=== PATIENT | male | born 1935 | race Caucasian/White ===

== ENCOUNTER 2017-07-23 10:30 | Observation (INO) ==
[2017-07-23 10:57] LABS: Basophils % 0.2 %; Eosinophils # 0.1 K/mcL (0.0-0.6); Eosinophils % 1.2 %; Hematocrit 40.9 % (37.5-50.1); Hemoglobin 13.6 g/dL (12.9-16.9); Immature Granulocytes % 0.3 % (0-4); Lymphocytes # 1.2 K/mcL (0.6-4.6); Lymphocytes % 20.2 %; Mean Corpuscular HGB Conc 33.3 g/dL (31.6-35.5); Mean Corpuscular Hemoglobin 31.7 pg (28.0-33.3); Mean Corpuscular Volume 95.3 fL (83.0-100.0); Mean Platelet Volume 11.6 fL (9.4-12.4); Monocytes # 0.5 K/mcL (0.0-1.3); Monocytes % 7.9 %; Neutrophils # 4.2 K/mcL (1.6-8.9); Platelet Count 167 K/mcL (140-400); Red Blood Count 4.29 M/mcL (4.19-5.50); Segmented Neutrophils % 70.2 %
--- NOTE | 2017-07-23 11:02 | Emergency Department Note ---
Disposition Clinical Impression: Chest pain at rest Disposition: Admitted As Inpatient Condition: Fair Referrals: Lilly Valdez, [employer] [Primary Care Provider] - Forms: ED Satisfaction Letter Time of Disposition: 12:40 Chest Pain HPI - General Chief Complaint: ED Chest Pain Stated Complaint: CP,ABD Pain, Back Pain Time Seen by Provider: 07/23/17 10:33 Vital Signs Reviewed: Yes Nursing Notes Reviewed: Yes - History of Present Illness HPI Narrative: Mr. Crain is a 81 y/o smoker with a past medical history of aortic aneurysm who presents with chest pain and mid-epigastric abdominal pain that radiates to the back. She states that the abdominal pain is a constant and dull pain and has been going on for 2 weeks. He states that the abdominal pain radiates straight to his mid back. The patient recalls that his aortic aneurysm was last checked a couple of years ago and it was not concerning at the time. Patient admits that the chest pain began 2 days ago and describe it as and intermittent and dull pain with alot of pressure. He does not know if the radiation of pain to the pain is from his abdomen only or from his chest pain as well. The patient admits tingling in both of his lower extremities. He denies any radiation to the jaw or upper extremities. He denies any fever, headaches, shortness of breath, difficulty in breathing, constipation, diarrhea , blood in the stool, blood in his urination, dysuria, any focal neurological deficits. Onset (ago): day(s) (Chest pain was present for the past 2 days and the abdominal pain has been present for 2 weeks.) Pain Location: left chest Severity scale (1-10): 6 Quality: dull, other (pressure feeling in his left chest) Pain Radiation: back Improves with: nothing Worsens with: movement Associated symptoms: Denies: nausea, vomiting, diaphoresis, dyspnea, syncope, palpitations, fever, cough - Related Data Home Medications Medication Instructions Recorded Confirmed Atorvastatin [Lipitor] 40 mg PO HS 04/26/16 11/13/16 Docusate [Colace] 100 mg PO HS PRN 04/26/16 11/13/16 Esomeprazole Magnesium [Nexium] 40 mg PO DAILY 04/26/16 11/13/16 Losartan/HCTZ [Hyzaar 50-12.5 1 tab PO DAILY 04/26/16 11/13/16 Tablet] Megestrol Acetate [Megace] 40 mg PO DAILY 04/26/16 11/13/16 Methadone 10 mg PO Q8HR 04/26/16 11/13/16 Nitroglycerin [Nitrostat] 0.4 mg SL AD PRN 04/26/16 11/13/16 Oxycodone HCl 5 mg PO Q6H PRN 04/26/16 11/13/16 Potassium Chloride [K-Tab ER] 10 meq PO DAILY 04/26/16 11/13/16 Quetiapine Fumarate [Seroquel] 100 mg PO HS 04/26/16 11/13/16 Sertraline [Zoloft] 100 mg PO DAILY 04/26/16 11/13/16 Travoprost [Travatan Z] 1 drop OP QPM 04/26/16 11/13/16 Zolpidem [Ambien] 10 mg PO HS 04/26/16 11/13/16 Lactose-Reduced Food [Ensure 1 bottle PO TID 06/13/16 11/13/16 Complete] Ondansetron HCl [Zofran] 8 mg PO Q8H PRN 06/13/16 11/13/16 DULoxetine [Cymbalta] 30 mg PO DAILY 06/27/16 11/13/16 Esomeprazole Magnesium [Nexium] 40 mg PO DAILY 11/13/16 11/13/16 Previous Rx's Medication Instructions Recorded Naproxen [Naprosyn] 500 mg PO BID #10 tablet 06/15/16 Tramadol HCl [Ultram] 50 mg PO BID PRN #10 tab 04/13/17 Dicyclomine [Bentyl] 10 mg PO QID PRN #40 capsule 06/12/17 Allergies Allergy/AdvReac Type Severity Reaction Status Date / Time codeine AdvReac Dizziness Verified 06/11/17 10:42 sucralfate [From Carafate] AdvReac Gastrointestinal Verified 06/11/17 10:42 Upset Constitutional: Denies: fever, chills, weakness, weight change Eyes: Denies: eye pain, eye discharge, vision change ENT ED: Denies: ear pain, throat pain, dental pain, hearing loss, epistaxis, congestion, dysphagia Cardiovascular: Reports: chest pain (intermittent dull chest pain ). Denies: palpitations, dyspnea on exertion, edema, syncope Respiratory: Denies: cough, dyspnea, wheezes, hemoptysis, stridor Gastrointestinal: Reports: abdominal pain (midepigastric abdominal pain that radiates to his mid back). Denies: nausea, vomiting, diarrhea, constipation, hematemesis, melena, hematochezia Genitourinary: Denies: urgency, dysuria, frequency, hematuria Musculoskeletal: Reports: back pain (midback pain), other (There are no recent trauma to the area). Denies: neck pain, arthralgia, myalgia Integumentary: Denies: rash, abrasion, lesions Neurological: Reports: paresthesias (paresthesias in both of his lower extremities). Denies: headache, weakness, numbness, confusion, abnormal gait, vertigo Psychiatric: Denies: anxiety, depression, suicidal thoughts, homicidal thoughts , auditory hallucinations, visual hallucinations Endocrine: Denies: fatigue Hematological/Lymphatic: Denies: easy bleeding, easy bruising Allergic/Immunologic: Denies: facial swelling, urticaria Chest Pain PMH - Past Medical History Medical history: Reports: COPD, coronary artery disease, GERD, glaucoma, hyperlipidemia, hypertension, thyroid disease, other Surgical history: Reports: cholecystectomy, orthopedic, other Psychiatric history: Reports: anxiety, depression - Social History Smoking Status: Current every day smoker Alcohol use: Reports: none Drug use: Reports: none Physical Exam - General Limitations: no limitations General appearance: alert, in no apparent distress - Head Head exam: atraumatic, normocephalic, normal inspection - Eye Eye exam: Present: normal appearance, PERRL, EOMI - Expanded Eye Exam Pupils: Left: reactive - ENT ENT exam: normal exam, normal oropharynx, mucous membranes moist - Expanded ENT Exam External ear exam: Present: normal external inspection Mouth exam: Present: normal external inspection Teeth exam: Present: normal inspection Throat exam: Present: normal inspection - Neck Neck exam: Present: normal inspection, full ROM, trachea midline - Chest Chest inspection: Present: normal inspection, symmetric chest wall rise - Respiratory Respiratory exam: Present: normal lung sounds bilaterally. Absent: respiratory distress, wheezes - Cardiovascular Cardiovascular exam: Present: regular rate, normal rhythm, normal heart sounds. Absent: rubs, gallop, clicks - Abdominal Exam Abdominal exam: Present: soft, tenderness (tenderness to palpation in the midepigastric and in the LLQ). Absent: distention, guarding, rebound, rigidity , trauma Abdominal tenderness: Present: LLQ, epigastrium - Extremities Exam Extremities exam: Present: normal inspection, full ROM. Absent: tenderness, pedal edema, joint swelling, calf tenderness - Expanded Upper Extremity Exam Shoulder exam: Present: normal inspection, full ROM Arm exam: Present: normal inspection, full ROM Elbow exam: Present: normal inspection, full ROM Forearm/Wrist exam: Present: normal inspection, full ROM Hand exam: Present: normal inspection, full ROM Vascular exam: Normal: capillary refill, radial pulse - Expanded Lower Extremity Exam Hip/Pelvis exam: Present: normal inspection, full ROM Upper leg exam: Present: normal inspection, full ROM. Absent: tenderness, swelling Knee exam: Present: normal inspection, full ROM Lower leg exam: Present: normal inspection, full ROM. Absent: tenderness, swelling Ankle exam: Present: normal inspection, full ROM Foot/toe exam: Present: normal inspection, full ROM Neurovascular/Tendon exam: Absent: motor deficit, sensory deficit, tendon deficit - Back Exam Back exam: Present: normal inspection, full ROM, tenderness. Absent: CVA tenderness (R), CVA tenderness (L) (tenderness in his midback) - Neurological Exam Neurological exam: Present: alert, oriented X3 - Expanded Neurological Exam Patient oriented to: Present: person, place, time Coma Scale Eye Opening: Spontaneous Coma Scale Motor Response: Obeys Commands Coma Scale Verbal Response: Oriented Coma Scale Total: 15 - Psychiatric Psychiatric exam: Present: normal affect, normal mood - Skin Skin exam: Present: warm, dry, intact, normal color Course Course Narrative: Mr. Crain is a 81 y/o M with a past medical history of aortic aneurysm who presents with epigastric pain that radiates to the back and this has been going on for 2 weeks. He also complains of chest pain that started two days ago. He states that it radiates to the back and describe it as an intermittent dull pain with a lot of pressure. The chest pain was not alleviated with Nitro in the ED, but he admits the morphine helped with the pain. CXR and CTA of chest, abdomen, and pelvis has been reviewed and showed no evidence of thoracic aortic dissection or pulmonary embolus. The patient will be admitted to rule out ACS. The patient agrees to this plan. 12:[address] Mirza, the hospitalist, and he agrees to accept the patient. - Consultations Consultation #1: 12:35 pm: Spoke with Dr. Mirza, the hospitalist, and he agreed to accept the patient. Time: 12:36 Vital Signs Temperature 98.3 F 07/23/17 10:39 Pulse Rate 90 07/23/17 10:39 Respiratory Rate 18 07/23/17 10:39 Blood Pressure 167/101 07/23/17 10:39 O2 Sat by Pulse Oximetry 95 07/23/17 10:39 Temperature 98.3 F 07/23/17 10:39 Pulse Rate 71 07/23/17 11:40 Respiratory Rate 16 07/23/17 11:40 Blood Pressure 133/83 07/23/17 11:50 O2 Sat by Pulse Oximetry 97 07/23/17 11:40 Oxygen Delivery Oxygen Delivery Room Air Chest Pain - MDM Narrative Medical decision making narrative: Mr. Crain is a 81 y/o M who presents with epigastric pain that radiates to the back and this has been going on for 2 weeks. He also complains of chest pain that started two days ago. He states that it radiates to the back and describe it as an intermittent dull pain with a lot of pressure. The chest pain was not alleviated with Nitro in the ED, but he admits the morphine helped with the pain. CXR and CTA of chest, abdomen, and pelvis has been reviewed and showed no evidence of thoracic aortic dissection or pulmonary embolus. The patient will be admitted to rule out ACS. The patient agrees to this plan. - Medical Records Medical records reviewed: Yes I reviewed the patient's medical records. - Lab Data Lab results reviewed: Yes I reviewed the patient's lab results. Result diagrams: 07/23/17 10:54 07/23/17 10:54 Lab Results 07/23/17 07/23/17 07/23/17 Range/Units 10:54 10:54 10:54 WBC 5.9 (4.3-11.1) K/mcL RBC 4.29 (4.19-5.50) M/mcL Hgb 13.6 (12.9-16.9) g/dL Hct 40.9 (37.5-50.1) % MCV 95.3 (83.0-100.0) fL MCH 31.7 (28.0-33.3) pg MCHC 33.3 (31.6-35.5) g/dL RDW 13.0 (11.5-14.5) % Plt Count 167 (140-400) K/mcL MPV 11.6 (9.4-12.4) fL Immature Gran % 0.3 (0-4) % Seg Neutrophils % 70.2 % Lymphocytes % 20.2 % Monocytes % 7.9 % Eosinophils % 1.2 % Basophils % 0.2 % Neutrophils # 4.2 (1.6-8.9) K/mcL Lymphocytes # 1.2 (0.6-4.6) K/mcL Monocytes # 0.5 (0.0-1.3) K/mcL Eosinophils # 0.1 (0.0-0.6) K/mcL Basophils # 0.0 (0.0-0.2) K/mcL Sodium 143 (136-145) mEq/L Potassium 3.2 L (3.5-4.5) mEq/L Chloride 114 H (98-109) mEq/L Carbon Dioxide 22 (19-29) mEq/L BUN 8 (8-26) mg/dL Creatinine 0.71 L (0.72-1.25) mg/dL Est GFR ( Amer) > 60 (> 60) Est GFR (Non-Af Amer) > 60 (> 60) BUN/Creatinine Ratio 11 (6-26) Glucose 93 (70-99) mg/dL Calculated Osmolality 294 (280-300) Calcium 8.2 L (8.6-10.8) mg/dL Total Bilirubin 0.4 (0.2-1.2) mg/dL AST 16 (5-34) Units/L ALT 11 (0-55) Units/L Alkaline Phosphatase 74 (38-126) Units/L Troponin I 0.02 (0-0.03) ng/mL Serum Total Protein 6.3 (6.0-8.3) g/dL Albumin 3.4 L (3.5-5.0) g/dL Globulin 2.9 (2.4-3.5) g/dL Albumin/Globulin Ratio 1.2 (1.1-2.2) Lipase 24 (8-78) Units/L - EKG Data EKG attestation: Yes I reviewed and interpreted this EKG. EKG shows normal: sinus rhythm Rate: normal Rhythm: NSR [place]/QRS: normal When compared to previous EKG there are: no significant changes Interpretation: normal EKG
--- NOTE | 2017-07-23 11:02 | Emergency Department Note ---
START Narrative - START START: I examined this patient and my medical decision-making was reviewed with the Resident Physician. I agree with the documented findings, disposition and treatment plan as described except to the extent set forth below. 81-year-old male presents to the ER with chest pain abdominal pain and back pain. He denies history of coronary disease. Denies ulcer symptoms. No blood in his stool. Pain is located in the upper abdomen and radiates to his back. No vomiting or diarrhea. Plan to do a CTA chest abdomen pelvis to evaluate his aorta. He states he has a known AAA diagnosis in the past. Symptom onset has been 3 weeks. He thought it was worse today.
[2017-07-23 11:12] LABS: Alanine Aminotransferase 11 Units/L (0-55); Albumin 3.4 g/dL (3.5-5.0); Albumin/Globulin Ratio 1.2 (1.1-2.2); Alkaline Phosphatase 74 Units/L (38-126); Aspartate Amino Transferase 16 Units/L (5-34); BUN/Creatinine Ratio 11 (6-26); Bilirubin,Total 0.4 mg/dL (0.2-1.2); Blood Urea Nitrogen 8 mg/dL (8-26); Calcium 8.2 mg/dL (8.6-10.8); Carbon Dioxide 22 mEq/L (19-29); Chloride 114 mEq/L (98-109); Globulin 2.9 g/dL (2.4-3.5); Glucose 93 mg/dL (70-99); Lipase 24 Units/L (8-78); Osmolality,Calculated 294 (280-300); Potassium 3.2 mEq/L (3.5-4.5); Sodium 143 mEq/L (136-145); Total Protein 6.3 g/dL (6.0-8.3); eGFR For African Americans > 60 (> 60); eGFR For Non-African Americans > 60 (> 60)
[2017-07-23] MEDS: Nitroglycerin 0.4 MG TAB.SUBL SL PRN ×2 (11:39→11:49)
[2017-07-23] MEDS ORDERED: *HR* Morphine 2 MG/ML SYRINGE IVP ONE (11:52)
[2017-07-23] MEDS ORDERED: Ondansetron 4 MG/2 ML VIAL IVP PRN (13:20)
[2017-07-23] MEDS ORDERED: Naloxone 0.4 MG/ML INJ IVP PRN (13:20)
[2017-07-23] MEDS ORDERED: Acetaminophen 325 MG TABLET PO PRN (13:20)
--- NOTE | 2017-07-23 13:40 | Internal Med History&Physical ---
<Jacki Torres - Last Filed: 07/23/17 14:37> Date of Encounter: 07/23/17 Time of Encounter: 13:34 Assessment and Plan (1) Chest pain Current visit: Yes Status: Acute 1 patient has been having CP x2 days which he describes as dull pressure, nonradiating he did have a cardiac catheterization in 2013 which showed mild CAD nonocclusive he underwent a stress test last year which was negative for any ischemia. His first troponin is 0.02 which we will continue to trend 2 we will continue with aspirin and statin bladder low-dose beta eliezer 3 continuous cardiac monitoring 4 NPO by mouth after midnight 5 stress test in a.m. 6 consult cardiology as needed 7 nitroglycerin and morphine as needed for chest pain 8 oxygen as needed to maintain SPO2 greater than 92% Qualifiers: Chest pain type: unspecified Qualified Code(s): R07.9 - Chest pain, unspecified (2) HTN (hypertension) Current visit: Yes Status: Acute 1 we will add low-dose metoprolol 12.5 twice a day and monitor blood pressure Qualifiers: Hypertension type: essential hypertension Qualified Code(s): I10 - Essential (primary) hypertension (3) Tobacco abuse Current visit: Yes Status: Acute Encourage patient to stop smoking nicotine patch (4) Abdominal pain Current visit: No Status: Chronic 1 patient has been experiencing chronic abdominal pain for over a year. He is seen by Dr. Munoz as outpatient. It seems he had an EGD completed in December which was normal. According to [facility] notes of Dr. Mancuso he suspects this is related to chronic pancreatitis. 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 MRI in November showed diffuse atrophy of the pancreas with no dilatation of the pancreatic duct. He was to be referred to [facility] pancreatic center for further care. We will have patient follow-up as outpatient and consult as needed 2 protonix IV twice a day Qualifiers: Abdominal location: generalized Qualified Code(s): R10.84 - Generalized abdominal pain (5) History of abdominal aortic aneurysm Current visit: No Status: Chronic Previous CT 04/27/16 showed stable ascending thoracic aortic aneurysm measuring 3.9 cm today aneurysm measures 4 cm. We will control blood pressure maintaining systolic less than 140. (6) DVT prophylaxis Current visit: Yes Status: Acute [facility] Internal Medicine - H&P: HPI Chief complaint: cp Admitted From: Emergency Dept Plans for Post Hospital Care: Home History of present illness: Mr. Crain is a 81 year old male has history of mild CAD chronic abdominal pain hypertension hyperlipidemia GERD with esophagitis aortic aneurysm and chronic tobacco abuse. Patient has been experiencing abdominal pain that has been ongoing for the past 2 weeks. Describes the pain as dull and it radiates to his mid back. He also has been experiencing sternal chest pain 10/10 to describes as intermittent dull pressure which is nonradiating and is aggravated with exertion and relieved with rest. He also has associated symptoms of nausea and shortness of breath diaphoresis and lightheadedness. He did have a cardiac stress test last year which was negative for any ischemia. He also had a cardiac catheterization in 2013 which showed nonocclusive CAD. He denies any fevers chills vomiting diarrhea or palpitations. He presented to the ER with complaints ER workup revealed unremarkable lab work troponin 0.02. EKG with no ST-T wave abnormalities noted. Chest x-ray with no acute process CTA of abdomen and chest revealed no evidence of thoracic aortic dissection or pulmonary embolism. Ascending thoracic aorta ectasia 4 cm in diameter according to records previous measurement and 04/27/2016 showed a measurement of 3.9 cm. The patient was Morphine Which Did Ease His Pain and He Has Been Admitted for Further Workup and Evaluation. Presently patient complains of epigastric burning and midsternal chest pressure which he rates as 6 out of 10. He is sinus rhythm on the monitor on sounds are clear heart sounds are regular S1 and S2 with no murmurs clicks, murmurs noted. Abdomen is soft tenderness to palpation in epigastric region and LLQ. He is hemodynamically stable this time I reviewed this case with Dr Mirza who agrees with plan Past Med Surg Social Fam HX - Past Medical History Medical history: COPD, coronary artery disease, GERD, glaucoma, hyperlipidemia, hypertension, thyroid disease, other Psychiatric history: anxiety, depression - Past Surgical History Surgical History: cholecystectomy, orthopedic, other - Social History Smoking Status: Current every day smoker Smokeless Tobacco Status: No Alcohol use: none Drug use: none - Family History Mother Adopted: No Family Member Ethnicity: Non- Living Status: Hx Family Cardiac Disorders: Yes Hx Family Respiratory Disorders: No Hx Family Cancer: Yes Hx Family GI Disorders: No Hx Family Endocrine Disorder: No Hx Family Neuromuscular Disorders: No Hx Family Neurologic Disorders: No Hx Family HEENT Disorders: No Hx Family Autoimmune Disorders: No Internal Medicine - H&P: Meds Atorvastatin [Lipitor] 40 mg PO HS 04/26/16 [History] Docusate [Colace] 100 mg PO HS PRN 04/26/16 [History] Esomeprazole Magnesium [Nexium] 40 mg PO DAILY 04/26/16 [History] Megestrol Acetate [Megace] 40 mg PO DAILY 04/26/16 [History] Nitroglycerin [Nitrostat] 0.4 mg SL AD PRN 04/26/16 [History] Potassium Chloride [K-Tab ER] 10 meq PO DAILY 04/26/16 [History] Quetiapine Fumarate [Seroquel] 100 mg PO HS 04/26/16 [History] Sertraline [Zoloft] 100 mg PO DAILY 04/26/16 [History] Zolpidem [Ambien] 10 mg PO HS 04/26/16 [History] Lactose-Reduced Food [Ensure Complete] 1 bottle PO TID 06/13/16 [History] DULoxetine [Cymbalta] 30 mg PO DAILY 06/27/16 [History] Tramadol HCl [Ultram] 50 mg PO BID PRN #10 tab 04/13/17 [Rx] Albuterol Sulfate [Albuterol Inhaler] 2 puff IH Q4-6H PRN 07/23/17 [History] Latanoprost [Xalatan] 1 drop BOTH EYES HS 07/23/17 [History] 3 Allergy/AdvReac Type Severity Reaction Status Date / Time codeine AdvReac Dizziness Verified 06/11/17 10:42 sucralfate [From Carafate] AdvReac Gastrointestinal Verified 06/11/17 10:42 Upset All Systems PM: A 10-system review of systems was performed and is negative for pertinent findings except as documented above in the HPI. - Constitutional Constitutional: no chills, no fever(s), no night sweats - EENT Eyes: no change in vision, no discharge, no pain, no photophobia Nose, mouth and throat: no dysphagia, no nasal discharge, no neck pain, no sore throat - Cardiovascular Cardiovascular ROS IM: chest pain, no diaphoresis, no dyspnea, no lightheadedness, no palpitations, no syncope - Respiratory Respiratory: no cough, no dyspnea, no wheezing, no excessive phlegm production - Gastrointestinal Gastrointestinal: abdominal pain, nausea, no diarrhea, no hematemesis, no hematochezia, no melena, no vomiting - Musculoskeletal Musculoskeletal ROS IM: no numbness, no tingling - Integumentary Integumentary IM: no rash, no unusual bruising - Neurological Neurological ROS: no confusion, no convulsions, no focal weakness, no numbness, no tingling, no tremor(s) - Hematologic/Lymphatic Hematologic/Lymphatic: no easy bruising - Constitutional Vitals: Temp Pulse Resp BP Pulse Ox 98.3 F 71 16 133/83 97 07/23/17 10:39 07/23/17 11:40 07/23/17 11:40 07/23/17 11:50 07/23/17 11:40 General appearance: Present: A&O X 3, answers questions appropriately - Head Head exam: Present: atraumatic, normocephalic - Eye Eye exam: Present: PERRL, conjuntiva pink, sclera anicteric Pupils: Present: PERRL - Neck Neck exam general surgery: Present: supple, trachea midline. Absent: lymphadenopathy - Respiratory Respiratory exam: Present: CTAB. Absent: accessory muscle use, rales, rhonchi, wheezes - Cardiovascular Cardiovascular exam: Present: RRR, +S1, +S2. Absent: diastolic murmur, gallop, rubs, systolic murmur - GI/Abdominal GI/Abdominal exam: Present: normal bowel sounds, soft, tenderness, no peritoneal signs. Absent: distended - Extremities Exam Extremities exam: Present: warm, radial pulses palpable and symmetrical. Absent : calf tenderness, cyanotic, pedal edema - Neurological Exam Neurological exam: Present: CN II-XII intact, oriented X3, no focal deficits. Absent: pronater drift, facial droop, speech deficit Internal Med - H&P Results - Labs CBC & Chem 7: 07/23/17 10:54 07/23/17 10:54 Labs: Short CBC 07/23/17 Range/Units 10:54 WBC 5.9 (4.3-11.1) K/mcL Hgb 13.6 (12.9-16.9) g/dL Hct 40.9 (37.5-50.1) % Plt Count 167 (140-400) K/mcL Neutrophils # 4.2 (1.6-8.9) K/mcL BMP 07/23/17 10:54 Sodium 143 Potassium 3.2 L Chloride 114 H Carbon Dioxide 22 BUN 8 Creatinine 0.71 L Glucose 93 Calcium 8.2 L Cardiac Enzymes 07/23/17 Range/Units 10:54 Troponin I 0.02 (0-0.03) ng/mL Liver Function 07/23/17 Range/Units 10:54 Total Bilirubin 0.4 (0.2-1.2) mg/dL AST 16 (5-34) Units/L ALT 11 (0-55) Units/L Alkaline Phosphatase 74 (38-126) Units/L Albumin 3.4 L (3.5-5.0) g/dL - EKG Data EKG shows normal: sinus rhythm Rate: normal - Impressions ITS Impressions Abdomen/Pelvis CTA 07/23/17 10:43 IMPRESSION: 1. No evidence of thoracic aortic dissection or pulmonary embolus. 2. Ascending thoracic aorta ectasia, 4 cm in diameter. 3. 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 4. Subendocardial hypodensity in the left ventricular apex. This may represent scar tissue in the setting of prior myocardial infarction or an area of hypoperfusion. 5. Incidental finding of a 1.5 cm hyperdensity in the right hepatic lobe. Finding not well seen on prior MRI of January 04, 2017. This would better be assessed with dedicated liver MRI. 6. Status post cholecystectomy with chronic mild dilation of the common bile duct. D/ / 07/23/2017 12:11:43 Tommie Robles MD / [facility] Interpreting Provider: Tommie Robles MD Chest CTA 07/23/17 10:43 IMPRESSION: 1. No evidence of thoracic aortic dissection or pulmonary embolus. 2. Ascending thoracic aorta ectasia, 4 cm in diameter. 3. 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 4. Subendocardial hypodensity in the left ventricular apex. This may represent scar tissue in the setting of prior myocardial infarction or an area of hypoperfusion. 5. Incidental finding of a 1.5 cm hyperdensity in the right hepatic lobe. Finding not well seen on prior MRI of January 04, 2017. This would better be assessed with dedicated liver MRI. 6. Status post cholecystectomy with chronic mild dilation of the common bile duct. D/ / 07/23/2017 12:11:43 Tommie Robles MD / [facility] Interpreting Provider: Tommie Robles MD Chest X-Ray 07/23/17 10:52 IMPRESSION: No acute process. D/ / Shira Mayo MD / Shira Mayo MD Interpreting Provider: Shira Mayo MD - Diagnostic Studies Other Images Additional comments: Abdomen/Pelvis CTA 07/23/17 10:43 IMPRESSION: 1. No evidence of thoracic aortic dissection or pulmonary embolus. 2. Ascending thoracic aorta ectasia, 4 cm in diameter. 3. 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 4. Subendocardial hypodensity in the left ventricular apex. This may represent scar tissue in the setting of prior myocardial infarction or an area of hypoperfusion. 5. Incidental finding of a 1.5 cm hyperdensity in the right hepatic lobe. Finding not well seen on prior MRI of January 04, 2017. This would better be assessed with dedicated liver MRI. 6. Status post cholecystectomy with chronic mild dilation of the common bile duct. D/ / 07/23/2017 12:11:43 Tommie Robles MD / [facility] Interpreting Provider: Tommie Robles MD Chest CTA 07/23/17 10:43 IMPRESSION: 1. No evidence of thoracic aortic dissection or pulmonary embolus. 2. Ascending thoracic aorta ectasia, 4 cm in diameter. 3. 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 4. Subendocardial hypodensity in the left ventricular apex. This may represent scar tissue in the setting of prior myocardial infarction or an area of hypoperfusion. 5. Incidental finding of a 1.5 cm hyperdensity in the right hepatic lobe. Finding not well seen on prior MRI of January 04, 2017. This would better be assessed with dedicated liver MRI. 6. Status post cholecystectomy with chronic mild dilation of the common bile duct. D/ / 07/23/2017 12:11:43 Tommie Robles MD / [facility] Interpreting Provider: Tommie Robles MD Chest X-Ray 07/23/17 10:52 IMPRESSION: No acute process. D/ / Shira Mayo MD / Shira Mayo MD Interpreting Provider: Shira Mayo MD <Louie Ferreira - Last Filed: 07/23/17 15:49> Date of Encounter: 07/23/17 Internal Medicine - H&P: HPI History of present illness: Mr. Crain is a 81 year old male All Systems PM: A 10-system review of systems was performed and is negative for pertinent findings except as documented above in the HPI. - Constitutional Vitals: Temp Pulse Resp BP Pulse Ox 97.6 F 64 16 133/80 98 07/23/17 15:02 07/23/17 15:02 07/23/17 15:02 07/23/17 15:02 07/23/17 15:02 Internal Med - H&P Results - Labs CBC & Chem 7: 07/23/17 10:54 07/23/17 10:54 - Attending Attestation I examined this patient and my medical decision-making was reviewed with the HAIR WORKER. I agree with the documented findings, disposition and treatment plan as described except to the extent set forth below. Patient is a 81-year-old male with past medical history of COPD, coronary artery disease, GERD, hyperlipidemia, hypertension, chronic back pain and chronic abdominal pain secondary to chronic pancreatitis. Patient presents to ED with complaints of chest pain and abdominal pain. Does have a history of aneurysm and CTA chest is negative for any aortic dissection. Troponin is negative. EKG shows normal sinus rhythm. No other acute findings. On examination patient is awake and alert. Not in any distress. Comfortably sitting in bed. States his chest pain has improved. Heart rate 64, blood pressure 133/80, O2 98% on room air. Heart S1-S2 positive no murmurs. Lungs bilateral good air entry no wheeze or crackle. Abdomen soft mild epigastric tenderness. Extremities all pulses strong and regular no edema.
[2017-07-23] MEDS ORDERED: Aspirin 81 MG TAB.CHEW PO STA (14:14)
[2017-07-23] MEDS: *HR* Morphine 2 MG/ML SYRINGE IVP PRN (15:39)
[2017-07-23] MEDS: Pantoprazole 40 MG VIAL IVP SCH ×2 (15:39→20:17)
[2017-07-23] MEDS: Nicotine 14 MG PATCH.TD24 TD SCH (15:39)
--- NOTE | 2017-07-23 19:15 | Electrocardiograph Report ---
[address] [address] Test Date: 2017-07-23 Pat Name: Jason Crain Department: 103 Room: 3B22 Gender: M Stockkeeper: AM : 1935 Requested By: Tanja Cormier Order Number: [id number] Reading MD: Anthony Perry MD Measurements Intervals Pioneer Rate: 84 P: 65 NC: 162 QRS: 77 QRSD: 97 T: 75 QT: 371 QTc: 412 Interpretive Statements SINUS RHYTHM Electronically Signed On 07-23-2017 19:13:39 EDT by Anthony Perry MD
[2017-07-23] MEDS ORDERED: Latanoprost 2.5 ML BOTTLE BOTH EYES SCH (21:00)
[2017-07-24 04:06] LABS: Basophils % 0.2 %; Eosinophils # 0.1 K/mcL (0.0-0.6); Eosinophils % 1.6 %; Hematocrit 38.3 % (37.5-50.1); Hemoglobin 12.6 g/dL (12.9-16.9); Immature Granulocytes % 0.2 % (0-4); Lymphocytes # 2.3 K/mcL (0.6-4.6); Lymphocytes % 40.6 %; Mean Corpuscular HGB Conc 32.9 g/dL (31.6-35.5); Mean Corpuscular Hemoglobin 31.8 pg (28.0-33.3); Mean Corpuscular Volume 96.7 fL (83.0-100.0); Mean Platelet Volume 11.9 fL (9.4-12.4); Monocytes # 0.5 K/mcL (0.0-1.3); Monocytes % 8.5 %; Neutrophils # 2.7 K/mcL (1.6-8.9); Platelet Count 152 K/mcL (140-400); Red Blood Count 3.96 M/mcL (4.19-5.50); Segmented Neutrophils % 48.9 %
[2017-07-24 04:22] LABS: BUN/Creatinine Ratio 14 (6-26); Blood Urea Nitrogen 12 mg/dL (8-26); Calcium 9.4 mg/dL (8.6-10.8); Carbon Dioxide 24 mEq/L (19-29); Chloride 111 mEq/L (98-109); Chol/HDL Ratio 3.1 (0-4.9); Cholesterol 105 mg/dL (< 200); Glucose 85 mg/dL (70-99); HDL Cholesterol 34 mg/dL (40-59); LDL Cholesterol,Calculated 57 mg/dL (0-99); Magnesium 2.1 mg/dL (1.6-2.6); Osmolality,Calculated 293 (280-300); Sodium 142 mEq/L (136-145); Triglycerides 70 mg/dL (< 150); eGFR For African Americans > 60 (> 60); eGFR For Non-African Americans > 60 (> 60)
[2017-07-24 04:26] LABS: Potassium 4.4 mEq/L (3.5-4.5)
[2017-07-24] MEDS ORDERED: Regadenoson 0.4 MG/5 ML SYRINGE IVP ONE (06:10)
[2017-07-24] MEDS: *HR* Morphine 2 MG/ML SYRINGE IVP PRN ×2 (06:35→11:18)
[2017-07-24] MEDS ORDERED: *HR* Enoxaparin 40 MG/0.4 ML SYRINGE SQ SCH (07:00)
[2017-07-24] MEDS ORDERED: Aspirin Enteric Coated 81 MG Tablet PO SCH (09:00)
[2017-07-24] MEDS: Pantoprazole 40 MG VIAL IVP SCH (09:36)
[2017-07-24] MEDS: Nicotine 14 MG PATCH.TD24 TD SCH (09:36)
--- NOTE | 2017-07-24 10:51 | Nuclear Medicine Stress Report ---
Regadenoson Nuclear Stress Name: Jason Crain Date of Study: 07/24/2017 Date: 1935 Ht: 70.0 in Medical Record#: [id number] Age: 81 Wt: 158.0 lb Gender: Male Order #: [id number] Location: [facility] Room: [facility] Supervising Provider: David Mendoza CNP Reading Physician: Yaya Jon MD, [facility] Ordering Physician: Marianna Edwards CNP Stress Technologist: Blanka Lantigua RRT,[facility] Credit Risk Associate: Isis Saldana Indications: Chest Pain Impression: Patient reported severe chest pain in recovery. No significant ECG changes with regadenoson or in recovery. Gated LVEF = 67%. Perfusion imaging was negative for ischemia or infarct. History: Hypercholesteremia History of Smoking Stress Test Summary: Stress Test Type: Pharmacologic Regadenoson 0.4mg/5ml given IV Baseline Information: Initial Heart Rate: 71 Blood Pressure: 116/68 Stress Information: Test Terminated Due to (primary): As per protocol Maximum Blood Pressure: 110/68 Maximum Heart Rate: 88 Percent Maximum Heart Rate Achieved: 62 Double Product: [id number] Symptoms: Chest pain Nuclear Summary: SPECT myocardial perfusion imaging using Tc99m Sestamibi given intravenously was performed at rest and following cardiac stress testing. The resting images were obtained following initial dose of 10.5 mCi. Following stress an additional dose of 30.0 mCi was given at peak exercise or 30 seconds post regadenoson infusion. Findings: Stress Note * Resting ECG demonstrated normal sinus rhythm. * Rare PVCs noted prior to exam beginning. * Patient reported severe chest pain in recovery. * No arrhythmias were noted during stress. * No significant ECG changes with regadenoson or in recovery. Hemodynamic responses * Normal hemodynamic responses to pharmacologic stress. Study Quality * Study quality is average. Gated EF % * Gated LVEF = 67%. Left Ventricle * The left ventricle is not dilated. * Normal Segmental Perfusion in rest. * Normal segmental perfusion in stress. TID * No evidence of transient ischemic dilatation. Updated by Yaya Jon MD, [facility] on 07/24/2017 10:43:34 AM electronically signed on 07/24/2017 10:44:24 AM with status of Final
[2017-07-24 15:02] VITALS: BP 105/70
--- NOTE | 2017-07-24 15:17 | Discharge Summary ---
<Sukumar Cortes - Last Filed: 07/24/17 15:45> Date of Encounter: 07/24/17 Time of Encounter: 15:13 - Discharge Diagnosis (1) Chest pain Priority: Primary Status: Acute Qualifiers: Chest pain type: unspecified Qualified Code(s): R07.9 - Chest pain, unspecified (2) Abdominal pain Priority: Secondary Status: Chronic Qualifiers: Abdominal location: generalized Qualified Code(s): R10.84 - Generalized abdominal pain (3) HTN (hypertension) Priority: Secondary Status: Acute Qualifiers: Hypertension type: essential hypertension Qualified Code(s): I10 - Essential (primary) hypertension (4) Tobacco abuse Priority: Secondary Status: Acute (5) DVT prophylaxis Priority: Secondary Status: Acute (6) History of abdominal aortic aneurysm Priority: Secondary Status: Chronic - Discharge Medications Prescriptions: Aspirin Enteric Coated [Aspirin EC] 81 mg PO DAILY #30 tablet. Metoprolol [Lopressor] 12.5 mg PO BID #60 tab Home Medications: Atorvastatin [Lipitor] 40 mg PO HS 04/26/16 [History] Docusate [Colace] 100 mg PO HS PRN 04/26/16 [History] Esomeprazole Magnesium [Nexium] 40 mg PO DAILY 04/26/16 [History] Megestrol Acetate [Megace] 40 mg PO DAILY 04/26/16 [History] Nitroglycerin [Nitrostat] 0.4 mg SL AD PRN 04/26/16 [History] Potassium Chloride [K-Tab ER] 10 meq PO DAILY 04/26/16 [History] Quetiapine Fumarate [Seroquel] 100 mg PO HS 04/26/16 [History] Sertraline [Zoloft] 100 mg PO DAILY 04/26/16 [History] Zolpidem [Ambien] 10 mg PO HS 04/26/16 [History] Lactose-Reduced Food [Ensure Complete] 1 bottle PO TID 06/13/16 [History] DULoxetine [Cymbalta] 30 mg PO DAILY 06/27/16 [History] Tramadol HCl [Ultram] 50 mg PO BID PRN #10 tab 04/13/17 [Rx] Albuterol Sulfate [Albuterol Inhaler] 2 puff IH Q4-6H PRN 07/23/17 [History] Latanoprost [Xalatan] 1 drop BOTH EYES HS 07/23/17 [History] Aspirin Enteric Coated [Aspirin EC] 81 mg PO DAILY #30 tablet. 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 Discharging clinician: Sukumar Cortes Anticipated date of discharge: 07/24/17 - Patient Status Disposition: Home Health Service Condition: Fair Functional capacity at discharge: independent ambulation Overall status at discharge: patient is progressing back to baseline - Discharge Instructions Instructions: Metoprolol (By mouth), Angina (DC) Follow Up With: Lilly Valdez CNP [Primary Care Provider] - Additional Instructions: Please follow up with primary care physician. Please refer to the emergency department if you have return of nausea, vomiting , chest pain. Please ask primary care physician about referral to [facility] pancreatic center. - Diet and Activity Activity: increase activity as tolerated Diet: low fat, low cholesterol, low salt diet Hospital course: Mr. Crain is a 81 year old male presented with chest pain and midepigastric abdominal pain that radiated to the back. Abdominal pain was going on for 2 weeks. Chest pain began 2 days ago, substernal 1010, intermittent nonradiating aggravated with exertion and relieved with rest. He had nausea, diaphoresis, shortness of breath, lightheadedness. 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 Troponin within normal limits. EKG was sinus rhythm with a rate of 84. This patient has history of coronary disease who is admitted for further evaluation. Patient had a nuclear stress test showed a LVEF of 67% with no evidence of ischemia or infarct. Patient was able to tolerate his diet, is ambulatory and ready for discharge. According to patient's history he has had chronic abdominal pain for a year and is been seen by DrDale: Rita. He was advised by gastroenterology outpatient this is related to his chronic pancreatitis and there was a plan to refer patient received pancreatic center for further care. Plan: Patient aspirin and metoprolol continued. Patient should follow up with primary care physician to be evaluated for the liver hypodensity found on CT abdomen and pelvis. Follow up with primary care physician for referral to [facility]. - Time Spent with Patient Total time spent providing and/or coordinating discharge services: - Constitutional Vitals: Temp Pulse Resp BP Pulse Ox 98.3 F 75 16 105/70 97 07/24/17 15:00 07/24/17 15:00 07/24/17 15:00 07/24/17 15:00 07/24/17 15:00 General appearance: Present: A&O X 3, answers questions appropriately - Head Head exam: Present: atraumatic, normocephalic - Eye Eye exam: Present: PERRL, conjuntiva pink, sclera anicteric Pupils: Present: PERRL - Neck Neck exam general surgery: Present: supple, trachea midline. Absent: lymphadenopathy - Respiratory Respiratory exam: Present: CTAB. Absent: accessory muscle use, rales, rhonchi, wheezes - Cardiovascular Cardiovascular exam: Present: RRR, +S1, +S2. Absent: diastolic murmur, gallop, rubs, systolic murmur - GI/Abdominal GI/Abdominal exam: Present: normal bowel sounds, soft, no peritoneal signs. Absent: distended, tenderness - Extremities Exam Extremities exam: Present: warm, radial pulses palpable and symmetrical. Absent : calf tenderness, cyanotic, pedal edema - Neurological Exam Neurological exam: Present: CN II-XII intact, oriented X3, no focal deficits. Absent: pronater drift, facial droop, speech deficit - Skin Skin exam: Present: dry, intact <Jaime Chin - Last Filed: 07/24/17 18:24> Date of Encounter: 07/24/17 - Discharge Diagnosis (1) Chronic pancreatitis Priority: Primary Status: Acute Qualifiers: Pancreatitis type: other Qualified Code(s): K86.1 - Other chronic pancreatitis (2) Chest pain Status: Acute Qualifiers: Chest pain type: precordial pain Qualified Code(s): R07.2 - Precordial pain (3) HTN (hypertension) Status: Chronic Qualifiers: Hypertension type: essential hypertension Qualified Code(s): I10 - Essential (primary) hypertension (4) Tobacco abuse Status: Chronic Date of admission: 07/23/17 13:25 Primary care physician: Lilly Valdez CNP Consults: 07/24/17 09:52 Consult to Varsity Baseball Coach [CONS] Routine Reason for SW Consult: Patient time checker caregiver to disabled . Hospital course: Mr. Crain is a 81 year old male - Time Spent with Patient Total time spent providing and/or coordinating discharge services: 32min - Constitutional Vitals: Temp Pulse Resp BP Pulse Ox 98.3 F 75 16 105/70 97 07/24/17 15:00 07/24/17 15:00 07/24/17 15:00 07/24/17 15:00 07/24/17 15:00 - Attending Attestation I examined this patient and my medical decision-making was reviewed with the Resident Physician on 07/24/17. I agree with the documented findings, disposition and treatment plan as described except to the extent set forth below. Mr. Crain has been admitted for chest pain. He has a negative stress test. He is afebrile with stable vitals. He continues to have abdominal pain consistent with chronic pancreatitis. He has been seen by social work and ready for discharge home. Exam Alert Comfortable Heart reg No wheeze Abd with some mid epigastric discomfort Plan D/C today Follow up with PCP and [facility] for pancreas.
--- NOTE | 2017-07-24 15:27 | Physician Discharge Referral ---
Home Health/Hosp Referral Info Transfer to: Home Health Attending Provider: Dr. Giuseppe Sandoval Provider in Charge Post Discharge: PCP - Diagnosis (1) Chest pain Priority: Primary Status: Acute (2) Abdominal pain Priority: Secondary Status: Chronic (3) HTN (hypertension) Priority: Secondary Status: Acute (4) Tobacco abuse Priority: Secondary Status: Acute (5) DVT prophylaxis Priority: Secondary Status: Acute (6) History of abdominal aortic aneurysm Priority: Secondary Status: Chronic - Respiratory Orders Smoking Cessation: Smoking cessation has been advised. For more information, call the [place] Tobacco Quit Line at 4-468-TMTT-NOW. - Diet/Nutrition Diet/Nutrition Orders: Cardiac - Activity Activity Orders: Up ad henna - Services Needed Following services are medically necessary services: Nursing - Transfer Medications Prescriptions: Aspirin Enteric Coated [Aspirin EC] 81 mg PO DAILY #30 tablet. Metoprolol [Lopressor] 12.5 mg PO BID #60 tab Home Medications: Atorvastatin [Lipitor] 40 mg PO HS 04/26/16 [History] Docusate [Colace] 100 mg PO HS PRN 04/26/16 [History] Esomeprazole Magnesium [Nexium] 40 mg PO DAILY 04/26/16 [History] Megestrol Acetate [Megace] 40 mg PO DAILY 04/26/16 [History] Nitroglycerin [Nitrostat] 0.4 mg SL AD PRN 04/26/16 [History] Potassium Chloride [K-Tab ER] 10 meq PO DAILY 04/26/16 [History] Quetiapine Fumarate [Seroquel] 100 mg PO HS 04/26/16 [History] Sertraline [Zoloft] 100 mg PO DAILY 04/26/16 [History] Zolpidem [Ambien] 10 mg PO HS 04/26/16 [History] Lactose-Reduced Food [Ensure Complete] 1 bottle PO TID 06/13/16 [History] DULoxetine [Cymbalta] 30 mg PO DAILY 06/27/16 [History] Tramadol HCl [Ultram] 50 mg PO BID PRN #10 tab 04/13/17 [Rx] Albuterol Sulfate [Albuterol Inhaler] 2 puff IH Q4-6H PRN 07/23/17 [History] Latanoprost [Xalatan] 1 drop BOTH EYES HS 07/23/17 [History] Aspirin Enteric Coated [Aspirin EC] 81 mg PO DAILY #30 tablet. 07/24/17 [Rx] Metoprolol [Lopressor] 12.5 mg PO BID #60 tab 07/24/17 [Rx] Allergies/Adverse Reactions: 3 Allergy/AdvReac Type Severity Reaction Status Date / Time codeine AdvReac Dizziness Verified 06/11/17 10:42 sucralfate [From Carafate] AdvReac Gastrointestinal Verified 06/11/17 10:42 Upset Certification: Further, I certify that my clinical findings support that this patient is homebound (i.e. absences from home require considerable and taxing effort and are for medical reasons or shinto services or infrequently or short duration when for other reasons) because: Homebound Reason: Patient requires assistance of a person or device to safely leave home Attestation: My signature below is to certify that this patient is under my care and that I, or nurse practitioner, or a physician's medical assistant secretary working with me, has a face-to -face encounter with this patient.
== END 2017-07-24 16:03 | disposition home health service (06) ==
LOC: EMEROO 10:30 → 3BNU 10:30 → SUATTDRO 13:25 → 3BNU 14:10
PROVIDERS: ADMIT Family Medicine; ATTEND Internal Medicine

== ENCOUNTER 2018-03-14 11:29 | Observation (INO) ==
[2018-03-14] MEDS ORDERED: Aspirin 81 MG TAB.CHEW PO STA (11:47)
--- NOTE | 2018-03-14 11:49 | Emergency Department Note ---
Disposition Clinical Impression: Chest pain Qualifiers: Chest pain type: unspecified Qualified Code(s): R07.9 - Chest pain, unspecified Disposition: Admitted As Inpatient Referrals: Lilly Valdez, PUMP OPERATOR [Advanced Practice Nurse] - Forms: ED Satisfaction Letter Time of Disposition: 13:24 Chest Pain HPI - General Chief Complaint: ED Chest Pain Stated Complaint: Chest Pain Time Seen by Provider: 03/14/18 11:46 Source: patient Mode of arrival: ambulatory Limitations: no limitations Vital Signs Reviewed: Yes Nursing Notes Reviewed: Yes - History of Present Illness HPI Narrative: 82-year-old with no previous cardiac history comes in complaining of chest pain that started to arrival. Risk factors include cigarette smoking he stopped 6 weeks ago and family history. Patient denies diabetes hypertension and high cholesterol. [facility]en [facility] the [facility] and sent here for further evaluation and treatment. She also states he has some night sweats but denies hemoptysis Pt complaint: chest pain Onset (ago): hour(s) Duration: intermittent Onset: during rest Pain Location: substernal, left chest Severity scale (1-10): 8 Quality: tightness, aching Pain Radiation: none Worsens with: nothing Treatments prior to arrival chest pain: nitroglycerin - Related Data Home Medications Medication Instructions Recorded Confirmed Atorvastatin [Lipitor] 40 mg PO HS 04/26/16 03/14/18 Docusate [Colace] 100 mg PO HS PRN 04/26/16 03/14/18 Esomeprazole Magnesium [Nexium] 40 mg PO DAILY 04/26/16 03/14/18 Megestrol Acetate [Megace] 40 mg PO DAILY 04/26/16 03/14/18 Nitroglycerin [Nitrostat] 0.4 mg SL AD PRN 04/26/16 03/14/18 Potassium Chloride [K-Tab ER] 10 meq PO DAILY 04/26/16 03/14/18 Quetiapine Fumarate [Seroquel] 100 mg PO HS 04/26/16 03/14/18 Sertraline [Zoloft] 100 mg PO DAILY 04/26/16 03/14/18 Zolpidem [Ambien] 10 mg PO HS 04/26/16 03/14/18 Albuterol Sulfate [Albuterol 2 puff IH Q4-6H PRN 07/23/17 03/14/18 Inhaler] Salmeterol Xinafoate [Serevent 50 mcg IH BID 09/15/17 03/14/18 Diskus] Travoprost [Travatan Z] 1 drop OP BID 03/14/18 03/14/18 Previous Rx's Medication Instructions Recorded Aspirin Enteric Coated [Aspirin EC] 81 mg PO DAILY #30 tablet. 07/24/17 Metoprolol [Lopressor] 12.5 mg PO BID #60 tab 07/24/17 Gabapentin [Neurontin] 300 mg PO TID #14 capsule 09/14/17 Lidocaine [Lidoderm] 1 each TP DAILY #6 adh..patch 09/23/17 Allergies Allergy/AdvReac Type Severity Reaction Status Date / Time codeine AdvReac Dizziness Verified 03/14/18 13:16 sucralfate [From Carafate] AdvReac Gastrointestinal Verified 03/14/18 13:16 Upset All systems ED: reviewed and negative except as stated. Constitutional: Denies: fever, chills, weakness, weight change Eyes: Denies: eye pain, eye discharge, vision change ENT ED: Denies: ear pain, throat pain, dental pain, hearing loss, epistaxis, congestion, dysphagia Cardiovascular: Reports: chest pain. Denies: palpitations, dyspnea on exertion , edema, syncope Respiratory: Denies: cough, dyspnea, wheezes, hemoptysis, stridor Gastrointestinal: Denies: abdominal pain, nausea, vomiting, diarrhea, constipation, hematemesis, melena, hematochezia Genitourinary: Denies: urgency, dysuria, frequency, hematuria Musculoskeletal: Denies: back pain, neck pain, arthralgia, myalgia Integumentary: Denies: rash, abrasion, lesions Neurological: Denies: headache, weakness, numbness, paresthesias, confusion, abnormal gait, vertigo Psychiatric: Denies: anxiety, depression, suicidal thoughts, homicidal thoughts , auditory hallucinations, visual hallucinations Endocrine: Denies: fatigue Hematological/Lymphatic: Denies: easy bleeding, easy bruising Allergic/Immunologic: Denies: facial swelling, urticaria Chest Pain PMH - Past Medical History Medical history: Reports: COPD, coronary artery disease, GERD, glaucoma, hyperlipidemia, hypertension, thyroid disease, other Surgical history: Reports: cholecystectomy, orthopedic, other Psychiatric history: Reports: anxiety, depression - Social History Smoking Status: Current every day smoker Alcohol use: Reports: none Drug use: Reports: marijuana Physical Exam - General Limitations: no limitations General appearance: alert, in no apparent distress - Head Head exam: atraumatic, normocephalic, normal inspection - Eye Eye exam: Present: normal appearance, PERRL, EOMI - ENT ENT exam: normal exam, normal oropharynx, mucous membranes moist - Neck Neck exam: Present: normal inspection, full ROM, trachea midline - Chest Chest inspection: Present: normal inspection, symmetric chest wall rise - Respiratory Respiratory exam: Present: normal lung sounds bilaterally - Cardiovascular Cardiovascular exam: Present: regular rate - Abdominal Exam Abdominal exam: Present: soft, Non-Tender. Absent: tenderness, distention, guarding, rebound, rigidity - Extremities Exam Extremities exam: Present: normal inspection, full ROM. Absent: tenderness, pedal edema - Expanded Lower Extremity Exam Neurovascular/Tendon exam: Absent: motor deficit, sensory deficit, tendon deficit Gait: observed and normal - Back Exam Back exam: Present: normal inspection, full ROM. Absent: tenderness - Neurological Exam Neurological exam: Present: alert, oriented X3 - Psychiatric Psychiatric exam: Present: normal affect, normal mood - Skin Skin exam: Present: warm, dry, intact, normal color Course - Reevaluation(s) Reevaluation #1: 82-year-old who comes in complaining of chest pain. Initially gave him aspirin his pain was better. He then says pain was worse. Now pointing to says he has had a previous peptic ulcer but states that that did not feel this way. We gave him a Protonix pain pill repeat his EKG. Time: 13:22 - Consultations Consultation #1: His cussed with , admit. Time: 13:22 Consultation #2: Repeat EKG shows a normal sinus rhythm without acute change. Time: 13:35 Vital Signs Temperature 97.8 F 03/14/18 11:30 Pulse Rate 98 03/14/18 11:30 Respiratory Rate 18 03/14/18 11:30 Blood Pressure 134/75 03/14/18 11:30 O2 Sat by Pulse Oximetry 97 03/14/18 11:30 Temperature 97.8 F 03/14/18 11:38 Pulse Rate 98 03/14/18 11:38 Respiratory Rate 18 03/14/18 11:38 Blood Pressure 134/75 03/14/18 11:38 O2 Sat by Pulse Oximetry 97 03/14/18 11:38 Oxygen Delivery Oxygen Delivery Room Air Chest Pain - Lab Data Result diagrams: 03/14/18 11:46 03/14/18 11:46 Lab Results 03/14/18 03/14/18 03/14/18 Range/Units 11:46 11:46 11:46 WBC 6.7 (4.3-11.1) K/mcL RBC 3.86 L (4.19-5.50) M/mcL Hgb 12.7 L (12.9-16.9) g/dL Hct 37.7 (37.5-50.1) % MCV 97.7 (83.0-100.0) fL MCH 32.9 (28.0-33.3) pg MCHC 33.7 (31.6-35.5) g/dL RDW 13.2 (11.5-14.5) % Plt Count 150 (140-400) K/mcL MPV 11.3 (9.4-12.4) fL Immature Gran % 0.1 (0-4) % Seg Neutrophils % 70.7 % Lymphocytes % 20.7 % Monocytes % 7.3 % Eosinophils % 0.9 % Basophils % 0.3 % Neutrophils # 4.7 (1.6-8.9) K/mcL Lymphocytes # 1.4 (0.6-4.6) K/mcL Monocytes # 0.5 (0.0-1.3) K/mcL Eosinophils # 0.1 (0.0-0.6) K/mcL Basophils # 0.0 (0.0-0.2) K/mcL PT 12.2 H (9.4-12.1) Seconds INR 1.1 APTT 28.1 (26.0-36.0) Seconds Sodium 140 (136-145) mEq/L Potassium 3.6 (3.5-5.1) mEq/L Chloride 108 H (98-107) mEq/L Carbon Dioxide 23 (23-29) mEq/L BUN 10 (8-23) mg/dL Creatinine 0.79 (0.70-1.30) mg/dL Est GFR ( Amer) > 60 (> 60) Est GFR (Non-Af Amer) > 60 (> 60) BUN/Creatinine Ratio 13 (6-26) Glucose 110 H (70-105) mg/dL Calculated Osmolality 290 (280-300) Calcium 9.5 (8.6-10.3) mg/dL Troponin I < 0.03 (< 0.04) ng/mL - Radiology Data Radiology results reviewed: Yes I reviewed the patient's radiology results. Chest X-Ray 03/14/18 11:46 IMPRESSION: No acute cardiopulmonary disease. D/ / 03/14/2018 12:47:57 Jonathon Sheriff MD / [facility] Interpreting Provider: Jonathon Sheriff MD - EKG Data EKG attestation: Yes I reviewed and interpreted this EKG. EKG shows normal: sinus rhythm Rate: normal Rhythm: NSR [place]/QRS: normal Interpretation: no acute changes Heart Score - Score History: Moderately Suspicious EKG: Normal Age: Greater than 65 Risk Factors: 1-2 risk factors Troponin: Less than normal limit HEART Score Total: 4
[2018-03-14 12:02] LABS: Basophils % 0.3 %; Eosinophils # 0.1 K/mcL (0.0-0.6); Eosinophils % 0.9 %; Hematocrit 37.7 % (37.5-50.1); Hemoglobin 12.7 g/dL (12.9-16.9); Immature Granulocytes % 0.1 % (0-4); Lymphocytes # 1.4 K/mcL (0.6-4.6); Lymphocytes % 20.7 %; Mean Corpuscular HGB Conc 33.7 g/dL (31.6-35.5); Mean Corpuscular Hemoglobin 32.9 pg (28.0-33.3); Mean Corpuscular Volume 97.7 fL (83.0-100.0); Mean Platelet Volume 11.3 fL (9.4-12.4); Monocytes # 0.5 K/mcL (0.0-1.3); Monocytes % 7.3 %; Neutrophils # 4.7 K/mcL (1.6-8.9); Platelet Count 150 K/mcL (140-400); Red Blood Count 3.86 M/mcL (4.19-5.50); Red Cell Distribution Width 13.2 % (11.5-14.5); Segmented Neutrophils % 70.7 %
[2018-03-14 12:07] LABS: INR 1.1; Prothrombin Time 12.2 Seconds (9.4-12.1)
[2018-03-14 12:10] LABS: Activated Partial Thrombo Time 28.1 Seconds (26.0-36.0)
[2018-03-14 12:22] LABS: BUN/Creatinine Ratio 13 (6-26); Blood Urea Nitrogen 10 mg/dL (8-23); Calcium 9.5 mg/dL (8.6-10.3); Carbon Dioxide 23 mEq/L (23-29); Chloride 108 mEq/L (98-107); Glucose 110 mg/dL (70-105); Osmolality,Calculated 290 (280-300); Potassium 3.6 mEq/L (3.5-5.1); Sodium 140 mEq/L (136-145); eGFR For African Americans > 60 (> 60); eGFR For Non-African Americans > 60 (> 60)
[2018-03-14 12:24] LABS: Troponin I < 0.03 ng/mL (< 0.04)
[2018-03-14] MEDS ORDERED: Pantoprazole 40 MG VIAL IVP ONE (13:20)
[2018-03-14] MEDS ORDERED: *HR* HYDROcodone/Acet 5/325 mg TABLET PO ONE (13:20)
--- NOTE | 2018-03-14 13:41 | Internal Med History&Physical ---
Date of Encounter: 03/14/18 Time of Encounter: 13:41 Internal Medicine - H&P: HPI Chief complaint: CP History of present illness: Mr. Crain is a 82 year old male with h/o coronary artery disease, hypertension, COPD presented to the ER with chest pain chest pain pressure like and character was no alleviating factor or aggravating factors, the patient has history of cigarette smoking however . he stopped 6 weeks ago, he also has family history of coronary artery disease. The patient was admitted to rule out acute coronary syndrome, his laboratory data indicated normal troponin and EKG revealed no significant ST-T wave changes. Past Med Surg Social Fam HX - Past Medical History Medical history: COPD, coronary artery disease, GERD, glaucoma, hyperlipidemia, hypertension, thyroid disease, other Psychiatric history: anxiety, depression - Past Surgical History Surgical History: cholecystectomy, orthopedic, other - Social History Smoking Status: Current every day smoker Smokeless Tobacco Status: No Alcohol use: none Drug use: marijuana - Family History Mother Adopted: No Family Member Ethnicity: Non- Living Status: Hx Family Cardiac Disorders: Yes Hx Family Respiratory Disorders: No Hx Family Cancer: Yes Hx Family GI Disorders: No Hx Family Endocrine Disorder: No Hx Family Neuromuscular Disorders: No Hx Family Neurologic Disorders: No Hx Family HEENT Disorders: No Hx Family Autoimmune Disorders: No Internal Medicine - H&P: Meds Atorvastatin [Lipitor] 40 mg PO HS 04/26/16 [History] Docusate [Colace] 100 mg PO HS PRN 04/26/16 [History] Esomeprazole Magnesium [Nexium] 40 mg PO DAILY 04/26/16 [History] Megestrol Acetate [Megace] 40 mg PO DAILY 04/26/16 [History] Nitroglycerin [Nitrostat] 0.4 mg SL AD PRN 04/26/16 [History] Potassium Chloride [K-Tab ER] 10 meq PO DAILY 04/26/16 [History] Quetiapine Fumarate [Seroquel] 100 mg PO HS 04/26/16 [History] Sertraline [Zoloft] 100 mg PO DAILY 04/26/16 [History] Zolpidem [Ambien] 10 mg PO HS 04/26/16 [History] Albuterol Sulfate [Albuterol Inhaler] 2 puff IH Q4-6H PRN 07/23/17 [History] Aspirin Enteric Coated [Aspirin EC] 81 mg PO DAILY #30 tablet. 07/24/17 [Rx] Metoprolol [Lopressor] 12.5 mg PO BID #60 tab 07/24/17 [Rx] Gabapentin [Neurontin] 300 mg PO TID #14 capsule 09/14/17 [Rx] Salmeterol Xinafoate [Serevent Diskus] 50 mcg IH BID 09/15/17 [History] Lidocaine [Lidoderm] 1 each TP DAILY #6 adh..patch 09/23/17 [Rx] Travoprost [Travatan Z] 1 drop OP BID 03/14/18 [History] 3 Allergy/AdvReac Type Severity Reaction Status Date / Time codeine AdvReac Dizziness Verified 03/14/18 13:16 sucralfate [From Carafate] AdvReac Gastrointestinal Verified 03/14/18 13:16 Upset All Systems PM: A 10-system review of systems was performed and is negative for pertinent findings except as documented above in the HPI. - Constitutional Constitutional: no chills, no fever(s), no night sweats - Cardiovascular Cardiovascular ROS IM: chest pain, no diaphoresis, no dyspnea, no lightheadedness, no palpitations, no syncope - Respiratory Respiratory: no cough, no dyspnea, no wheezing, no excessive phlegm production - Gastrointestinal Gastrointestinal: no abdominal pain, no diarrhea, no hematemesis, no hematochezia, no melena, no nausea, no vomiting - Neurological Neurological ROS: no confusion, no convulsions, no focal weakness, no numbness, no tingling, no tremor(s) - Constitutional Vitals: Temp Pulse Resp BP Pulse Ox 97.8 F 98 18 134/75 97 03/14/18 11:38 03/14/18 11:38 03/14/18 11:38 03/14/18 11:38 03/14/18 11:38 General appearance: Present: A&O X 3 - Head Head exam: Present: atraumatic, normocephalic - Neck Neck exam general surgery: Present: supple, trachea midline. Absent: lymphadenopathy - Respiratory Respiratory exam: Present: CTAB. Absent: accessory muscle use, rales, rhonchi, wheezes - Cardiovascular Cardiovascular exam: Present: RRR, +S1, +S2. Absent: diastolic murmur, gallop, rubs, systolic murmur - GI/Abdominal GI/Abdominal exam: Present: normal bowel sounds, soft, no peritoneal signs. Absent: distended, tenderness - Extremities Exam Extremities exam: Present: warm, radial pulses palpable and symmetrical. Absent : calf tenderness, cyanotic, pedal edema Internal Med - H&P Results - Labs CBC & Chem 7: 03/15/18 01:52 03/15/18 01:52 Labs: Short CBC 03/14/18 Range/Units 11:46 WBC 6.7 (4.3-11.1) K/mcL Hgb 12.7 L (12.9-16.9) g/dL Hct 37.7 (37.5-50.1) % Plt Count 150 (140-400) K/mcL Neutrophils # 4.7 (1.6-8.9) K/mcL BMP 03/14/18 11:46 Sodium 140 Potassium 3.6 Chloride 108 H Carbon Dioxide 23 BUN 10 Creatinine 0.79 Glucose 110 H Calcium 9.5 Cardiac Enzymes 03/14/18 Range/Units 11:46 Troponin I < 0.03 (< 0.04) ng/mL - Impressions ITS Impressions Chest X-Ray 03/14/18 11:46 IMPRESSION: No acute cardiopulmonary disease. D/ / 03/14/2018 12:47:57 Jonathon Sheriff MD / [facility] Interpreting Provider: Jonathon Sheriff MD - Assessment and plan (1) Chest pain Status: Resolved Assessment and plan: ASSESSMENT: - Chest pain DD *CAD *Muskuloskeletal CP - myofascial strain, costochondritis *GERD *Esophageal spasm *Pneumonia - no infiltrate on CXR CAD Risk ([place] all that apply): HTN Obesity PVD LDL FMH DM HDL Smoking Age Sedentary PLAN: - cardiac enzymes x 2 q 8 hr - EKG now and in AM - ASA - O2 by NC to keep SpO2 greater than 92% - UA - Urine toxic screen - CBCD, BMP in AM - Fasting lipids - Morphine 2 mg IV q 2-4 hr PRN chest pain - Tylenol 650 mg PO q 4-6 hr PRN headache - Home meds (check list) - Heparin 5000 U SQ BID - 2D Echo - Cardiology consult Qualifiers: Chest pain type: other chest pain Qualified Code(s): R07.89 - Other chest pain; R07.8 - Other chest pain (2) HTN (hypertension) Status: Chronic Assessment and plan: Blood pressure on the low side, we will cont BBs with holding parameters . Qualifiers: Hypertension type: essential hypertension Qualified Code(s): I10 - Essential (primary) hypertension (3) COPD (chronic obstructive pulmonary disease) Status: Acute Qualifiers: COPD type: unspecified COPD Qualified Code(s): J44.9 - Chronic obstructive pulmonary disease, unspecified (4) Hyperlipidemia Status: Acute Assessment and plan: We will cont home meds. No evidence of exacerbation. Qualifiers: Hyperlipidemia type: mixed hyperlipidemia Qualified Code(s): E78.2 - Mixed hyperlipidemia (5) Tobacco abuse Status: Chronic (6) DVT prophylaxis Status: Acute Assessment and plan: We will start sc heparin - Time Spent With Patient Total time spent is greater than 50% in coordination of care (as documented) at patient's floor/unit and/or counseling patient:
[2018-03-14] MEDS ORDERED: Nitroglycerin 0.4 MG TAB.SUBL SL PRN ×2 (13:54→14:05)
[2018-03-14] MEDS ORDERED: Naloxone 0.4 MG/ML INJ IVP PRN (13:58)
[2018-03-14] MEDS ORDERED: Ondansetron ODT 4 MG TAB.RAPDIS SL PRN (13:58)
[2018-03-14] MEDS ORDERED: Acetaminophen 325 MG TABLET PO PRN (13:58)
[2018-03-14] MEDS: *HR* HYDROcodone/Acet 5/325 mg TABLET PO PRN (15:33)
[2018-03-14] MEDS: Gabapentin 300 MG CAPSULE PO SCH ×2 (15:33→21:08)
[2018-03-14] MEDS: Albuterol 2.5 MG/3 ML NEBULIZER IH SCH ×2 (19:40→22:22)
[2018-03-14] MEDS: Latanoprost 2.5 ML BOTTLE BOTH EYES SCH (21:41)
[2018-03-15 02:16] LABS: Basophils % 0.4 %; Eosinophils # 0.1 K/mcL (0.0-0.6); Hematocrit 33.3 % (37.5-50.1); Hemoglobin 11.3 g/dL (12.9-16.9); Immature Granulocytes % 0.2 % (0-4); Lymphocytes # 1.8 K/mcL (0.6-4.6); Lymphocytes % 35.6 %; Mean Corpuscular HGB Conc 33.9 g/dL (31.6-35.5); Mean Corpuscular Hemoglobin 32.9 pg (28.0-33.3); Mean Corpuscular Volume 97.1 fL (83.0-100.0); Mean Platelet Volume 11.4 fL (9.4-12.4); Monocytes # 0.5 K/mcL (0.0-1.3); Monocytes % 9.3 %; Neutrophils # 2.7 K/mcL (1.6-8.9); Platelet Count 134 K/mcL (140-400); Red Blood Count 3.43 M/mcL (4.19-5.50); Red Cell Distribution Width 13.2 % (11.5-14.5); Segmented Neutrophils % 52.5 %
[2018-03-15 02:23] LABS: INR 1.2; Prothrombin Time 12.6 Seconds (9.4-12.1)
[2018-03-15 02:26] LABS: Activated Partial Thrombo Time 26.5 Seconds (26.0-36.0)
[2018-03-15 02:35] LABS: BUN/Creatinine Ratio 17 (6-26); Blood Urea Nitrogen 13 mg/dL (8-23); Calcium 9.1 mg/dL (8.6-10.3); Carbon Dioxide 25 mEq/L (23-29); Chloride 110 mEq/L (98-107); Chol/HDL Ratio 3.8 (0-4.9); Cholesterol 141 mg/dL (< 200); Glucose 98 mg/dL (70-105); HDL Cholesterol 37 mg/dL (40-59); LDL Cholesterol,Calculated 87 mg/dL (0-99); Osmolality,Calculated 288 (280-300); Phosphorous 3.6 mg/dL (2.7-4.5); Potassium 3.6 mEq/L (3.5-5.1); Sodium 139 mEq/L (136-145); Triglycerides 85 mg/dL (< 150); eGFR For African Americans > 60 (> 60); eGFR For Non-African Americans > 60 (> 60)
[2018-03-15] MEDS: Albuterol 2.5 MG/3 ML NEBULIZER IH SCH ×2 (03:42→10:15)
[2018-03-15 08:14] LABS: Bilirubin,Urine Negative (Negative); Blood,Urine Negative (Negative); Clarity,Urine Clear (Clear); Color,Urine Yellow (Yellow); Glucose,Urine (UA) Normal (Normal); Ketones,Urine Negative (Negative); Leukocyte Esterase,Urine Negative (Negative); Nitrite,Urine Negative (Negative); Protein,Urine Negative (Neg-Trace); Specific Gravity,Urine 1.028 (1.010-1.025); Urobilinogen,Urine Normal (Normal)
[2018-03-15] MEDS ORDERED: Aspirin Enteric Coated 81 MG Tablet PO SCH (09:00)
[2018-03-15] MEDS: Gabapentin 300 MG CAPSULE PO SCH ×2 (09:29→14:44)
[2018-03-15] MEDS: Latanoprost 2.5 ML BOTTLE BOTH EYES SCH (09:30)
[2018-03-15] MEDS: *HR* HYDROcodone/Acet 5/325 mg TABLET PO PRN (09:38)
[2018-03-15] MEDS ORDERED: Nicotine 21 MG PATCH.TD24 TD SCH (10:00)
--- NOTE | 2018-03-15 11:05 | Discharge Summary ---
<Sukumar Cortes - Last Filed: 03/15/18 13:21> - NOTES TO OUTPATIENT PROVIDER Notes to Outpatient Provider: Patient admitted for chest pain rule out. EKG, troponin, echocardiogram was within normal limits. Date of Encounter: 03/15/18 Time of Encounter: 10:53 - Discharge Diagnosis (1) Chest pain Priority: Primary Status: Resolved Qualifiers: Chest pain type: unspecified Qualified Code(s): R07.9 - Chest pain, unspecified; R07.8 - Other chest pain (2) HTN (hypertension) Priority: Secondary Status: Chronic Qualifiers: Hypertension type: essential hypertension Qualified Code(s): I10 - Essential (primary) hypertension (3) Tobacco abuse Priority: Secondary Status: Chronic (4) DVT prophylaxis Priority: Secondary Status: Acute (5) COPD (chronic obstructive pulmonary disease) Priority: Secondary Status: Acute Qualifiers: COPD type: unspecified COPD Qualified Code(s): J44.9 - Chronic obstructive pulmonary disease, unspecified (6) Hyperlipidemia Priority: Secondary Status: Acute Qualifiers: Hyperlipidemia type: pure hypercholesterolemia Qualified Code(s): E78.00 - Pure hypercholesterolemia, unspecified Hospital course: Mr. Crain is a 82 year old male presented with chief complaint of chest pain that started yesterday and awoke him in the morning. Chest pain was described as epigastric radiating to the left chest. It was not associated with nausea, vomiting, shortness of breath, palpitations, diaphoresis. Patient denies syncope. Chest pain did not worsen with exertion. Chest x-ray was negative for acute changes. EKG was normal sinus rhythm with no ST-T wave changes. Troponin within normal limit. Patient had a stress test and 07/24/2017 which was negative for ischemia or infarct with EF of 67%. Echo done during this admission shows: LVEF 60-65%.Normal LV chamber size and function.Mild asymmetric hypertrophy of the basal septum. 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 Can follow up with GI for this. He takes PPI daily. Patient is tolerating his diet he is able to ambulate independently. Patient was advised to follow-up with PCP. - Time Spent with Patient Total time spent providing and/or coordinating discharge services: - Discharge Medications Home Medications: Atorvastatin [Lipitor] 40 mg PO HS 04/26/16 [History] Docusate [Colace] 100 mg PO HS PRN 04/26/16 [History] Esomeprazole Magnesium [Nexium] 40 mg PO DAILY 04/26/16 [History] Megestrol Acetate [Megace] 40 mg PO DAILY 04/26/16 [History] Nitroglycerin [Nitrostat] 0.4 mg SL AD PRN 04/26/16 [History] Potassium Chloride [K-Tab ER] 10 meq PO DAILY 04/26/16 [History] Quetiapine Fumarate [Seroquel] 100 mg PO HS 04/26/16 [History] Sertraline [Zoloft] 100 mg PO DAILY 04/26/16 [History] Zolpidem [Ambien] 10 mg PO HS 04/26/16 [History] Albuterol Sulfate [Albuterol Inhaler] 2 puff IH Q4-6H PRN 07/23/17 [History] Aspirin Enteric Coated [Aspirin EC] 81 mg PO DAILY #30 tablet. 07/24/17 [Rx] Metoprolol [Lopressor] 12.5 mg PO BID #60 tab 07/24/17 [Rx] Gabapentin [Neurontin] 300 mg PO TID #14 capsule 09/14/17 [Rx] Salmeterol Xinafoate [Serevent Diskus] 50 mcg IH BID 09/15/17 [History] Lidocaine [Lidoderm] 1 each TP DAILY #6 adh..patch 09/23/17 [Rx] Travoprost [Travatan Z] 1 drop OP BID 03/14/18 [History] Allergies/Adverse Reactions: 3 Allergy/AdvReac Type Severity Reaction Status Date / Time codeine AdvReac Dizziness Verified 03/14/18 13:16 sucralfate [From Carafate] AdvReac Gastrointestinal Verified 03/14/18 13:16 Upset Date of admission: 03/14/18 14:15 [facility] care physician: [facility] Consults: 03/14/18 15:32 Consult to Nutrition [CONS] Routine Comment: Consulting Provider: NUTRITION Reason for Dietary Consult: MST Score 03/14/18 17:13 Consult to Pastoral Services [CONS] Routine Comment: Discharging clinician: Sukumar Cortes Anticipated date of discharge: 03/15/18 - Constitutional Vitals: Temp Pulse Resp BP Pulse Ox 98.0 F 71 15 131/89 97 03/15/18 07:29 03/15/18 07:29 03/15/18 07:29 03/15/18 07:29 03/15/18 07:29 General appearance: Present: A&O X 3 - Other Additional findings: General: without distress HEENT: Head atraumatic, normocephalic, EOMI, PERRL, neck nontender to palpation , absent lymphadenopathy, Moist Mucous Membranes, Heart: Regular rate and rhythm with no murmur Lungs: Clear to auscultation bilaterally Abdomen: Soft nontender, nondistended positive bowel sounds Skin: warm and dry, absent rash Extremities: Absent pedal edema, Neuro: Cranial nerves II through XII intact, UE and LE sensation equal bilaterally, UE and LEstrength 5/5, alert oriented 3, Vascular: Pedal and radial pulses 2 out of 4 - Patient Status Disposition: Home, Self-Care Condition: Good Functional capacity at discharge: independent ambulation Overall status at discharge: patient is back to baseline - Discharge Instructions Instructions: Chest Pain (DC), Chronic Obstructive Pulmonary Disease (DC), Chronic Hypertension (DC) Follow Up With: [facility] [Primary Care Provider] - (call for an appointment within 1 week of d/c from hospital.) - Diet and Activity Activity: increase activity as tolerated Diet: advance to your usual diet <Jaime Chin - Last Filed: 03/15/18 16:18> Date of Encounter: 03/15/18 - Discharge Diagnosis (1) Chronic pancreatitis Priority: Primary Status: Chronic Qualifiers: Pancreatitis type: other Qualified Code(s): K86.1 - Other chronic pancreatitis (2) Chest pain Status: Resolved Qualifiers: Chest pain type: other chest pain Qualified Code(s): R07.89 - Other chest pain; R07.8 - Other chest pain (3) HTN (hypertension) Status: Chronic Qualifiers: Hypertension type: essential hypertension Qualified Code(s): I10 - Essential (primary) hypertension (4) Tobacco abuse Status: Chronic (5) DVT prophylaxis Status: Acute (6) COPD (chronic obstructive pulmonary disease) Status: Acute Qualifiers: COPD type: unspecified COPD Qualified Code(s): J44.9 - Chronic obstructive pulmonary disease, unspecified (7) Hyperlipidemia Status: Acute Qualifiers: Hyperlipidemia type: mixed hyperlipidemia Qualified Code(s): E78.2 - Mixed hyperlipidemia Hospital course: Mr. Crain is a 82 year old male - Time Spent with Patient Total time spent providing and/or coordinating discharge services: Date of admission: 03/14/18 14:15 Primary care physician: [facility] Consults: 03/14/18 15:32 Consult to Nutrition [CONS] Routine Comment: Consulting Provider: NUTRITION Reason for Dietary Consult: MST Score 03/14/18 17:13 Consult to Pastoral Services [CONS] Routine Comment: - Constitutional Vitals: Temp Pulse Resp BP Pulse Ox 98.0 F 60 15 116/77 97 03/15/18 11:22 03/15/18 11:22 03/15/18 11:22 03/15/18 11:22 03/15/18 11:22 - Attending Attestation I examined this patient and my medical decision-making was reviewed with the Resident Physician on 03/15/18. I agree with the documented findings, disposition and treatment plan as described except to the extent set forth below. Mr Crain has been in observation for chest pain. He currently is afebrile and troponins and echo are negative. He had a stress test in the last 8 months which was negative. He has a prior hx of chronic pancreatitis and has had celiac blocks - none recently. He is ready for discharge and outpatient follow up. Exam alert comfortable Mucus membranes dry Heart reg No wheeze Plan D/C home today Follow up with PCP and Dr. Mancuso (regarding possible need for celiac block).
[2018-03-15 11:24] VITALS: BP 116/77
[2018-03-15] MEDS ORDERED: GI Cocktail 40 ML EACH PO ONE (14:07)
[2018-03-15] MEDS ORDERED: *HR* Heparin 5,000 UNIT/ML VIAL SQ SCH (18:00)
--- NOTE | 2018-03-16 14:24 | Electrocardiograph Report ---
[address] [address] Test Date: 2018-03-14 Pat Name: Jason Crain Department: 102 Room: 2NE20 Gender: M Tariff Compiling Clerk: : 1935 Requested By: Yogi Marshall Order Number: [id number] Reading MD: Loida Veloz Measurements Intervals [place] Rate: 83 P: 44 OR: 166 QRS: 63 QRSD: 93 T: 66 QT: 380 QTc: 420 Interpretive Statements SINUS RHYTHM Electronically Signed On 03-16-2018 14:22:51 EDT by Loida Veloz
--- NOTE | 2018-03-16 14:25 | Electrocardiograph Report ---
[address] [address] Test Date: 2018-03-14 Pat Name: Jason Crain Department: 103 Room: 2NE20 Gender: M Doubler Helper: : 1935 Requested By: Yogi Marshall Order Number: [id number] Reading MD: Loida Veloz Measurements Intervals [place] Rate: 63 P: 47 [place]: 178 QRS: 54 QRSD: 98 T: 60 QT: 424 QTc: 432 Interpretive Statements SINUS RHYTHM NONSPECIFIC ST ABNORMALITIES Electronically Signed On 03-16-2018 14:24:20 EDT by Loida Veloz
--- NOTE | 2018-03-16 14:39 | Electrocardiograph Report ---
[place] [address] Test Date: 2018-03-15 Pat Name: Jason Crain Department: 111 Room: 2NE20 Gender: M Search Advertising Strategist: [facility] : 1935 Requested By: Candy Issa Order Number: [id number] Reading MD: Loida Veloz Measurements Intervals [place] Rate: 69 P: 119 [place]: 167 QRS: 52 QRSD: 94 T: 56 QT: 408 QTc: 428 Interpretive Statements SINUS RHYTHM Electronically Signed On 03-16-2018 14:37:51 EDT by Loida Veloz
== END 2018-03-15 15:21 | disposition home or self-care (01) ==
LOC: EMEROO 11:29 → 2NENU 11:29 → SUATTDRO 14:15 → 2NENU 15:35
PROVIDERS: ADMIT Internal Medicine Nephrology; ATTEND Internal Medicine

== ENCOUNTER 2018-04-14 14:02 | Observation (INO) ==
[2018-04-14 14:33] LABS: Basophils % 0.2 %; Eosinophils # 0.1 K/mcL (0.0-0.6); Eosinophils % 1.9 %; Hematocrit 36.9 % (37.5-50.1); Hemoglobin 12.5 g/dL (12.9-16.9); Immature Granulocytes % 0.2 % (0-4); Lymphocytes # 1.8 K/mcL (0.6-4.6); Lymphocytes % 30.9 %; Mean Corpuscular HGB Conc 33.9 g/dL (31.6-35.5); Mean Corpuscular Hemoglobin 33.7 pg (28.0-33.3); Mean Corpuscular Volume 99.5 fL (83.0-100.0); Mean Platelet Volume 10.9 fL (9.4-12.4); Monocytes # 0.6 K/mcL (0.0-1.3); Monocytes % 10.2 %; Neutrophils # 3.2 K/mcL (1.6-8.9); Platelet Count 155 K/mcL (140-400); Red Blood Count 3.71 M/mcL (4.19-5.50); Red Cell Distribution Width 13.2 % (11.5-14.5); Segmented Neutrophils % 56.6 %
[2018-04-14 14:50] LABS: Troponin I < 0.03 ng/mL (< 0.04)
[2018-04-14 14:58] LABS: Alanine Aminotransferase 11 Units/L (7-52); Albumin 4.4 g/dL (3.5-5.7); Albumin/Globulin Ratio 1.8 (1.1-2.2); Alkaline Phosphatase 86 Units/L (34-104); Aspartate Amino Transferase 19 Units/L (13-39); BUN/Creatinine Ratio 13 (6-26); Bilirubin,Total 0.5 mg/dL (0.3-1.0); Blood Urea Nitrogen 10 mg/dL (8-23); Calcium 9.3 mg/dL (8.6-10.3); Carbon Dioxide 26 mEq/L (23-29); Chloride 109 mEq/L (98-107); Globulin 2.4 g/dL (2.4-3.5); Glucose 100 mg/dL (70-105); Osmolality,Calculated 295 (280-300); Potassium 3.6 mEq/L (3.5-5.1); Sodium 143 mEq/L (136-145); Total Protein 6.8 g/dL (6.4-8.9); eGFR For African Americans > 60 (> 60); eGFR For Non-African Americans > 60 (> 60)
[2018-04-14] MEDS ORDERED: Aspirin 81 MG TAB.CHEW PO ONE (16:03)
[2018-04-14] MEDS ORDERED: Nitroglycerin 0.4 MG TAB.SUBL SL ONE (16:03)
[2018-04-14 16:18] LABS: INR 1.1; Prothrombin Time 11.9 Seconds (9.4-12.1)
[2018-04-14 16:20] LABS: Activated Partial Thrombo Time 31.7 Seconds (26.0-36.0)
--- NOTE | 2018-04-14 16:48 | Emergency Department Note ---
Disposition Clinical Impression: Chest pain Qualifiers: Chest pain type: unspecified Qualified Code(s): R07.9 - Chest pain, unspecified Disposition: Admitted As Inpatient Condition: Good Referrals: Lilly Valdez CNP [Primary Care Provider] - Forms: ED Satisfaction Letter Time of Disposition: 16:52 Chest Pain HPI - General Chief Complaint: ED Chest Pain Stated Complaint: chest pain Time Seen by Provider: 04/14/18 15:34 Source: patient Limitations: no limitations Vital Signs Reviewed: Yes Nursing Notes Reviewed: Yes - History of Present Illness HPI Narrative: This is an 82 year-old male with history of HTN and HLD who presents with dull, left-sided chest pain, radiating to the left upper extremity, which has been chronic for a couple of months but worsened greatly over the past 2 days. The pain is worsened by exertion and has been associated at times with diaphoresis and dyspnea. Patient denies any recent fever, cough, leg pain or swelling. He denies any personal history of heart disease, DVT, or PE. He says he had a cath a few years ago, no stents. Pt complaint: chest pain Onset (ago): day(s) (2) Duration: constant Pain Location: substernal Severity: moderate Severity scale (1-10): 9 Quality: dull Pain Radiation: LUE Improves with: nothing Worsens with: exertion Associated symptoms: Reports: diaphoresis, dyspnea, syncope (or near-syncope yesterday; denies secondary injury). Denies: nausea, vomiting, palpitations, fever, cough, leg swelling Treatments prior to arrival chest pain: none - Related Data Home Medications Medication Instructions Recorded Confirmed Atorvastatin [Lipitor] 40 mg PO HS 04/26/16 04/14/18 Docusate [Colace] 100 mg PO HS PRN 04/26/16 04/14/18 Esomeprazole Magnesium [Nexium] 40 mg PO DAILY 04/26/16 04/14/18 Megestrol Acetate [Megace] 40 mg PO DAILY 04/26/16 04/14/18 Nitroglycerin [Nitrostat] 0.4 mg SL AD PRN 04/26/16 04/14/18 Quetiapine Fumarate [Seroquel] 100 mg PO HS 04/26/16 04/14/18 Sertraline [Zoloft] 50 mg PO DAILY 04/26/16 04/14/18 Zolpidem [Ambien] 10 mg PO HS 04/26/16 04/14/18 Albuterol Sulfate [Albuterol 2 puff IH Q4-6H PRN 07/23/17 04/14/18 Inhaler] Travoprost [Travatan Z] 1 drop OP BID 03/14/18 04/14/18 Methadone 5 mg PO Q8HR 04/14/18 04/14/18 Oxycodone HCl/Acetaminophen 2 tab PO TID PRN 04/14/18 04/14/18 [Percocet 5-325 mg Tablet] Potassium Chloride Elixir 20 meq PO DAILY 04/14/18 04/14/18 [Potassium Chloride] Promethazine [Phenergan] 12.5 mg PO Q8HR 04/14/18 04/14/18 hydroCHLOROthiazide 12.5 mg PO DAILY 04/14/18 04/14/18 [Hydrochlorothiazide] Previous Rx's Medication Instructions Recorded Aspirin Enteric Coated [Aspirin EC] 81 mg PO DAILY #30 tablet. 07/24/17 Metoprolol [Lopressor] 12.5 mg PO BID #60 tab 07/24/17 Allergies Allergy/AdvReac Type Severity Reaction Status Date / Time codeine AdvReac Dizziness Verified 04/14/18 14:06 sucralfate [From Carafate] AdvReac Gastrointestinal Verified 04/14/18 14:06 Upset All systems ED: reviewed and negative except as stated. Constitutional: Denies: fever Cardiovascular: Reports: as per HPI, chest pain, dyspnea on exertion, syncope (? ). Denies: palpitations, edema Respiratory: Reports: dyspnea. Denies: cough Gastrointestinal: Denies: abdominal pain, vomiting Musculoskeletal: Denies: back pain Neurological: Denies: headache, weakness, numbness Chest Pain PMH - Past Medical History Medical history: Reports: COPD, coronary artery disease, GERD, glaucoma, hyperlipidemia, hypertension, thyroid disease Surgical history: Reports: cholecystectomy, orthopedic, other Psychiatric history: Reports: anxiety, depression - Social History Smoking Status: Former smoker Alcohol use: Reports: none Drug use: Reports: none Physical Exam - General Limitations: no limitations General appearance: alert, in no apparent distress - Head Head exam: atraumatic, normocephalic - Eye Eye exam: Present: normal appearance - ENT ENT exam: normal exam - Neck Neck exam: Present: normal inspection - Respiratory Respiratory exam: Present: normal lung sounds bilaterally. Absent: respiratory distress, wheezes - Cardiovascular Cardiovascular exam: Present: regular rate, normal rhythm, normal heart sounds - Abdominal Exam Abdominal exam: Present: soft, Non-Tender. Absent: distention - Extremities Exam Extremities exam: Present: normal inspection. Absent: pedal edema, calf tenderness - Neurological Exam Neurological exam: Present: alert, oriented X3. Absent: motor sensory deficit - Psychiatric Psychiatric exam: Present: normal affect, normal mood - Skin Skin exam: Present: warm, dry, intact Course - Reevaluation(s) Reevaluation #1: On recheck, patient reports that he's feeling better with treatment. Discussed test results and plan with patient. He is in agreement with admission. Time: 16:51 - Consultations Consultation #1: [place] hospitalist. Time: 16:52 Consultation #2: Reviewed case with Dr. Tripp, and patient accepted for admission. Time: 18:25 Vital Signs Temperature 98.2 F 04/14/18 14:09 Pulse Rate 93 04/14/18 14:09 Respiratory Rate 20 04/14/18 14:09 Blood Pressure 139/89 04/14/18 14:09 O2 Sat by Pulse Oximetry 97 04/14/18 14:09 Temperature 98.2 F 04/14/18 15:34 Pulse Rate 51 04/14/18 16:45 Respiratory Rate 18 04/14/18 16:45 Blood Pressure 119/81 04/14/18 16:45 O2 Sat by Pulse Oximetry 98 04/14/18 16:45 Oxygen Delivery Oxygen Delivery Room Air Chest Pain - Lab Data Lab results reviewed: Yes I reviewed the patient's lab results. Result diagrams: 04/14/18 14:15 04/14/18 14:15 Lab Results 04/14/18 04/14/18 04/14/18 Range/Units 14:15 14:15 14:15 WBC 5.7 (4.3-11.1) K/mcL RBC 3.71 L (4.19-5.50) M/mcL Hgb 12.5 L (12.9-16.9) g/dL Hct 36.9 L (37.5-50.1) % MCV 99.5 (83.0-100.0) fL MCH 33.7 H (28.0-33.3) pg MCHC 33.9 (31.6-35.5) g/dL RDW 13.2 (11.5-14.5) % Plt Count 155 (140-400) K/mcL MPV 10.9 (9.4-12.4) fL Immature Gran % 0.2 (0-4) % Seg Neutrophils % 56.6 % Lymphocytes % 30.9 % Monocytes % 10.2 % Eosinophils % 1.9 % Basophils % 0.2 % Neutrophils # 3.2 (1.6-8.9) K/mcL Lymphocytes # 1.8 (0.6-4.6) K/mcL Monocytes # 0.6 (0.0-1.3) K/mcL Eosinophils # 0.1 (0.0-0.6) K/mcL Basophils # 0.0 (0.0-0.2) K/mcL PT 11.9 (9.4-12.1) Seconds INR 1.1 APTT 31.7 (26.0-36.0) Seconds Sodium 143 (136-145) mEq/L Potassium 3.6 (3.5-5.1) mEq/L Chloride 109 H (98-107) mEq/L Carbon Dioxide 26 (23-29) mEq/L BUN 10 (8-23) mg/dL Creatinine 0.75 (0.70-1.30) mg/dL Est GFR ( Amer) > 60 (> 60) Est GFR (Non-Af Amer) > 60 (> 60) BUN/Creatinine Ratio 13 (6-26) Glucose 100 (70-105) mg/dL Calculated Osmolality 295 (280-300) Calcium 9.3 (8.6-10.3) mg/dL Total Bilirubin 0.5 (0.3-1.0) mg/dL AST 19 (13-39) Units/L ALT 11 (7-52) Units/L Alkaline Phosphatase 86 (34-104) Units/L Troponin I < 0.03 (< 0.04) ng/mL Serum Total Protein 6.8 (6.4-8.9) g/dL Albumin 4.4 (3.5-5.7) g/dL Globulin 2.4 (2.4-3.5) g/dL Albumin/Globulin Ratio 1.8 (1.1-2.2) - Radiology Data Radiology results reviewed: Yes I reviewed the patient's radiology results. XR/XR chest 2V IMPRESSION: No acute process. - EKG Data EKG attestation: Yes I reviewed and interpreted this EKG. EKG shows normal: sinus rhythm, axis, intervals, QRS complexes When compared to previous EKG there are: no significant changes Interpretation: nonspecific ST-T wave changes
[2018-04-14] MEDS ORDERED: Acetaminophen 325 MG TABLET PO PRN (21:09)
[2018-04-14] MEDS ORDERED: Naloxone 0.4 MG/ML INJ IVP PRN (21:09)
[2018-04-14] MEDS ORDERED: *HR* OxyCODONE/APAP 5/325 TABLET PO PRN (21:12)
[2018-04-14] MEDS ORDERED: Nitroglycerin 0.4 MG TAB.SUBL SL PRN (21:12)
--- NOTE | 2018-04-14 22:36 | Internal Med History&Physical ---
Date of Encounter: 04/14/18 Time of Encounter: 19:00 Internal Medicine - H&P: HPI Chief complaint: Chest pain Admitted From: Home Plans for Post Hospital Care: Home History of present illness: Mr. Crain is a 82 year old male presented to ER for chest pain. Past medical history is significant for GERD. Patient said he has intermittent chest pain since January. Patient was admitted for chest pain in February. Patient was discharged from hospital because he has negative troponin and unmarkable echo. Patient said the chest pain is becoming more frequent and since 2 days ago he has constant chest pain. Patient said the pain located on left side chest, radiated to left arm, pressure-like, 6 out of 10. Patient said sublingual nitroglycerin helps with the pain. Patient has shortness of breath, nausea but no vomiting, and diaphoresis. Patient denies fever or cough. Patient was admitted for ACS rule out. I have discussed CODE STATUS with this patient. He clearly told me he does not want CPR or intubation. DNR DNI has placed. Past Med Surg Social Fam HX - Past Medical History Medical history: COPD, coronary artery disease, GERD, glaucoma, hyperlipidemia, hypertension, thyroid disease Additional medical history: gastropatesis, vitamin d deficiency, anorexia, BPH, neuritis Psychiatric history: anxiety, depression - Past Surgical History Surgical History: cholecystectomy, orthopedic, other Additional surgical history: Back Surgery - Social History Smoking Status: Former smoker Smokeless Tobacco Status: No Alcohol use: none Drug use: none - Family History Mother Adopted: No Family Member Ethnicity: Non- Living Status: Hx Family Cardiac Disorders: Yes Hx Family Respiratory Disorders: No Hx Family Cancer: Yes Hx Family GI Disorders: No Hx Family Endocrine Disorder: No Hx Family Neuromuscular Disorders: No Hx Family Neurologic Disorders: No Hx Family HEENT Disorders: No Hx Family Autoimmune Disorders: No Internal Medicine - H&P: Meds Atorvastatin [Lipitor] 40 mg PO HS 04/26/16 [History] Docusate [Colace] 100 mg PO HS PRN 04/26/16 [History] Esomeprazole Magnesium [Nexium] 40 mg PO DAILY 04/26/16 [History] Megestrol Acetate [Megace] 40 mg PO DAILY 04/26/16 [History] Nitroglycerin [Nitrostat] 0.4 mg SL AD PRN 04/26/16 [History] Quetiapine Fumarate [Seroquel] 100 mg PO HS 04/26/16 [History] Sertraline [Zoloft] 50 mg PO DAILY 04/26/16 [History] Zolpidem [Ambien] 10 mg PO HS 04/26/16 [History] Albuterol Sulfate [Albuterol Inhaler] 2 puff IH Q4-6H PRN 07/23/17 [History] Aspirin Enteric Coated [Aspirin EC] 81 mg PO DAILY #30 tablet. 07/24/17 [Rx] Metoprolol [Lopressor] 12.5 mg PO BID #60 tab 07/24/17 [Rx] Travoprost [Travatan Z] 1 drop OP BID 03/14/18 [History] Methadone 5 mg PO Q8HR 04/14/18 [History] Oxycodone HCl/Acetaminophen [Percocet 5-325 mg Tablet] 2 tab PO TID PRN [History] Potassium Chloride Elixir [Potassium Chloride] 20 meq PO DAILY 04/14/18 [History ] Promethazine [Phenergan] 12.5 mg PO Q8HR 04/14/18 [History] hydroCHLOROthiazide [Hydrochlorothiazide] 12.5 mg PO DAILY 04/14/18 [History] 3 Allergy/AdvReac Type Severity Reaction Status Date / Time codeine AdvReac Dizziness Verified 04/14/18 14:06 sucralfate [From Carafate] AdvReac Gastrointestinal Verified 04/14/18 14:06 Upset All Systems PM: A 10-system review of systems was performed and is negative for pertinent findings except as documented above in the HPI. - Constitutional Vitals: Temp Pulse Resp BP Pulse Ox 98.2 F 48 20 125/82 98 04/14/18 15:34 04/14/18 19:30 04/14/18 19:30 04/14/18 19:30 04/14/18 19:30 General appearance: Present: A&O X 3, no acute distress, answers questions appropriately - Head Head exam: Present: atraumatic, normocephalic - Eye Eye exam: Present: PERRL, conjuntiva pink, sclera anicteric Pupils: Present: PERRL - Neck Neck exam general surgery: Present: supple, trachea midline. Absent: lymphadenopathy - Respiratory Respiratory exam: Present: chest wall tenderness (Mild chest wall tenderness on left side chest), CTAB. Absent: accessory muscle use, rales, rhonchi, wheezes - Cardiovascular Cardiovascular exam: Present: RRR, +S1, +S2. Absent: diastolic murmur, gallop, rubs, systolic murmur - GI/Abdominal GI/Abdominal exam: Present: normal bowel sounds, soft, no peritoneal signs. Absent: distended, tenderness - Extremities Exam Extremities exam: Present: warm, radial pulses palpable and symmetrical. Absent : calf tenderness, cyanotic, pedal edema - Neurological Exam Neurological exam: Present: CN II-XII intact, oriented X3, no focal deficits. Absent: pronater drift, facial droop, speech deficit - Skin Skin exam: Present: dry, intact Internal Med - H&P Results - Labs CBC & Chem 7: 04/14/18 14:15 04/14/18 14:15 - EKG Data -: EKG Interpreted by Myself EKG shows normal: sinus rhythm Rate: normal - Assessment and plan (1) Chest pain Current Visit: Yes Status: Acute Assessment and plan: Patient has history of chest pain. Response to nitroglycerin. Need to rule out ACS. However, patient has chest wall tenderness, also consider skeletal muscular pain. Patient had some cardiac workup on last admission. - Place patient on continuous cardiac monitoring. - Track 3 sets of troponin - We will hold stress test because patient still have chest pains right now - We will consult cardiology because patient has worsening chest pain, which is respond to nitroglycerin. - Continue nitroglycerin sublingual and pain medication for pain. Qualifiers: Chest pain type: unspecified Qualified Code(s): R07.9 - Chest pain, unspecified (2) COPD (chronic obstructive pulmonary disease) Current Visit: No Status: Acute Assessment and plan: Continue home medications. Stable now. Qualifiers: COPD type: unspecified COPD Qualified Code(s): J44.9 - Chronic obstructive pulmonary disease, unspecified (3) DVT prophylaxis Current Visit: No Status: Acute Assessment and plan: Heparin subcutaneously (4) Tobacco abuse Current Visit: No Status: Chronic Assessment and plan: Patient is on nicotine patch at home. We will continue. - Time Spent With Patient Total time spent is greater than 50% in coordination of care (as documented) at patient's floor/unit and/or counseling patient: 40 minutes Greater than 35 minutes
[2018-04-15] MEDS: *HR* Methadone 5 MG TABLET PO SCH ×4 (00:08→23:55)
[2018-04-15 06:33] LABS: Basophils % 0.2 %; Eosinophils # 0.1 K/mcL (0.0-0.6); Hematocrit 34.9 % (37.5-50.1); Hemoglobin 11.7 g/dL (12.9-16.9); Immature Granulocytes % 0.2 % (0-4); Lymphocytes # 1.3 K/mcL (0.6-4.6); Mean Corpuscular HGB Conc 33.5 g/dL (31.6-35.5); Mean Corpuscular Hemoglobin 33.9 pg (28.0-33.3); Mean Corpuscular Volume 101.2 fL (83.0-100.0); Mean Platelet Volume 11.4 fL (9.4-12.4); Monocytes # 0.5 K/mcL (0.0-1.3); Monocytes % 11.9 %; Neutrophils # 2.1 K/mcL (1.6-8.9); Platelet Count 133 K/mcL (140-400); Red Blood Count 3.45 M/mcL (4.19-5.50); Red Cell Distribution Width 13.3 % (11.5-14.5); Segmented Neutrophils % 52.7 %
[2018-04-15 06:50] LABS: BUN/Creatinine Ratio 21 (6-26); Blood Urea Nitrogen 13 mg/dL (8-23); Calcium 9.2 mg/dL (8.6-10.3); Carbon Dioxide 28 mEq/L (23-29); Chloride 109 mEq/L (98-107); Chol/HDL Ratio 3.6 (0-4.9); Cholesterol 151 mg/dL (< 200); Glucose 90 mg/dL (70-105); HDL Cholesterol 42 mg/dL (40-59); LDL Cholesterol,Calculated 93 mg/dL (0-99); Magnesium 1.9 mg/dL (1.6-2.6); Osmolality,Calculated 296 (280-300); Potassium 3.6 mEq/L (3.5-5.1); Sodium 143 mEq/L (136-145); Triglycerides 81 mg/dL (< 150); Troponin I < 0.03 ng/mL (< 0.04); eGFR For African Americans > 60 (> 60); eGFR For Non-African Americans > 60 (> 60)
--- NOTE | 2018-04-15 10:10 | Cardiology Consult Note ---
<Jonathon Landis - Last Filed: 04/15/18 13:26> Date of Encounter: 04/15/18 Time of Encounter: 09:34 Assessment and Plan (1) Chest pain Current Visit: Yes Status: Acute - Atypical chest pain. (Dull with radiation to left arm, persistent for 2 months , not relieved by NTG, worse with cough) - Troponin negative x3 and EKG shows no acute ischemic changes. - Suspect that there may be a MSK component given starting around the time he had the flu - Also may have some GI component give history of Colvin's esophagus - Recent cardiac workup of Echo in 03/15/18 showing EF of 60-65%, mild diastolic dysfunction. - Stress test on 07/13/17 was negative for ischemia. - Outpatient records of [facility] in 2013 show non obstructive CAD with 20-40% stenosis - Patient is currently DNR-DNI however would like intervention if it will help his pain Plan - Will obtain stress pharm nuclear test today. NPO - Suspect more likely MSK pain but will rule out coronary ischemia. - Consider GI cocktail however patient reports allergy to sucralfate of GI upset. - Continue ASA, statin, metoprolol, NTG PRN Will discuss further plan with Dr. Veloz. 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 Continue home meds. Qualifiers: Hypertension type: essential hypertension Qualified Code(s): I10 - Essential (primary) hypertension (4) History of abdominal aortic aneurysm Current Visit: Yes Status: Chronic - As seen on CT scan in August 2017. 4cm at that time. (5) Hyperlipidemia Current Visit: Yes Status: Acute continue statin Qualifiers: Hyperlipidemia type: mixed hyperlipidemia Qualified Code(s): E78.2 - Mixed hyperlipidemia Discussion w patient/family: The assessment and plan as outlined above was discussed with the patient and/or family members who expressed understanding and agreement. All questions were answered. Thank you for involving us in the care of your patient. Please call with any questions. History of Present Illness Consult date: 04/15/18 Requesting physician: Harjinder Guthrie Consult reason: ACS rule out Chief complaint: chest pain History of present illness: Mr. Crain is a 82 year old male with a PMhx of non obstructive CAD, Colvin esophagus, glaucoma, HLD, HTN, ascending aortic aneurysm presents to ED with a complaint of Chest pain. He states that the chest pain started in January and has been relatively constant since then however it has been worsening the past 2 days. He describes the pain as dull in nature and located diffusely in office chest with radiation to his left arm. He states that pain is exacerbated with cough, deep breaths, possibly exertion. NTG did not relieve his pain. He has seen his primary care doctor for this in the past at the time it was thought to be due to nicotine patches. He does admit to some associated shortness of breath, nausea, vomiting, chills. He thinks that this may be associated with having influenza twice this past winter. Previous cardiac workup included echocardiogram on 03/15/18 showed an ejection fraction of 60-65% with mild diastolic dysfunction and no valvular abnormalities. He did have a stress speculum exam on 07/13/17 which was negative for ischemia at that time. Left heart catheterization 2013 shows nonobstructive CAD with 20-40% occlusion. So far during workup while admitted troponins were cycled and negative 3 and EKG showed sinus rhythm with no ischemic changes seen since previous. CXR showed no acute abnormality. Past Med Surg Social Fam HX - Past Medical History Medical history: COPD, coronary artery disease, GERD, glaucoma, hyperlipidemia, hypertension, thyroid disease Additional medical history: gastropatesis, vitamin d deficiency, anorexia, BPH, neuritis Psychiatric history: anxiety, depression - Past Surgical History Surgical History: cholecystectomy, orthopedic, other Additional surgical history: Back Surgery - Social History Smoking Status: Former smoker Smokeless Tobacco Status: No Alcohol use: none Drug use: none - Family History Mother Adopted: No Family Member Ethnicity: Non- Living Status: Hx Family Cardiac Disorders: Yes Hx Family Respiratory Disorders: No Hx Family Cancer: Yes Hx Family GI Disorders: No Hx Family Endocrine Disorder: No Hx Family Neuromuscular Disorders: No Hx Family Neurologic Disorders: No Hx Family HEENT Disorders: No Hx Family Autoimmune Disorders: No Medications and Allergies Atorvastatin [Lipitor] 40 mg PO HS 04/26/16 [History] Docusate [Colace] 100 mg PO HS PRN 04/26/16 [History] Esomeprazole Magnesium [Nexium] 40 mg PO DAILY 04/26/16 [History] Megestrol Acetate [Megace] 40 mg PO DAILY 04/26/16 [History] Nitroglycerin [Nitrostat] 0.4 mg SL AD PRN 04/26/16 [History] Quetiapine Fumarate [Seroquel] 100 mg PO HS 04/26/16 [History] Sertraline [Zoloft] 50 mg PO DAILY 04/26/16 [History] Zolpidem [Ambien] 10 mg PO HS 04/26/16 [History] Albuterol Sulfate [Albuterol Inhaler] 2 puff IH Q4-6H PRN 07/23/17 [History] Aspirin Enteric Coated [Aspirin EC] 81 mg PO DAILY #30 tablet. 07/24/17 [Rx] Metoprolol [Lopressor] 12.5 mg PO BID #60 tab 07/24/17 [Rx] Travoprost [Travatan Z] 1 drop OP BID 03/14/18 [History] Methadone 5 mg PO Q8HR 04/14/18 [History] Oxycodone HCl/Acetaminophen [Percocet 5-325 mg Tablet] 2 tab PO TID PRN [History] Potassium Chloride Elixir [Potassium Chloride] 20 meq PO DAILY 04/14/18 [History ] Promethazine [Phenergan] 12.5 mg PO Q8HR 04/14/18 [History] hydroCHLOROthiazide [Hydrochlorothiazide] 12.5 mg PO DAILY 04/14/18 [History] 3 Allergy/AdvReac Type Severity Reaction Status Date / Time codeine AdvReac Dizziness Verified 04/14/18 14:06 sucralfate [From Carafate] AdvReac Gastrointestinal Verified 04/14/18 14:06 Upset All Systems Review: The remainder of the systems were reviewed and are negative - Constitutional Constitutional: chills, night sweats, no fever(s) - Cardiovascular Cardiovascular: chest pain at rest, chest pain with exertion, diaphoresis, dyspnea at rest, dyspnea on exertion, no claudication, no leg edema, no lightheadedness, no orthopnea - Respiratory Respiratory: cough, dyspnea - Gastrointestinal Gastrointestinal: nausea Physical Examination Vital Signs, Last 4 Hours Temp Pulse Resp BP Pulse Ox 04/15/18 07:53 98.3 F 58 17 154/83 95 General: Conversant, No Apparent Distress HEENT: Atraumatic, Normocephaly, Mucus Membranes Moist Neck: No JVD, Normal carotid pulses Cardiac: Reg Rate and Rhythm, Normal S1 and S2, No Murmur Lungs: Normal Breath Sounds, No Wheeze, Rales, Rhonchi Neuro: Alert and responsive, No focal deficits noted Abdomen: Soft, Non-Tender Skin: No rashes noted on visualized skin Musculoskeletal: Other (chest pain reporducible on arm movement as well as palpation) Extremities: No Clubbing, No Cyanosis, No Edema, Normal Pulses Results 04/15/18 05:14 04/15/18 05:14 Lab Results 04/14/18 04/15/18 04/15/18 22:02 05:14 05:14 WBC 4.0 L Hgb 11.7 L Hct 34.9 L Plt Count 133 L Sodium 143 Potassium 3.6 Chloride 109 H Carbon Dioxide 28 BUN 13 Creatinine 0.61 L Glucose 90 Calcium 9.2 Magnesium 1.9 Troponin I < 0.03 < 0.03 Consult Discharge Plan - Plan Referrals: Lilly Valdez, FIRE DEPARTMENT MARINE ENGINEER [Primary Care Provider] - <Loida Veloz - Last Filed: 04/15/18 14:10> Date of Encounter: 04/15/18 - Attending Attestation I examined this patient and my medical decision-making was reviewed with the Resident Physician. I agree with the documented findings, disposition and treatment plan. Mr. Crain presents with 2 months of persistent left sided chest pain. States that he's had a few bouts of URI recently. He thought his discomfort was related when it developed in January. However, it has never completely resolved. More recently, the chest pressure worsened over the past few days. On exam, this is mildly reproducible. His troponins have been negative and there are no new ischemic ECG findings. I discussed these findings with the patient. His symptoms are quite atypical and workup has been negative. However, he does have risk factors for CAD and has known mild CAD by [facility] in 2013. We discussed consideration for stress testing for an ischemic evaluation. The patient would like to proceed. He understands that if a LHC would be recommended he would revoke his code status temporarily. Continue asa, statin, BB. Assessment and Plan Discussion w patient/family: The assessment and plan as outlined above was discussed with the patient and/or family members who expressed understanding and agreement. All questions were answered. Thank you for involving us in the care of your patient. Please call with any questions. History of Present Illness History of present illness: Mr. Crain is a 82 year old male All Systems Review: The remainder of the systems were reviewed and are negative Physical Examination Vital Signs, Last 4 Hours Temp Pulse Resp BP Pulse Ox 04/15/18 11:30 97.9 F 76 17 134/78 95 Results 04/15/18 05:14 04/15/18 05:14 Lab Results 04/14/18 04/15/18 04/15/18 22:02 05:14 05:14 WBC 4.0 L Hgb 11.7 L Hct 34.9 L Plt Count 133 L Sodium 143 Potassium 3.6 Chloride 109 H Carbon Dioxide 28 BUN 13 Creatinine 0.61 L Glucose 90 Calcium 9.2 Magnesium 1.9 Troponin I < 0.03 < 0.03
[2018-04-15] MEDS ORDERED: GI Cocktail 40 ML EACH PO ONE (11:06)
[2018-04-15] MEDS: Potassium Chloride Elixir 20 MEQ/15 ML UDC PO SCH (11:40)
[2018-04-15] MEDS: hydroCHLOROthiazide 25 MG TABLET PO SCH (11:42)
[2018-04-15] MEDS: Aspirin Enteric Coated 81 MG Tablet PO SCH (11:43)
[2018-04-15] MEDS: Nicotine 21 MG PATCH.TD24 TD SCH (11:49)
[2018-04-15] MEDS: Latanoprost 2.5 ML BOTTLE BOTH EYES SCH ×3 (12:48→19:34)
--- NOTE | 2018-04-15 14:53 | Electrocardiograph Report ---
[facility] Test Date: 2018-04-14 Pat Name: Jason Crain Department: 104 Room: 3B55 Gender: M Housing Case Manager: : [id number] Requested By: Kandy Shen Order Number: [id number] Reading MD: Marlon Mcknight Measurements Intervals [place] Rate: 88 P: 48 TN: 159 QRS: 63 QRSD: 96 T: 76 QT: 372 QTc: 418 Interpretive Statements SINUS RHYTHM NONSPECIFIC T-WAVE ABNORMALITY Electronically Signed On 04-15-2018 14:51:58 EDT by Marlon Mcknight
--- NOTE | 2018-04-15 17:18 | Internal Med Progress Note ---
Date of Encounter: 04/15/18 Time of Encounter: 11:00 - Assessment and plan (1) Chest pain Current Visit: Yes Status: Acute Assessment and plan: Patient reports that he has had intermittent chest pain since January. He reports that he was admitted for the same in February. At that time he was discharged due to unremarkable echo and negative troponins. He reports that the chest pain is becoming more frequent and last 2 days he the pain has remained constant. Today he reports that 5/10. He reports that the pain is located in left side of his chest with radiation to left arm, describes it as pressure-like. He also reports nausea and vomiting within 30-60 minutes after eating and reports a history of Colvin's esophagus. Patient was given a GI cocktail today without any relief. He reports Nexium daily as well. Patient also received no relief from nitroglycerin sublingual. Patient states that the pain is worse with deep inspiration or movement and begins within a couple hours of awakening every day. The pain is relieved sometimes with rest. Troponins are negative. Chest x-ray is unremarkable. EKG was normal sinus rhythm with nonspecific T-wave abnormalities. Patient has been evaluated by cardiology. We will begin stress test in the morning, nothing by mouth after midnight. Continue aspirin, statin, beta eliezer. Continue telemetry Stress test ordered and pending. Aspirin and nitroglycerin for chest pain. Monitor labs and vitals Qualifiers: Chest pain type: unspecified Qualified Code(s): R07.9 - Chest pain, unspecified (2) HTN (hypertension) Current Visit: Yes Status: Chronic Assessment and plan: Chronic. Continue current medications. 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 Continue Nexium. 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 is in bed with him. Patient is pleasant, alert, oriented, answers questions appropriately. Patient reports recent chest pain, left-sided with radiation to bilateral arms. He reports that the chest pain occurs at rest and he states that it begins a couple hours after awakening every day. Reports it becomes worse with deep inspiration or movement, better with rest. Patient also reports history of Colvin's esophagus and is followed at the NH. He reports nausea and vomiting anywhere from 30 minutes to 1 hour after eating meals for several months. During assessment this morning, patient rates his chest pain of 5/10. He does not appear to be anemia distress. The pain is not reproducible with palpation, though it is with deep inspiration or movement. Patient denies any headache, vision changes, neck pain, shortness of breath, abdominal pain, nausea, vomiting , diarrhea, constipation. He denies any peripheral edema or numbness and tingling to extremities. - Constitutional Vitals: Temp Pulse Resp BP Pulse Ox 98.1 F 53 17 103/64 95 04/15/18 16:23 04/15/18 16:23 04/15/18 16:23 04/15/18 16:23 04/15/18 16:23 General appearance: Present: cooperative, A&O X 3, pleasant, no acute distress, answers questions appropriately - Head Head exam: Present: atraumatic, normal inspection, normocephalic - Eye Eye exam: Present: normal appearance, conjuntiva pink, sclera anicteric - Neck Neck exam general surgery: Present: supple, trachea midline. Absent: lymphadenopathy, tenderness - Respiratory Respiratory exam: Present: CTAB. Absent: accessory muscle use, decreased breath sounds, rales, rhonchi, wheezes - Cardiovascular Cardiovascular exam: Present: RRR, +S1, +S2. Absent: diastolic murmur, gallop, rubs, systolic murmur - GI/Abdominal GI/Abdominal exam: Present: normal bowel sounds, soft. Absent: distended, hepatomegaly, tenderness - Extremities Exam Extremities exam: Present: normal capillary refill, normal inspection, warm, radial pulses palpable and symmetrical. Absent: calf tenderness, cyanotic, pedal edema, tenderness - Neurological Exam Neurological exam: Present: alert, oriented X3, no focal deficits. Absent: facial droop, speech deficit - Skin Skin exam: Present: dry, intact, normal color, warm. Absent: rash Internal Medicine: Result - Labs CBC & Chem 7: 04/15/18 05:14 04/15/18 05:14 Labs: Short CBC 04/15/18 Range/Units 05:14 WBC 4.0 L (4.3-11.1) K/mcL Hgb 11.7 L (12.9-16.9) g/dL Hct 34.9 L (37.5-50.1) % Plt Count 133 L (140-400) K/mcL Neutrophils # 2.1 (1.6-8.9) K/mcL BMP 04/15/18 05:14 Sodium 143 Potassium 3.6 Chloride 109 H Carbon Dioxide 28 BUN 13 Creatinine 0.61 L Glucose 90 Calcium 9.2 Cardiac Enzymes 04/14/18 04/15/18 Range/Units 22:02 05:14 Troponin I < 0.03 < 0.03 (< 0.04) ng/mL - ABG Interpretation ABG results: PT/INR, D-dimer PT 11.9 Seconds (9.4-12.1) 04/14/18 14:15 Consult Discharge Plan - Plan Referrals: Lilly Valdez, UNLOADER OPERATOR [Primary Care Provider] -
[2018-04-16] MEDS ORDERED: Regadenoson 0.4 MG/5 ML SYRINGE IVP ONE (06:13)
[2018-04-16] MEDS: Aspirin Enteric Coated 81 MG Tablet PO SCH (09:06)
[2018-04-16] MEDS: *HR* Methadone 5 MG TABLET PO SCH (09:09)
[2018-04-16] MEDS: hydroCHLOROthiazide 25 MG TABLET PO SCH (09:09)
[2018-04-16] MEDS: Latanoprost 2.5 ML BOTTLE BOTH EYES SCH (09:10)
[2018-04-16] MEDS: Potassium Chloride Elixir 20 MEQ/15 ML UDC PO SCH (09:12)
[2018-04-16] MEDS: Nicotine 21 MG PATCH.TD24 TD SCH (09:15)
[2018-04-16 11:57] VITALS: BP 142/76
--- NOTE | 2018-04-16 13:01 | Discharge Summary ---
- NOTES TO OUTPATIENT PROVIDER Notes to Outpatient Provider: Pt admitted for chest pain, ongoing since January, this is the second admission. Troponins negative, EKG with no ischemic changes, TTE with EF 60=65% and mild LVDD. Pt had stress test today that was negative. Likely chest pain is secondary to GERD and Colvin's esophagus. Pain was decreased with GI cocktail and is relieved today with addition of Omeprazole 40mg po daily. Pt has returned to his baseline. Recommend that he have follow up with his GI at the [facility] for continued workup. Orders not resulted at time of discharge: Pending orders 04/16/18 05:52 NM cristopher perf SPECT multi [NM] Routine Date of Encounter: 04/16/18 Time of Encounter: 10:20 - Discharge Diagnosis (1) Chest pain Priority: Primary Status: Acute Assessment and Plan: Pt denies chest pain today. Likely cause of chest pain includes musculoskeletal chest pain vs GERD/Colvin's esophagus. Stress test negative. Troponins are negative. Chest x-ray is unremarkable. EKG was normal sinus rhythm with nonspecific T-wave abnormalities. Patient has been evaluated by cardiology. Continue aspirin, statin, beta eliezer. Recommend follow up with PCP and with GI at [facility] for continued evaluation and possible EGD. Qualifiers: Chest pain type: unspecified Qualified Code(s): R07.9 - Chest pain, unspecified (2) HTN (hypertension) Priority: Secondary Status: Chronic Assessment and Plan: Chronic. Well controlled. Continue current medications. Qualifiers: Hypertension type: essential hypertension Qualified Code(s): I10 - Essential (primary) hypertension (3) Hyperlipidemia Priority: Secondary Status: Acute Assessment and Plan: Chronic. Continue Lipitor. 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 Per patient history. Likely could be cause of chest pain, does not appear to be cardiac in nature. Continue omeprazole 40 mg by mouth daily. 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 Lungs are clear and diminished throughout. He denies any change in cough. Continue albuterol inhaler. Qualifiers: COPD type: unspecified COPD Qualified Code(s): J44.9 - Chronic obstructive pulmonary disease, unspecified (6) DVT prophylaxis Priority: Secondary Status: Acute Assessment and Plan: Patient is ambulatory. Hospital course: Mr. Crain is a 82 year old male with PMH including HTN, tobacco abuse, AAA, COPD , Chronic pancreatitis, HLD, Colvin's esophagus. See assessment and plan for hospital course. Discharge discussed with: patient - Time Spent with Patient Total time spent providing and/or coordinating discharge services: Less than 30 minutes - Discharge Medications Prescriptions: Omeprazole [PriLOSEC] 40 mg PO DAILY #60 capsule. Home Medications: Atorvastatin [Lipitor] 40 mg PO HS 04/26/16 [History] Docusate [Colace] 100 mg PO HS PRN 04/26/16 [History] Megestrol Acetate [Megace] 40 mg PO DAILY 04/26/16 [History] Nitroglycerin [Nitrostat] 0.4 mg SL AD PRN 04/26/16 [History] Quetiapine Fumarate [Seroquel] 100 mg PO HS 04/26/16 [History] Sertraline [Zoloft] 50 mg PO DAILY 04/26/16 [History] Zolpidem [Ambien] 10 mg PO HS 04/26/16 [History] Albuterol Sulfate [Albuterol Inhaler] 2 puff IH Q4-6H PRN 07/23/17 [History] Aspirin Enteric Coated [Aspirin EC] 81 mg PO DAILY #30 tablet. 07/24/17 [Rx] Metoprolol [Lopressor] 12.5 mg PO BID #60 tab 07/24/17 [Rx] Travoprost [Travatan Z] 1 drop OP BID 03/14/18 [History] Methadone 5 mg PO Q8HR 04/14/18 [History] Oxycodone HCl/Acetaminophen [Percocet 5-325 mg Tablet] 2 tab PO TID PRN [History] Potassium Chloride Elixir [Potassium Chloride] 20 meq PO DAILY 04/14/18 [History ] Promethazine [Phenergan] 12.5 mg PO Q8HR 04/14/18 [History] hydroCHLOROthiazide [Hydrochlorothiazide] 12.5 mg PO DAILY 04/14/18 [History] Omeprazole [PriLOSEC] 40 mg PO DAILY #60 capsule. 04/16/18 [Rx] Allergies/Adverse Reactions: 3 Allergy/AdvReac Type Severity Reaction Status Date / Time codeine AdvReac Dizziness Verified 04/14/18 14:06 sucralfate [From Carafate] AdvReac Gastrointestinal Verified 04/14/18 14:06 Upset Date of admission: 04/14/18 19:26 Primary care physician: Lilly Valdez CNP Consults: 04/14/18 21:11 Consult to Cardiology [CONS] Routine Comment: Consulting Provider: Cardiology Karli Reason for Consult: Chest pain, constant, respond to NTG Call Completed: No 04/15/18 01:07 Consult to Switcher [CONS] Routine Reason for SW Consult: Concern for caregive fatigue. 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 Discharging clinician: Marianna Edwards Anticipated date of discharge: 04/16/18 - Constitutional Vitals: Temp Pulse Resp BP Pulse Ox 98.8 F 56 16 142/76 91 04/16/18 11:54 04/16/18 11:54 04/16/18 11:54 04/16/18 11:54 04/16/18 11:54 General appearance: Present: cooperative, A&O X 3, pleasant, no acute distress, answers questions appropriately - Head Head exam: Present: atraumatic, normal inspection, normocephalic - Eye Eye exam: Present: normal appearance, conjuntiva pink, sclera anicteric - Neck Neck exam general surgery: Present: supple, trachea midline. Absent: lymphadenopathy, tenderness - Respiratory Respiratory exam: Present: chest wall tenderness, CTAB. Absent: accessory muscle use, decreased breath sounds, rales, respiratory distress, rhonchi, wheezes - Cardiovascular Cardiovascular exam: Present: RRR, +S1, +S2. Absent: diastolic murmur, gallop, rubs, systolic murmur - GI/Abdominal GI/Abdominal exam: Present: normal bowel sounds, soft, tenderness. Absent: distended, hepatomegaly - Extremities Exam Extremities exam: Present: normal capillary refill, normal inspection, warm, radial pulses palpable and symmetrical. Absent: calf tenderness, cyanotic, pedal edema, tenderness - Neurological Exam Neurological exam: Present: alert, oriented X3, no focal deficits. Absent: facial droop, speech deficit - Skin Skin exam: Present: dry, intact, normal color, warm. Absent: rash - Patient Status Disposition: Home, Self-Care Condition: Good Functional capacity at discharge: independent ambulation Overall status at discharge: patient is back to baseline - Discharge Instructions Follow Up With: Lilly Valdez CNP [Primary Care Provider] - 04/21/18 10:00 am Additional Instructions: Follow-up with your primary care provider in the next 7-10 days for recheck. Follow-up with cardiology as scheduled. Return to your normal medications, new medication is called in to your pharmacy. Return to the emergency department as needed for any other problems or concerns , or if your symptoms return or worsen. Return to your normal diet and activities as tolerated. - Diet and Activity Activity: increase activity as tolerated Diet: advance to your usual diet - VTE Documentation of Mechanical Device: Intermittent pneumatic compression device
--- NOTE | 2018-04-16 13:22 | Cardiology Progress Note ---
Date of Encounter: 04/16/18 Time of Encounter: 09:18 Assessment and Plan (1) Chest pain Current Visit: Yes Status: Acute - Atypical chest pain. (Dull with radiation to left arm, persistent for 2 months , not relieved by NTG, worse with cough) - Troponin negative x3 and EKG shows no acute ischemic changes. - Suspect that there may be a MSK component given starting around the time he had the flu/ recurrent URIs - Also may have some GI component give history of Colvin's esophagus - Recent cardiac workup of Echo in 03/15/18 showing EF of 60-65%, mild diastolic dysfunction. - Stress test this AM was negative for ischemia or infarct. Patient continued to describe chest pain during test. 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 - Suspect more likely MSK pain vs Barretts. - Consider GI cocktail however patient reports allergy to sucralfate of GI upset. 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 Continue home meds. Qualifiers: Hypertension type: essential hypertension Qualified Code(s): I10 - Essential (primary) hypertension (4) History of abdominal aortic aneurysm Current Visit: Yes Status: Chronic - As seen on CT scan in August 2017. 4cm at that time. (5) Hyperlipidemia Current Visit: Yes Status: Acute continue statin Qualifiers: Hyperlipidemia type: mixed hyperlipidemia Qualified Code(s): E78.2 - Mixed hyperlipidemia Discussion w patient/family: The assessment and plan as outlined above was discussed with the patient and/or family members who expressed understanding and agreement. All questions were answered. Thank you for involving us in the care of your patient. Please call with any questions. Subjective Principal diagnosis: Chest pain Interval history: Patient seen and examined. Still is having some chest pain. Unchanged. Constant and no has complaint of right arm pain. Worse with movement of arm. No SOB, palpitations. Objective Vital Signs, Last 4 Hours Temp Pulse Resp BP Pulse Ox 04/16/18 11:54 98.8 F 56 16 142/76 91 General: Conversant, No Apparent Distress HEENT: Atraumatic, Normocephaly, Mucus Membranes Moist Neck: No JVD, Normal carotid pulses Cardiac: Reg Rate and Rhythm, Normal S1 and S2, No Murmur Lungs: Normal Breath Sounds, No Wheeze, Rales, Rhonchi Neuro: Alert and responsive, No focal deficits noted Skin: No rashes noted on visualized skin Musculoskeletal: Other (mild chest wall tenderness) Extremities: No Clubbing, No Cyanosis, No Edema, Normal Pulses Results 04/15/18 05:14 04/15/18 05:14 - VTE Documentation of Mechanical Device: Intermittent pneumatic compression device Consult Discharge Plan - Plan Referrals: Lilly Valdez, MICA MACHINE OPERATOR [Primary Care Provider] - 04/21/18 10:00 am
== END 2018-04-16 13:59 | disposition home or self-care (01) ==
LOC: 3BNU 14:02 → EMEROO 14:02 → 3BNU 19:57
PROVIDERS: ADMIT Internal Medicine; ATTEND Nurse Practitioner Family

== ENCOUNTER 2018-06-09 10:48 | Inpatient (IN) ==
[2018-06-09] MEDS ORDERED: Nitroglycerin 0.4 MG TAB.SUBL SL PRN ×2 (11:07→14:06)
[2018-06-09] MEDS ORDERED: Aspirin 325 MG TABLET PO ONE (11:07)
--- NOTE | 2018-06-09 11:11 | Emergency Department Note ---
Disposition Clinical Impression: Chest pain Qualifiers: Chest pain type: unspecified Qualified Code(s): R07.9 - Chest pain, unspecified Disposition: Admitted As Inpatient Condition: Good Forms: ED Satisfaction Letter Time of Disposition: 12:46 Chest Pain HPI - General Chief Complaint: ED Chest Pain Stated Complaint: chest pain Time Seen by Provider: 06/09/18 10:51 Source: patient, family Mode of arrival: ambulatory Limitations: no limitations Vital Signs Reviewed: Yes Nursing Notes Reviewed: Yes - History of Present Illness HPI Narrative: 82 year old male prsenst to the ED with complaints of on-going chest pain and state taht this has been a chronic problem since January, and he becomes diaphoretic during exertional dyspnea and that his chest pain sits in the left side of his upper chest with radiation into bilateral arms and that he was most recently admitted to the [facility] this month for chest pain rule out ACS. he was seen by the transportation design engineer Dr. Bryant during his hospital admission who recommended cardiac catherization and he declines and wanted to try outpatinet mangement intsead. PAtient states that in the course of the past 2-3 days it has been worsening without relief. Patient states that he is amennable to having the cardiac catherization done now. Severity scale (1-10): 10 - Related Data Home Medications Medication Instructions Recorded Confirmed Atorvastatin [Lipitor] 40 mg PO HS 04/26/16 04/14/18 Docusate [Colace] 100 mg PO HS PRN 04/26/16 04/14/18 Megestrol Acetate [Megace] 40 mg PO DAILY 04/26/16 04/14/18 Nitroglycerin [Nitrostat] 0.4 mg SL AD PRN 04/26/16 04/14/18 Quetiapine Fumarate [Seroquel] 100 mg PO HS 04/26/16 04/14/18 Sertraline [Zoloft] 50 mg PO DAILY 04/26/16 04/14/18 Zolpidem [Ambien] 10 mg PO HS 04/26/16 04/14/18 Albuterol Sulfate [Albuterol 2 puff IH Q4-6H PRN 07/23/17 04/14/18 Inhaler] Travoprost [Travatan Z] 1 drop OP BID 03/14/18 04/14/18 Methadone 5 mg PO Q8HR 04/14/18 04/14/18 Oxycodone HCl/Acetaminophen 2 tab PO TID PRN 04/14/18 04/14/18 [Percocet 5-325 mg Tablet] Promethazine [Phenergan] 12.5 mg PO Q8HR 04/14/18 04/14/18 hydroCHLOROthiazide 12.5 mg PO DAILY 04/14/18 04/14/18 [Hydrochlorothiazide] Potassium Chloride [K-Tab ER] 10 meq PO DAILY 06/09/18 Previous Rx's Medication Instructions Recorded Aspirin Enteric Coated [Aspirin EC] 81 mg PO DAILY #30 tablet. 07/24/17 Metoprolol [Lopressor] 12.5 mg PO BID #60 tab 07/24/17 Omeprazole [PriLOSEC] 40 mg PO DAILY #60 capsule. 04/16/18 Allergies Allergy/AdvReac Type Severity Reaction Status Date / Time codeine AdvReac Dizziness Verified 06/09/18 11:40 sucralfate [From Carafate] AdvReac Gastrointestinal Verified 06/09/18 11:40 Upset Review of Systems: As Per HPI Constitutional: Denies: fever, chills, weakness, weight change Eyes: Denies: eye pain, eye discharge, vision change ENT ED: Denies: ear pain, throat pain, dental pain, hearing loss, epistaxis, congestion, dysphagia Cardiovascular: Reports: chest pain, dyspnea on exertion. Denies: palpitations , edema, syncope Respiratory: Denies: cough, dyspnea, wheezes, hemoptysis, stridor Gastrointestinal: Denies: abdominal pain, nausea, vomiting, diarrhea, constipation, hematemesis, melena, hematochezia Genitourinary: Denies: urgency, dysuria, frequency, hematuria Musculoskeletal: Denies: back pain, neck pain, arthralgia, myalgia Integumentary: Denies: rash, abrasion, lesions Neurological: Denies: headache, weakness, numbness, paresthesias, confusion, abnormal gait, vertigo Psychiatric: Denies: anxiety, depression, suicidal thoughts, homicidal thoughts , auditory hallucinations, visual hallucinations Endocrine: Denies: fatigue Hematological/Lymphatic: Denies: easy bleeding, easy bruising Allergic/Immunologic: Denies: facial swelling, urticaria Chest Pain PMH - Past Medical History Medical history: Reports: COPD, coronary artery disease, GERD, glaucoma, hyperlipidemia, hypertension, thyroid disease Surgical history: Reports: cholecystectomy, orthopedic, other Psychiatric history: Reports: anxiety, depression - Social History Smoking Status: Current every day smoker Alcohol use: Reports: none Drug use: Reports: none Physical Exam - General Limitations: no limitations General appearance: alert, in no apparent distress - Head Head exam: atraumatic, normocephalic, normal inspection - Eye Eye exam: Present: normal appearance, PERRL, EOMI - Expanded Eye Exam Pupils: Left: reactive - ENT ENT exam: normal exam, normal oropharynx, mucous membranes moist - Expanded ENT Exam External ear exam: Present: normal external inspection Mouth exam: Present: normal external inspection Teeth exam: Present: normal inspection Throat exam: Present: normal inspection - Neck Neck exam: Present: normal inspection, full ROM, trachea midline - Chest Chest inspection: Present: normal inspection, symmetric chest wall rise - Respiratory Respiratory exam: Present: normal lung sounds bilaterally - Cardiovascular Cardiovascular exam: Present: regular rate, normal rhythm, normal heart sounds - Abdominal Exam Abdominal exam: Present: soft, Non-Tender. Absent: tenderness, distention, guarding, rebound, rigidity - Extremities Exam Extremities exam: Present: normal inspection, full ROM. Absent: tenderness, pedal edema - Expanded Upper Extremity Exam Shoulder exam: Present: normal inspection, full ROM Arm exam: Present: normal inspection, full ROM Elbow exam: Present: normal inspection, full ROM Forearm/Wrist exam: Present: normal inspection, full ROM Hand exam: Present: normal inspection, full ROM Vascular exam: Normal: capillary refill, radial pulse - Expanded Lower Extremity Exam Hip/Pelvis exam: Present: normal inspection, full ROM Upper leg exam: Present: normal inspection, full ROM Knee exam: Present: normal inspection, full ROM Lower leg exam: Present: normal inspection, full ROM Ankle exam: Present: normal inspection, full ROM Foot/toe exam: Present: normal inspection, full ROM Neurovascular/Tendon exam: Absent: motor deficit, sensory deficit, tendon deficit - Back Exam Back exam: Present: normal inspection, full ROM. Absent: tenderness - Neurological Exam Neurological exam: Present: alert, oriented X3 - Expanded Neurological Exam Patient oriented to: Present: person, place, time Coma Scale Eye Opening: Spontaneous Coma Scale Motor Response: Obeys Commands Coma Scale Verbal Response: Oriented Coma Scale Total: 15 - Psychiatric Psychiatric exam: Present: normal affect, normal mood - Skin Skin exam: Present: warm, dry, intact, normal color Course Course Narrative: we will do aCS workup and add nitro/ASA to therapy and admit to medicine for cards consult for catherization. - Consultations Consultation #1: discused case with Dr. Guthrie and he accepts patient for admission Time: 12:46 Vital Signs Temperature 97.6 F 06/09/18 10:50 Pulse Rate 91 06/09/18 10:50 Respiratory Rate 18 06/09/18 10:50 Blood Pressure 135/85 06/09/18 10:50 O2 Sat by Pulse Oximetry 98 06/09/18 10:50 Temperature 97.6 F 06/09/18 10:50 Pulse Rate 69 06/09/18 11:56 Respiratory Rate 16 06/09/18 11:56 Blood Pressure 115/85 06/09/18 11:56 O2 Sat by Pulse Oximetry 95 06/09/18 11:56 Oxygen Delivery Oxygen Delivery Room Air Chest Pain - Medical Records Medical records reviewed: Yes I reviewed the patient's medical records. - Lab Data Lab results reviewed: Yes I reviewed the patient's lab results. Result diagrams: 06/09/18 11:16 06/09/18 11:16 Lab Results 06/09/18 06/09/18 06/09/18 Range/Units 11:16 11:16 11:16 WBC 4.2 L (4.3-11.1) K/mcL RBC 3.98 L (4.19-5.50) M/mcL Hgb 13.4 (12.9-16.9) g/dL Hct 39.6 (37.5-50.1) % MCV 99.5 (83.0-100.0) fL MCH 33.7 H (28.0-33.3) pg MCHC 33.8 (31.6-35.5) g/dL RDW 12.6 (11.5-14.5) % Plt Count 136 L (140-400) K/mcL MPV 12.1 (9.4-12.4) fL Immature Gran % 0.2 (0-4) % Seg Neutrophils % 57.6 % Lymphocytes % 30.0 % Monocytes % 10.6 % Eosinophils % 1.4 % Basophils % 0.2 % Neutrophils # 2.4 (1.6-8.9) K/mcL Lymphocytes # 1.3 (0.6-4.6) K/mcL Monocytes # 0.5 (0.0-1.3) K/mcL Eosinophils # 0.1 (0.0-0.6) K/mcL Basophils # 0.0 (0.0-0.2) K/mcL PT 13.1 H (9.4-12.1) Seconds INR 1.2 APTT 30.4 (26.0-36.0) Seconds Sodium 139 (136-145) mEq/L Potassium 3.9 (3.5-5.1) mEq/L Chloride 107 (98-107) mEq/L Carbon Dioxide 25 (23-29) mEq/L BUN 13 (8-23) mg/dL Creatinine 0.75 (0.70-1.30) mg/dL Est GFR ( Amer) > 60 (> 60) Est GFR (Non-Af Amer) > 60 (> 60) BUN/Creatinine Ratio 17 (6-26) Glucose 124 H (70-105) mg/dL Calculated Osmolality 290 (280-300) Calcium 9.4 (8.6-10.3) mg/dL Troponin I < 0.03 (< 0.04) ng/mL - Radiology Data Radiology results reviewed: Yes I reviewed the patient's radiology results. - EKG Data EKG attestation: Yes I reviewed and interpreted this EKG. EKG results narrative: NSR with rate of 83. NO STEMI. normal intervals. no change from 04/14/18. 1058 Heart Score - Score History: Moderately Suspicious EKG: Non Specific repolarisation Disturbance Age: Greater than 65 Risk Factors: 1-2 risk factors Troponin: Less than normal limit HEART Score Total: 5
[2018-06-09 11:45] LABS: Basophils % 0.2 %; Eosinophils # 0.1 K/mcL (0.0-0.6); Eosinophils % 1.4 %; Hematocrit 39.6 % (37.5-50.1); Hemoglobin 13.4 g/dL (12.9-16.9); Immature Granulocytes % 0.2 % (0-4); Lymphocytes # 1.3 K/mcL (0.6-4.6); Mean Corpuscular HGB Conc 33.8 g/dL (31.6-35.5); Mean Corpuscular Hemoglobin 33.7 pg (28.0-33.3); Mean Corpuscular Volume 99.5 fL (83.0-100.0); Mean Platelet Volume 12.1 fL (9.4-12.4); Monocytes # 0.5 K/mcL (0.0-1.3); Monocytes % 10.6 %; Neutrophils # 2.4 K/mcL (1.6-8.9); Platelet Count 136 K/mcL (140-400); Red Blood Count 3.98 M/mcL (4.19-5.50); Red Cell Distribution Width 12.6 % (11.5-14.5); Segmented Neutrophils % 57.6 %
[2018-06-09 11:52] LABS: INR 1.2; Prothrombin Time 13.1 Seconds (9.4-12.1); Troponin I < 0.03 ng/mL (< 0.04)
[2018-06-09 11:54] LABS: Activated Partial Thrombo Time 30.4 Seconds (26.0-36.0); BUN/Creatinine Ratio 17 (6-26); Blood Urea Nitrogen 13 mg/dL (8-23); Calcium 9.4 mg/dL (8.6-10.3); Carbon Dioxide 25 mEq/L (23-29); Chloride 107 mEq/L (98-107); Glucose 124 mg/dL (70-105); Osmolality,Calculated 290 (280-300); Potassium 3.9 mEq/L (3.5-5.1); Sodium 139 mEq/L (136-145); eGFR For Non-African Americans > 60 (> 60)
[2018-06-09] MEDS ORDERED: *HR* FentaNYL (PF) 100 MCG/2 ML VIAL IVP ONE (11:59)
[2018-06-09] MEDS ORDERED: Naloxone 0.4 MG/ML INJ IVP PRN (13:53)
[2018-06-09] MEDS ORDERED: *HR* Heparin 5,000 UNIT/ML VIAL IVP PRN ×2 (14:06)
[2018-06-09] MEDS ORDERED: *HR* Heparin 5,000 UNIT/ML VIAL IVP ONE (14:06)
[2018-06-09] MEDS ORDERED: *HR* Promethazine 25 MG/ML VIAL IVP PRN (14:09)
[2018-06-09] MEDS ORDERED: Heparin 25,000 UNIT/500 ML D5W 25,000 UNIT/500 ML BAG IVC SCH (14:15)
--- NOTE | 2018-06-09 14:22 | Internal Med History&Physical ---
<JoseeMika Calles - Last Filed: 06/09/18 14:54> Date of Encounter: 06/09/18 Time of Encounter: 13:00 Internal Medicine - H&P: HPI Chief complaint: CP Admitted From: Emergency Dept Plans for Post Hospital Care: Home History of present illness: Mr. Crain is a 82 year old male w/PMH of COPD, CAD, GERD, glaucoma, HLD, HTN, and thyroid disease presents from the ED with chief complaint of chest pain for the past 2-3 days that has been constant, left-sided, with radiation to patient' s left arm, left jaw, and back. Pt. states nitroglycerin, oxycodone, and methadone did not help the pain. Pt. states he is on methadone for chronic back pain d/t injury/surgery. No alleviating factors. Aggravating factor: exertion. Associated sx: nausea, vomiting, diaphoresis, dizziness. Pt. reports CP 6-7 years ago that was sharp/stabbing which was worse than now which resulted in heart cath w/o stent placement. Pt. seen at [facility] in February and March for same sx. Pt. reports numbness and tingling in bilateral feet but denies recent illness, fever, chills, changes in vision, headache, cough, chest congestion, abdominal pain, diarrhea, constipation, pre-syncope, or syncope. Past Med Surg Social Fam HX - Past Medical History Source: patient, old records reviewed, obtained from family Medical history: COPD, coronary artery disease, GERD, glaucoma, hyperlipidemia, hypertension, thyroid disease Additional medical history: gastropatesis, vitamin d deficiency, anorexia, BPH, neuritis Psychiatric history: anxiety, depression - Past Surgical History Surgical History: cholecystectomy, orthopedic, other Additional surgical history: Back Surgery - Social History Smoking Status: Current every day smoker Smokeless Tobacco Status: No Alcohol use: none Drug use: none Current living situation: Home, With Family Activity Level: Independent ambulation Recent Out of Country Travel Within the Last 8 Weeks: No Exposure or Possible Exposure to Illness During Travel: No - Family History Mother Adopted: No Race: Family Member Ethnicity: Non- Living Status: Age at : 85 Cause of : [place] Hx Family Cardiac Disorders: Yes ([place]) Father Race: Family Member Ethnicity: Non- Living Status: Age at : 77 Cause of : Brain tumor Hx Family Cancer: Yes (Brain tumor) Brother Race: Family Member Ethnicity: Non- Living Status: Age at : 72 Cause of : [place] Hx Family Cardiac Disorders: Yes ([place]) Sister Race: Family Member Ethnicity: Non- Living Status: Still Living Hx Family Medical Disorders: No Son Race: Family Member Ethnicity: Non- Living Status: Age at : 38 Cause of : Colon cancer Hx Family Cancer: Yes (Colon) Internal Medicine - H&P: Meds Atorvastatin [Lipitor] 40 mg PO HS 04/26/16 [History] Docusate [Colace] 100 mg PO HS PRN 04/26/16 [History] Megestrol Acetate [Megace] 40 mg PO DAILY 04/26/16 [History] Nitroglycerin [Nitrostat] 0.4 mg SL AD PRN 04/26/16 [History] Quetiapine Fumarate [Seroquel] 100 mg PO HS 04/26/16 [History] Sertraline [Zoloft] 100 mg PO DAILY 04/26/16 [History] Zolpidem [Ambien] 10 mg PO HS 04/26/16 [History] Albuterol Sulfate [Albuterol Inhaler] 2 puff IH Q4-6H PRN 07/23/17 [History] Aspirin Enteric Coated [Aspirin EC] 81 mg PO DAILY #30 tablet. 07/24/17 [Rx] Metoprolol [Lopressor] 12.5 mg PO BID #60 tab 07/24/17 [Rx] Methadone 5 mg PO Q8HR 04/14/18 [History] Oxycodone HCl/Acetaminophen [Percocet 5-325 mg Tablet] 2 tab PO TID PRN [History] Esomeprazole Magnesium [Nexium] 40 mg PO DAILY 06/09/18 [History] Latanoprost [Xalatan] 1 drop BOTH EYES DAILY 06/09/18 [History] Lipase/Protease/Amylase [Enrrique Kennedy 24,000 Units Capsule] 2 cap PO BID 06/09/18 [ History] Potassium Chloride [K-Tab ER] 10 meq PO DAILY 06/09/18 [History] Salmeterol Xinafoate [Serevent Diskus] 1 puff IH BID 06/09/18 [History] 3 Allergy/AdvReac Type Severity Reaction Status Date / Time codeine AdvReac Dizziness Verified 06/09/18 11:40 sucralfate [From Carafate] AdvReac Gastrointestinal Verified 06/09/18 11:40 Upset All Systems PM: A 10-system review of systems was performed and is negative for pertinent findings except as documented above in the HPI. - Constitutional Constitutional: as per HPI, no chills, no fever(s), no night sweats - EENT Eyes: no change in vision, no discharge, no pain, no photophobia Ears: no ear discharge, no ear pain, no tinnitus Nose, mouth and throat: no dysphagia, no nasal discharge, no neck pain, no sore throat - Breasts Breasts: as per HPI - Cardiovascular Cardiovascular ROS IM: as per HPI, chest pain, diaphoresis, dyspnea, dyspnea on exertion, lightheadedness, no palpitations, no syncope - Respiratory Respiratory: as per HPI, dyspnea, dyspnea on exertion, no cough, no wheezing, no excessive phlegm production - Gastrointestinal Gastrointestinal: nausea, vomiting, no abdominal pain, no diarrhea, no hematemesis, no hematochezia, no melena - Genitourinary Genitourinary ROS male: as per HPI - Musculoskeletal Musculoskeletal ROS IM: as per HPI, back pain, no numbness, no tingling - Integumentary Integumentary IM: as per HPI, no rash, no unusual bruising - Neurological Neurological ROS: dizziness, no confusion, no convulsions, no focal weakness, no numbness, no tingling, no tremor(s) - Psychiatric Psychiatric: as per HPI, anxiety, depression - Endocrine Endocrine IM: as per HPI - Hematologic/Lymphatic Hematologic/Lymphatic: as per HPI, no easy bruising - Allergic/Immunologic Allergic/Immunologic: as per HPI - Constitutional Vitals: Temp Pulse Resp BP Pulse Ox 97.6 F 69 16 118/82 95 06/09/18 10:50 06/09/18 11:56 06/09/18 13:40 06/09/18 13:40 06/09/18 11:56 General appearance: Present: cooperative, mild distress (CP), A&O X 3, pleasant , underweight, answers questions appropriately - Head Head exam: Present: atraumatic, normocephalic - Eye Eye exam: Present: PERRL, conjuntiva pink, sclera anicteric Pupils: Present: PERRL - ENT ENT exam: Present: normal exam - Neck Neck exam general surgery: Present: normal inspection, supple, trachea midline. Absent: lymphadenopathy - Respiratory Respiratory exam: Present: CTAB. Absent: accessory muscle use, rales, rhonchi, wheezes - Cardiovascular Cardiovascular exam: Present: RRR, +S1, +S2. Absent: diastolic murmur, gallop, rubs, systolic murmur - GI/Abdominal GI/Abdominal exam: Present: normal bowel sounds, soft, no peritoneal signs. Absent: distended, tenderness - Rectal Rectal exam: Present: deferred - Additional comments: exam deferred. - Extremities Exam Extremities exam: Present: warm, radial pulses palpable and symmetrical. Absent : calf tenderness, cyanotic, pedal edema - Back Exam Back exam: Present: normal inspection - Neurological Exam Neurological exam: Present: alert, CN II-XII intact, oriented X3, no focal deficits. Absent: pronater drift, facial droop, speech deficit - Psychiatric Psychiatric exam: Present: normal affect, normal mood - Skin Skin exam: Present: dry, intact Internal Med - H&P Results - Labs CBC & Chem 7: 06/09/18 14:30 06/09/18 11:16 - EKG Data EKG shows normal: sinus rhythm - EKG Data Prior EKG available for review: yes EKG comments: 06/09/18 14:29 EKG dated 04/14/18 shows sinus rhythm with nonspecific T-wave abnormality. EKG dated 06/09/18 shows sinus rhythm with normal P axis, the rate 50-99, atrial premature complex, SV complex w/short R-R interval. - Diagnostic Studies Chest x-ray Additional comments: Impressions Chest X-Ray 06/09/18 10:53 IMPRESSION: Stable chest without acute focal process. D/ / Chris Cartwright MD / Chris Cartwright MD Interpreting Provider: Chris Cartwright MD - Assessment and plan (1) Chest pain Current Visit: Yes Status: Acute Assessment and plan: Acute on chronic CP. Pt. reports severe chest pressure for the past 2-3 days. Was seen in February and had Echo which showed LVEF 60-65%, normal LV chamber size and function, mild asymmetric check hypertrophy of the basal septum with no obstruction, mild left ventricular diastolic dysfunction, normal right ventricular structure and function, no evidence of pulmonary hypertension, and no significant valvular dysfunction. Was seen in March and had nuclear stress test done. Reports constant left-sided chest pressure with radiation to left arm, left jaw, and back. Aggravating factor: Exertion. Alleviating factors: none. Reports heart catheterization several years ago without stent placement. Associated symptoms: Nausea, vomiting, diaphoresis. Continuous cardiac telemetry. Initial troponin less than 0.03. Will trend. Cardiology consult ordered and discussed with Dr. Amin with plan to begin heparin drip. Patient reports not eating today. Will keep nothing by mouth for possible heart catheterization. EKG today shows sinus rhythm with normal P axis, the rate 5099 , atrial premature complex, ST complex short R-R interval. Supplemental O2 with titration and SPO2 monitoring when necessary. Discussed patient with Dr. Guthrie who is in agreement with plan of care. Patient is high risk for cardiac event and further morbidity due to current and constant CP, history of CP over past several months, current tobacco abuse; and risk factors of tobacco use, HTN , HLD, CAD, and extensive familial history of [place]. Inpatient. (2) Nausea and vomiting Current Visit: Yes Status: Acute Assessment and plan: Acute N/V w/CP sx. IVP Phenergan 12.5 mg every 6 hours when necessary for nausea and vomiting. Monitor I&O. (3) GERD (gastroesophageal reflux disease) Current Visit: Yes Status: Chronic Assessment and plan: Hx of chronic GERD. IVP Phenergan 12.5 mg every 6 hour when necessary for nausea and vomiting. (4) HLD (hyperlipidemia) Current Visit: Yes Status: Chronic Assessment and plan: Hx of chronic H LD. Lipid panel in a.m. labs. Continue patient's Lipitor. (5) HTN (hypertension) Current Visit: Yes Status: Chronic Assessment and plan: Hx of chronic HTN. Monitor patient vital signs. Continue patient's Lopressor. (6) CAD (coronary artery disease) Current Visit: Yes Status: Chronic Assessment and plan: Hx of chronic CAD. Previous heart cath several years ago w/o placement. Reports CP for the past several months, worsening over the past two days. Continuous cardiac telemetry. Continue pts. aspirin therapy, Lipitor, and Lopressor. (7) COPD (chronic obstructive pulmonary disease) Current Visit: Yes Status: Chronic Assessment and plan: Hx of chronic COPD. Stable. Continue pts. inhalers. Supplemental O2 w/titration and SpO2 monitoring. (8) Tobacco abuse Current Visit: Yes Status: Chronic Assessment and plan: Hx of chronic tobacco abuse. Pt. counseled regarding smoking cessation and the benefits/methods for cessation >10 minutes. (9) DVT prophylaxis Current Visit: Yes Status: Acute Assessment and plan: Pt. started on low-dose heparin drip d/t CP. Monitor pt. for signs of bleeding. (10) Thyroid disease Current Visit: Yes Status: Chronic Assessment and plan: Hx of chronic thyroid disease. Pt. does not currently take Synthroid. TSH and Free T4 in a.m. labs. - Time Spent With Patient Total time spent is greater than 50% in coordination of care (as documented) at patient's floor/unit and/or counseling patient: Greater than 35 minutes <Harjinder Guthrie - Last Filed: 06/09/18 19:57> Date of Encounter: 06/09/18 Internal Medicine - H&P: HPI History of present illness: Mr. Crain is a 82 year old male All Systems PM: A 10-system review of systems was performed and is negative for pertinent findings except as documented above in the HPI. - Constitutional Vitals: Temp Pulse Resp BP Pulse Ox 98 F 73 16 125/78 98 06/09/18 18:55 06/09/18 18:55 06/09/18 18:55 06/09/18 18:55 06/09/18 18:55 Internal Med - H&P Results - Labs CBC & Chem 7: 06/09/18 14:30 06/09/18 11:16 Labs: Short CBC 06/09/18 Range/Units 14:30 WBC 4.9 (4.3-11.1) K/mcL Hgb 12.6 L (12.9-16.9) g/dL Hct 37.7 (37.5-50.1) % Plt Count 145 (140-400) K/mcL Neutrophils # 2.7 (1.6-8.9) K/mcL Cardiac Enzymes 06/09/18 Range/Units 16:32 Troponin I < 0.03 (< 0.04) ng/mL - Attending Attestation I have seen and examined this pt independently. I have discussed with CUSTOMER EXPERIENCE STRATEGIST Mr Tripp regarding the management plan. Agree with the documentation. - Assessment and plan (1) Tobacco abuse Current Visit: Yes Status: Chronic (2) DVT prophylaxis Current Visit: Yes Status: Acute (3) COPD (chronic obstructive pulmonary disease) Current Visit: Yes Status: Chronic Qualifiers: COPD type: unspecified COPD Qualified Code(s): J44.9 - Chronic obstructive pulmonary disease, unspecified (4) Chest pain Current Visit: Yes Status: Acute Qualifiers: Chest pain type: unspecified Qualified Code(s): R07.9 - Chest pain, unspecified (5) HLD (hyperlipidemia) Current Visit: Yes Status: Chronic Qualifiers: Hyperlipidemia type: pure hypercholesterolemia Qualified Code(s): E78.00 - Pure hypercholesterolemia, unspecified; E78.0 - Pure hypercholesterolemia (6) HTN (hypertension) Current Visit: Yes Status: Chronic Qualifiers: Hypertension type: essential hypertension Qualified Code(s): I10 - Essential (primary) hypertension (7) Nausea and vomiting Current Visit: Yes Status: Acute Qualifiers: Vomiting type: cyclical vomiting Vomiting Intractability: non-intractable Qualified Code(s): G43.A0 - Cyclical vomiting, not intractable (8) CAD (coronary artery disease) Current Visit: Yes Status: Chronic Qualifiers: Coronary Disease-Associated Artery/Lesion type: unspecified vessel or lesion type [place] vs. transplanted heart: [place] heart Associated angina: angina presence unspecified Qualified Code(s): I25.10 - Atherosclerotic heart disease of [place] coronary artery without angina pectoris (9) GERD (gastroesophageal reflux disease) Current Visit: Yes Status: Chronic Qualifiers: Esophagitis presence: with esophagitis Qualified Code(s): K21.0 - Gastro- esophageal reflux disease with esophagitis (10) Thyroid disease Current Visit: Yes Status: Chronic - Time Spent With Patient Total time spent is greater than 50% in coordination of care (as documented) at patient's floor/unit and/or counseling patient:
--- NOTE | 2018-06-09 14:42 | Cardiology Consult Note ---
<David Mendoza Nichole - Last Filed: 06/09/18 14:53> Date of Encounter: 06/09/18 Time of Encounter: 14:38 Assessment and Plan (1) Unstable angina Current Visit: Yes Status: Acute Presents with persistent chest pain despite medical therapy. Troponin negative. EKG with no concerning changes. Recent cardiac work-up reviewed: Echo in 03/15/18 showing EF of 60-65%, mild diastolic dysfunction. Stress test 03/2018 was negative for ischemia or infarct. EF >70%. Outpatient records of [facility] in 2013 show non obstructive CAD with 20-40% stenosis. Patient states he had EGD 2 weeks ago at [place] with no concerning finding. LH discussed at last hospital stay and he opted for medical management at that time. On asa, statin, and bb. On SL NTG PRN with no relief. LHC verses continued medical management reviewed. R/B/A of [facility] discussed. He would like to proceed with [facility] for further evaluation of symptoms. (2) CAD (coronary artery disease) Current Visit: Yes Status: Chronic H/o mild non-obstructive CAD. Smoking cessation. ' Continue asa, statin, and bb. Qualifiers: Coronary Disease-Associated Artery/Lesion type: unspecified vessel or lesion type [place] vs. transplanted heart: [place] heart Associated angina: angina presence unspecified Qualified Code(s): I25.10 - Atherosclerotic heart disease of [place] coronary artery without angina pectoris Discussion w patient/family: The assessment and plan as outlined above was discussed with the patient and/or family members who expressed understanding and agreement. All questions were answered. Thank you for involving us in the care of your patient. Please call with any questions. History of Present Illness Consult date: 06/09/18 Requesting physician: Kandy Shen Consult reason: Persistent chest pain Chief complaint: Chest pain, diaphoresis History of present illness: Mr. Crain is a 82 year old male PMhx of non-obstructive CAD, Colvin esophagus, glaucoma, HLD, HTN, ascending aortic aneurysm (4.2cm) presents to ED with a complaint of increasing chest pain and diaphoresis. Symptoms started 4 months ago. He woke up one night covered in sweat and experienced chest pain. Since that time he underwent thorough testing. Stress test and TTE completed 03/2018 with no concerning findings. Reports [facility] significant finding. He was found to have peptic ulcers 09/2017 and states they have resolved. States that a CT scan of his chest showed his aneurysm at 4.2 cm. Reports chest pain increased over the last week. he was given NTG in the ED with no relief. He took his home pain medications with no relief. Cardiology consulted for evaluation of persistent chest pain. Prior cardiac testing: -Echo in 03/15/18 showing EF of 60-65%, mild diastolic dysfunction. -Stress test 03/2018 was negative for ischemia or infarct. EF >70% -Outpatient records of [facility] in 2013 show non obstructive CAD with 20-40% stenosis. (Per prior cardio consult) Past Med Surg Social Fam HX - Past Medical History Medical history: COPD, coronary artery disease, GERD, glaucoma, hyperlipidemia, hypertension, thyroid disease Additional medical history: gastropatesis, vitamin d deficiency, anorexia, BPH, neuritis Psychiatric history: anxiety, depression - Past Surgical History Surgical History: cholecystectomy, orthopedic, other Additional surgical history: Back Surgery - Social History Smoking Status: Current every day smoker Smokeless Tobacco Status: No Alcohol use: none Drug use: none - Family History Father Race: Family Member Ethnicity: Non- Living Status: Age at : 77 Cause of : Brain tumor Hx Family Cancer: Yes (Brain tumor) Brother Race: Family Member Ethnicity: Non- Living Status: Age at : 72 Cause of : [place] Hx Family Cardiac Disorders: Yes ([place]) Sister Race: Family Member Ethnicity: Non- Living Status: Still Living Hx Family Medical Disorders: No Son Race: Family Member Ethnicity: Non- Living Status: Age at : 38 Cause of : Colon cancer Hx Family Cancer: Yes (Colon) Mother Adopted: No Race: Family Member Ethnicity: Non- Living Status: Age at : 85 Cause of : [place] Hx Family Cardiac Disorders: Yes ([place]) Hx Family Respiratory Disorders: No Hx Family Cancer: Yes Hx Family GI Disorders: No Hx Family Endocrine Disorder: No Hx Family Neuromuscular Disorders: No Hx Family Neurologic Disorders: No Hx Family HEENT Disorders: No Hx Family Autoimmune Disorders: No Medications and Allergies Atorvastatin [Lipitor] 40 mg PO HS 04/26/16 [History] Docusate [Colace] 100 mg PO HS PRN 04/26/16 [History] Megestrol Acetate [Megace] 40 mg PO DAILY 04/26/16 [History] Nitroglycerin [Nitrostat] 0.4 mg SL AD PRN 04/26/16 [History] Quetiapine Fumarate [Seroquel] 100 mg PO HS 04/26/16 [History] Sertraline [Zoloft] 100 mg PO DAILY 04/26/16 [History] Zolpidem [Ambien] 10 mg PO HS 04/26/16 [History] Albuterol Sulfate [Albuterol Inhaler] 2 puff IH Q4-6H PRN 07/23/17 [History] Aspirin Enteric Coated [Aspirin EC] 81 mg PO DAILY #30 tablet. 07/24/17 [Rx] Metoprolol [Lopressor] 12.5 mg PO BID #60 tab 07/24/17 [Rx] Methadone 5 mg PO Q8HR 04/14/18 [History] Oxycodone HCl/Acetaminophen [Percocet 5-325 mg Tablet] 2 tab PO TID PRN [History] Esomeprazole Magnesium [Nexium] 40 mg PO DAILY 06/09/18 [History] Latanoprost [Xalatan] 1 drop BOTH EYES DAILY 06/09/18 [History] Lipase/Protease/Amylase [Enrrique Kennedy 24,000 Units Capsule] 2 cap PO BID 06/09/18 [ History] Potassium Chloride [K-Tab ER] 10 meq PO DAILY 06/09/18 [History] Salmeterol Xinafoate [Serevent Diskus] 1 puff IH BID 06/09/18 [History] 3 Allergy/AdvReac Type Severity Reaction Status Date / Time codeine AdvReac Dizziness Verified 06/09/18 11:40 sucralfate [From Carafate] AdvReac Gastrointestinal Verified 06/09/18 11:40 Upset All Systems Review: The remainder of the systems were reviewed and are negative Physical Examination Vital Signs, Last 4 Hours Resp BP 06/09/18 13:40 16 118/82 General: Conversant, No Apparent Distress HEENT: Atraumatic, Normocephaly, Mucus Membranes Moist Neck: No JVD, Normal carotid pulses Cardiac: Reg Rate and Rhythm, Normal S1 and S2, No Murmur Lungs: Normal Breath Sounds, No Wheeze, Rales, Rhonchi Neuro: Alert and responsive, No focal deficits noted Abdomen: Soft, Non-Tender Skin: No rashes noted on visualized skin Musculoskeletal: No Chest Wall Tenderness Extremities: No Clubbing, No Cyanosis, No Edema, Normal Pulses Results 06/09/18 14:30 06/09/18 11:16 - Imaging and Cardiology Stress Test: report reviewed Echo: report reviewed - EKG Interpretation EKG results cardiology: personally reviewed (Sr with no acute ST changes.) Consult Discharge Plan - Plan Referrals: Lilly Valdez, [employer] [Primary Care Provider] - <Chris Amin - Last Filed: 06/09/18 17:23> Date of Encounter: 06/09/18 - Attending Attestation I have personally performed a face to face evaluation on this patient. I have reviewed and agree with the care plan. History and Exam by me shows: CC: Chest pain HPI: Pt complains of sudden onset mid sternal chest pain while at rest late this morning. Pain is mid epigastric, radiates into left shoulder, associated with mild nausea and diaphoresis, no shortness of breath. Pain started approximately February 08, 2018, has undergone multiple evaluations since then without identified cause being determined. He has undergone echocardiography and stress imaging, both reportedly normal, but continues to experience chest pain. d ROS: reviewed PMH: reviewed PE: pt seen and examined, agree with findings as documented. IMP/Plan 1. Chest pain, ongoing, discussed options, recommend LHC, discussed Risks and benefits of invasive strategy, pt agrees to proceed. 2. CAD: moderate obstruction [facility] 2013 3. Tobacco abuse, ongoing, continues to smoke against medical advice 4. hypertension: controlled on current meds. Assessment and Plan Discussion w patient/family: The assessment and plan as outlined above was discussed with the patient and/or family members who expressed understanding and agreement. All questions were answered. Thank you for involving us in the care of your patient. Please call with any questions. History of Present Illness History of present illness: Mr. Crain is a 82 year old male All Systems Review: The remainder of the systems were reviewed and are negative Physical Examination Vital Signs, Last 4 Hours Temp Pulse Resp BP Pulse Ox 06/09/18 14:49 97.9 F 64 18 130/76 99 Results 06/09/18 14:30 06/09/18 11:16 Lab Results 06/09/18 06/09/18 14:30 14:30 WBC 4.9 Hgb 12.6 L Hct 37.7 Plt Count 145 INR 1.1
[2018-06-09] MEDS ORDERED: *HR* Heparin 10,000 UNIT/10 ML VIAL ONE (14:46)
[2018-06-09] MEDS ORDERED: Heparin 1,000 UNITS/500 mL 500 ML ONE (14:46)
[2018-06-09] MEDS ORDERED: ISOVUE-370 200 ML INFUS..BTL IV ONE (14:46)
[2018-06-09] MEDS ORDERED: 0.9 % Sodium Chloride 1,000 ML ONE ×2 (14:46→15:04)
[2018-06-09 14:47] LABS: Basophils % 0.4 %; Eosinophils # 0.1 K/mcL (0.0-0.6); Eosinophils % 1.4 %; Hematocrit 37.7 % (37.5-50.1); Hemoglobin 12.6 g/dL (12.9-16.9); Immature Granulocytes % 0.2 % (0-4); Lymphocytes # 1.7 K/mcL (0.6-4.6); Lymphocytes % 33.9 %; Mean Corpuscular HGB Conc 33.4 g/dL (31.6-35.5); Mean Corpuscular Hemoglobin 32.6 pg (28.0-33.3); Mean Corpuscular Volume 97.7 fL (83.0-100.0); Mean Platelet Volume 11.3 fL (9.4-12.4); Monocytes # 0.5 K/mcL (0.0-1.3); Monocytes % 9.6 %; Neutrophils # 2.7 K/mcL (1.6-8.9); Platelet Count 145 K/mcL (140-400); Red Blood Count 3.86 M/mcL (4.19-5.50); Red Cell Distribution Width 12.9 % (11.5-14.5); Segmented Neutrophils % 54.5 %
[2018-06-09] MEDS ORDERED: Nitroglycerin 1,000 MCG/10 ML VIAL IV ONE (14:47)
[2018-06-09 14:49] LABS: Heparin anti-factor XA UFH 0.03 IU/mL (0.30-0.70)
[2018-06-09 14:50] LABS: INR 1.1; Prothrombin Time 12.3 Seconds (9.4-12.1)
--- NOTE | 2018-06-09 15:02 | Event Note ---
Date of Encounter: 06/09/18 Time of Encounter: 15:00 Was asked to see patient regarding CODE STATUS. Patient previously had elected CODE STATUS to be DNR CC a with no intubation. After discussing with his family patient opted to change CODE STATUS to full code. He is alert and oriented, of some mind. Appears to have decision-making capacity. CODE STATUS changed to full code
[2018-06-09] MEDS ORDERED: *HR* FentaNYL (PF) 100 MCG/2 ML VIAL ONE (15:25)
[2018-06-09] MEDS ORDERED: *HR* Midazolam HCl 2 MG/2 ML VIAL ONE (15:25)
--- NOTE | 2018-06-09 15:58 | Event Note ---
Date of Encounter: 06/09/18 Time of Encounter: 15:56 - Cardiology Event Note C completed for concerns of unstable angina. Mild plaque. No intervention warranted. Cardiology signing off. Reconsult PRN. Continue ASA, Statin, BB.
[2018-06-09] MEDS ORDERED: Albuterol 2.5 MG/3 ML NEBULIZER IH SCH (16:00)
[2018-06-09] MEDS: Albuterol 2.5 MG/3 ML NEBULIZER AER SCH ×2 (16:12→22:15)
--- NOTE | 2018-06-09 16:14 | Pre-Sedation Evaluation ---
Pre-sedation evaluation - Pre-sedation checklist Date of procedure: 06/09/18 Procedure: [facility] Recent Vitals: Last Vital Signs Temp 97.9 F 06/09/18 14:49 Pulse 64 06/09/18 14:49 Resp 18 06/09/18 14:49 BP 130/76 06/09/18 14:49 Pulse Ox 99 06/09/18 14:49 H&P (including ROS) documented in medical record: Yes Previous reaction to sedatives/anesthetics: No Dietary Status: NPO 6 hours prior to procedure Airway Assessment: Patient can open mouth completely, TMJ function normal, Micrognathia (under-bite, receding chin) absent, Neck with adequate range of motion Dentition: dentures removed Possible difficult airway: No ASA Classification *see protocol: CLASS II-Mild systemic disease Plan of Care: Pt appropriate candidate for procedure/moderate/conscious sedation , Risks/benefits of procedure/sedation discussed w/ patient/family Cardiac Registry (Cardio Only) - Functional Capacity Functional Capacity: < 4 METS - Clincal Frailty Scale Clinical Frailty Scale: Mildly Frail
[2018-06-09] MEDS: *HR* OxyCODONE/APAP 5/325 TABLET PO PRN (20:05)
[2018-06-09] MEDS ORDERED: NON-FORMULARY MEDICATION 1 EACH EACH (Salmeterol Xinafoate [Serevent Diskus] 1 PUFF) IH SCH (21:00)
--- NOTE | 2018-06-09 22:00 | Electrocardiograph Report ---
[place] [facility] Test Date: 2018-06-09 Pat Name: Jason Crain Department: Room: 3B63 Gender: M Oncology Social Work: : 1935 Requested By: Kandy Shen Order Number: [id number] Reading MD: Marlon Mcknight Measurements Intervals [place] Rate: 83 P: 52 MA: 165 QRS: 74 QRSD: 111 T: 69 QT: 383 QTc: 450 Interpretive Statements Sinus rhythm Atrial premature complex Electronically Signed On 06-09-2018 21:58:14 EDT by Marlon Mcknight
[2018-06-09] MEDS: *HR* Heparin 5,000 UNIT/ML VIAL SQ SCH (22:36)
[2018-06-10] MEDS: Albuterol 2.5 MG/3 ML NEBULIZER AER SCH ×2 (04:15→10:51)
[2018-06-10] MEDS: *HR* Heparin 5,000 UNIT/ML VIAL SQ SCH (05:52)
[2018-06-10 06:12] LABS: Basophils % 0.2 %; Eosinophils # 0.1 K/mcL (0.0-0.6); Hematocrit 36.1 % (37.5-50.1); INR 1.1; Immature Granulocytes % 0.2 % (0-4); Lymphocytes # 1.6 K/mcL (0.6-4.6); Lymphocytes % 34.8 %; Mean Corpuscular HGB Conc 33.2 g/dL (31.6-35.5); Mean Corpuscular Hemoglobin 32.3 pg (28.0-33.3); Mean Platelet Volume 11.8 fL (9.4-12.4); Monocytes # 0.5 K/mcL (0.0-1.3); Neutrophils # 2.3 K/mcL (1.6-8.9); Platelet Count 123 K/mcL (140-400); Prothrombin Time 12.8 Seconds (9.4-12.1); Red Blood Count 3.72 M/mcL (4.19-5.50); Segmented Neutrophils % 51.8 %
[2018-06-10 06:15] LABS: Activated Partial Thrombo Time 34.2 Seconds (26.0-36.0)
[2018-06-10 06:32] LABS: Alanine Aminotransferase 8 Units/L (7-52); Albumin 3.9 g/dL (3.5-5.7); Albumin/Globulin Ratio 1.6 (1.1-2.2); Alkaline Phosphatase 69 Units/L (34-104); Aspartate Amino Transferase 16 Units/L (13-39); BUN/Creatinine Ratio 21 (6-26); Bilirubin,Total 0.4 mg/dL (0.3-1.0); Blood Urea Nitrogen 13 mg/dL (8-23); Calcium 9.1 mg/dL (8.6-10.3); Carbon Dioxide 25 mEq/L (23-29); Chloride 108 mEq/L (98-107); Chol/HDL Ratio 3.7 (0-4.9); Cholesterol 143 mg/dL (< 200); Globulin 2.5 g/dL (2.4-3.5); Glucose 88 mg/dL (70-105); HDL Cholesterol 39 mg/dL (40-59); LDL Cholesterol,Calculated 88 mg/dL (0-99); Osmolality,Calculated 288 (280-300); Potassium 3.9 mEq/L (3.5-5.1); Sodium 139 mEq/L (136-145); Total Protein 6.4 g/dL (6.4-8.9); Triglycerides 82 mg/dL (< 150); eGFR For Non-African Americans > 60 (> 60)
[2018-06-10 06:42] LABS: Thyroid Stimulating Hormone 1.119 mcIU/mL (0.340-5.600)
[2018-06-10] MEDS ORDERED: Latanoprost 2.5 ML BOTTLE BOTH EYES SCH (09:00)
[2018-06-10] MEDS ORDERED: Aspirin Enteric Coated 81 MG Tablet PO SCH (09:00)
[2018-06-10] MEDS: *HR* OxyCODONE/APAP 5/325 TABLET PO PRN (09:49)
[2018-06-10 11:54] VITALS: BP 109/70
--- NOTE | 2018-06-10 13:25 | Discharge Summary ---
- NOTES TO OUTPATIENT PROVIDER Notes to Outpatient Provider: none Orders not resulted at time of discharge: Pending orders 06/11/18 04:00 Complete Blood Count [HEME] AM 0400 06/12/18 04:00 Complete Blood Count [HEME] AM 0400 06/13/18 04:00 Complete Blood Count [HEME] AM 0400 06/14/18 04:00 Complete Blood Count [HEME] AM 0400 Date of Encounter: 06/10/18 Time of Encounter: 11:00 - Discharge Diagnosis (1) Tobacco abuse Priority: Secondary Status: Chronic (2) COPD (chronic obstructive pulmonary disease) Priority: Secondary Status: Chronic Qualifiers: COPD type: unspecified COPD Qualified Code(s): J44.9 - Chronic obstructive pulmonary disease, unspecified (3) Chest pain Priority: Secondary Status: Acute Qualifiers: Chest pain type: unspecified Qualified Code(s): R07.9 - Chest pain, unspecified (4) HLD (hyperlipidemia) Priority: Secondary Status: Chronic Qualifiers: Hyperlipidemia type: pure hypercholesterolemia Qualified Code(s): E78.00 - Pure hypercholesterolemia, unspecified; E78.0 - Pure hypercholesterolemia (5) HTN (hypertension) Priority: Secondary Status: Chronic Qualifiers: Hypertension type: essential hypertension Qualified Code(s): I10 - Essential (primary) hypertension (6) Nausea and vomiting Priority: Secondary Status: Acute Qualifiers: Vomiting type: cyclical vomiting Vomiting Intractability: non-intractable Qualified Code(s): G43.A0 - Cyclical vomiting, not intractable (7) CAD (coronary artery disease) Priority: Primary Status: Chronic Qualifiers: Coronary Disease-Associated Artery/Lesion type: unspecified vessel or lesion type [place] vs. transplanted heart: [place] heart Associated angina: angina presence unspecified Qualified Code(s): I25.10 - Atherosclerotic heart disease of [place] coronary artery without angina pectoris (8) GERD (gastroesophageal reflux disease) Priority: Secondary Status: Chronic Qualifiers: Esophagitis presence: with esophagitis Qualified Code(s): K21.0 - Gastro- esophageal reflux disease with esophagitis (9) Thyroid disease Priority: Secondary Status: Chronic Hospital course: Patient is an 82-year-old male with past medical history significant for COPD, CAD, GERD, glaucoma, HLD, HTN, and thyroid disease presents from the ER with chief complaint of chest pain for the past 2-3 days. Patient was admitted to the medical surgical floor for ACS rule out. Cardiology was consulted with recommendation for left heart catheterization which showed mild plaque. Recommendations from cardiology for patient to continue aspirin, statin and beta eliezer. Patient will follow up with primary care provider. - Time Spent with Patient Total time spent providing and/or coordinating discharge services: Less than 30 minutes - Discharge Medications Home Medications: Atorvastatin [Lipitor] 40 mg PO HS 04/26/16 [History] Docusate [Colace] 100 mg PO HS PRN 04/26/16 [History] Megestrol Acetate [Megace] 40 mg PO DAILY 04/26/16 [History] Nitroglycerin [Nitrostat] 0.4 mg SL AD PRN 04/26/16 [History] Quetiapine Fumarate [Seroquel] 100 mg PO HS 04/26/16 [History] Sertraline [Zoloft] 100 mg PO DAILY 04/26/16 [History] Zolpidem [Ambien] 10 mg PO HS 04/26/16 [History] Albuterol Sulfate [Albuterol Inhaler] 2 puff IH Q4-6H PRN 07/23/17 [History] Aspirin Enteric Coated [Aspirin EC] 81 mg PO DAILY #30 tablet. 07/24/17 [Rx] Metoprolol [Lopressor] 12.5 mg PO BID #60 tab 07/24/17 [Rx] Methadone 5 mg PO Q8HR 04/14/18 [History] Oxycodone HCl/Acetaminophen [Percocet 5-325 mg Tablet] 2 tab PO TID PRN [History] Esomeprazole Magnesium [Nexium] 40 mg PO DAILY 06/09/18 [History] Latanoprost [Xalatan] 1 drop BOTH EYES DAILY 06/09/18 [History] Lipase/Protease/Amylase [Enrrique Kennedy 24,000 Units Capsule] 2 cap PO BID 06/09/18 [ History] Potassium Chloride [K-Tab ER] 10 meq PO DAILY 06/09/18 [History] Salmeterol Xinafoate [Serevent Diskus] 1 puff IH BID 06/09/18 [History] Allergies/Adverse Reactions: 3 Allergy/AdvReac Type Severity Reaction Status Date / Time codeine AdvReac Dizziness Verified 06/09/18 11:40 sucralfate [From Carafate] AdvReac Gastrointestinal Verified 06/09/18 11:40 Upset Date of admission: 06/09/18 13:54 Primary care physician: Lilly Valdez CNP - Constitutional Vitals: Temp Pulse Resp BP Pulse Ox 98.0 F 62 18 109/70 96 06/10/18 11:53 06/10/18 11:53 06/10/18 11:53 06/10/18 11:53 06/10/18 11:53 General appearance: Present: cooperative, mild distress (CP), A&O X 3, pleasant , underweight, answers questions appropriately - Respiratory Respiratory exam: Present: CTAB. Absent: accessory muscle use, rales, rhonchi, wheezes - Cardiovascular Cardiovascular exam: Present: RRR, +S1, +S2. Absent: diastolic murmur, gallop, rubs, systolic murmur - Patient Status Disposition: Home, Self-Care Condition: Good - Discharge Instructions Instructions: Chest Pain (DC), How to Stop Smoking (DC), Chronic Obstructive Pulmonary Disease (DC) Follow Up With: Lilly Valdez CNP [Primary Care Provider] - 06/17/18 9:00 am
--- NOTE | 2018-07-01 14:46 | Invasive Diagnostic Lab Proc ---
Name: Jason Crain Date of Study: 06/09/2018 Date: 1935 Ht: 70.9in Medical Record#: [id number] Age: 82 Wt: 149.91lb Gender: Male BSA: 1.86 Order #: [id number] BMI: 20.99 Physicians Procedure Physician: Monika Roblero MD, [facility] Referring MD: Referring MD: Staff Name Position Time In Taryn Mancini RT (R) Scrub 03:01 PM CaraAgustina RT (R) Monitor 03:01 PM Cheryl Dumas RN Accounts Receivable Executive 03:01 PM Mabel Aldridge RN Nurse 03:55 PM Indications Indication Unstable Angina Procedures Performed Procedure L HRT ARTERY/VENTRICLE ANGIO Pre-Procedure Checklist Informed consent is complete signed and on chart. H&P is on chart. ID band is on and ID verified with patient. Patient NPO for procedure The procedure was described for the patient and questions were answered. ECG is on chart. Plan of Care Patient will tolerate the procedure without complications. Adequate level of comfort will be maintained. Hemodynamics will remain stable Patient will recover from procedure without complications. Respiratory function will be maintained. Cardiac rhythm will remain stable. Patient temperature will be maintained. Patient and/or family have verbalized understanding of the procedure. Patient Education Chief Complaint/Reason for Test: Cardiac Cath Developmental Category: Geriatric (65+ years) Developmentally Appropriate for Age: Yes Learning Barriers: None Education Needs: Procedure Education Method: Verbal Information Taught: Cardiac Cath Educational Evaluation: Able to repeat information Intravenous Access Time IV Size Location DC'd Fluid/Drip Rate Units RN 18g 1 10/30" Patent On Arrival Rt Arm Allergies CODEINE-NAUSEA No Known Allergies sucralfate codeine Vital Signs Time BP (mmHg) HR (bpm) O2 Sat. RR (bpm) LOC 118 / 82 69 95 % 16 03:24 PM / % 5 = Fully awake and oriented or at pre-proc level 03:24 PM / % 4 = Oriented but drowsy 03:39 PM / % 4 = Oriented but drowsy 03:23 PM 162 / 99 62 % 20 03:28 PM 147 / 75 61 100 % 20 03:33 PM 137 / 79 60 100 % 20 03:38 PM 132 / 73 62 100 % 24 03:43 PM 133 / 76 64 100 % 18 03:48 PM 143 / 73 60 100 % 14 Procedural Medications Time Medication Dose Units Method Given By 03:23 PM Oxygen 2 L/min nasal cannula Cheryl Dumas RN 03:27 PM Versed 1 mg Intravenous Cheryl Dumas RN 03:27 PM Fentanyl 25 mcg Intravenous Cheryl Dumas RN 03:34 PM Lidocaine 2% 14 ml Subcutaneous Monika Roblero MD, [facility] Mikal Score Preprocedure Postprocedure Activity 2- Moves 4 extremities sustained head lift Activity 2- Moves 4 extremities sustained head lift Circulation 2- SBP +/= 20 points of pre-anesthetic level Circulation 2- SBP +/= 20 points of pre-anesthetic level Consciousness 2- Awake and alert oriented x 3 Consciousness 2- Awake and alert oriented x 3 O2 Saturation 2- Able to maintain O2 satruation of 92% on room air O2 Saturation 2- Able to maintain O2 satruation of 92% on room air Respiratory 2- Able to deep breathe and cough well Respiratory 2- Able to deep breathe and cough well Total Score 10 Total Score 10 Contrast Agent: Isovue Diagnostic Contrast: 61 ml Total Contrast: 61 ml Fluoro Dose: 2311 mGy Procedure Log Time Note Enter By 02:53 PM CathStat 03:01 PM Taryn Mancini RT (R) Position: Scrub Time in: 15: 03:01 PM Agustina Marroquin RT (R) Position: Monitor Time in: 15: 03:01 PM Cheryl Dumas RN Position: Accounts Receivable Executive Time in: 15: 03:01 PM Patient charges- Angio tray pack, Navilyst 3mm J, Pulse Oximetry and ACIST tubing and transducer :22 PM Vitals capture started with the following parameters, Patient=Adult, Interval=5 min, Initial Cqgynqhe=836 mmHg, Deflation Rate=5 mmHg, Cuff placed on Right Arm 03:22 PM Recorded ECG: HR=63 Condition=Condition 1 03:23 PM Case Start 03:23 PM Pt arrived to lab clerk 2 at 15:23 :23 PM Physician arrived 15::23 PM Meet and greet completed :23 PM Sign in performed according to hospital policy. :23 PM Procedure start 15:23 :23 PM HR=62 bpm, XKCS=473/99 mmhg, Resp=20 B/min, Comment=NSR 03:23 PM Time: 15:23 Oxygen on at 2 L/min per nasal cannula by Cheryl Dumas RN 03:24 PM Time: 15:24 Patient comfortable and pain free: Yes dsp:24 PM Time: 15:24LOC: 5 = Fully awake and oriented or at pre-proc level dspell 03:24 PM Clinical Presentation: Unstable angina 03: PM Time: 15: Versed 1 mg Intravenous Given by Cheryl Dumas RN kristina : PM Time: 15: Fentanyl 25 mcg Intravenous [facility] 03: PM Clinical Presentation: Unstable angina dsp 03: PM HR=61 bpm, AYIO=153/75 mmhg, SgO8=035.0 %, Resp=20 B/min, Comment=NSR 03:33 PM HR=60 bpm, ZHPG=320/79 mmhg, LlL6=516.0 %, Resp=20 B/min, Comment=NSR 03:33 PM Time out performed according to hospital policy 03:34 PM Time: 15:34 14 ml Lidocaine 2% to left groin Subcutaneous Given by Monika Roblero MD, [facility] dspell 03:36 PM Access obtained by percutaneous puncture. 5Fr 10cm Terumo [place] sheath placed in left Femoral artery. [id number] dspell 03:36 PM 5Fr FL 4 catheter inserted over the wire [facility] 03:36 PM 0.035 145cm Navilyst 3mmJ wire [id number] dspell 03:36 PM LCA angiography performed in multiple views. 03:38 PM HR=62 bpm, HVCS=447/73 mmhg, DcF1=431.0 %, Resp=24 B/min, Comment=NSR 03:39 PM Time: 15:24LOC: 4 = Oriented but drowsy dsp 03:39 PM Time: 15:24 Patient comfortable and pain free: Yes dspell 03:39 PM Catheter removed dspell 03:39 PM 5Fr FR 4 catheter inserted over the wire [facility] 03:40 PM RCA angiography performed in multiple views. dspell 03:42 PM Catheter removed dspell 03:42 PM 5Fr Pigtail catheter inserted over the wire [facility] dspell 03:42 PM Catheter selectively placed in left ventricle dspell 03:42 PM Bolus angiogram of left Ventricle complete: 8 ml/sec for a total of 24 mls dspell 03:43 PM HR=64 bpm, UKEJ=201/76 mmhg, VuI7=219.0 %, Resp=18 B/min, Comment=NSR 03:43 PM Pressure channel 1 zeroed. 03:44 PM Recorded Pressure: LV, HR=62, Condition=Condition 1 (Left Ventricle) LV 132/-10/8 03:44 PM Recorded Pressure: LV, Ao, HR=62, Condition=Condition 1 (Left Ventricle) LV 112/-3/12, (Aorta) Ao 119/76/96 03:44 PM Catheter removed dspell 03:45 PM Recorded Pressure: Ao, HR=63, Condition=Condition 1 (Aorta) Ao 142/65/94 03:46 PM Coronary Dominance: Left dspell 03:46 PM Procedure completed at 15:46 06/09/2018 dspell 03:47 PM Did you address SIMONE flow and Dominance? Yes dspell 03:47 PM Sign out completed: Radiation Dose 161.64 mGy, 2311.39 cGy/cm2 Fluoro Time: 3.8 Isovue 370 - 200ml contrast 61 ml given by Monika Roblero MD, [facility]. Complications: NoneCardiac Rehab Consult needed: YesConfirmed administered medications: Yes dspell 03:48 PM HR=60 bpm, ENEV=055/73 mmhg, GrS3=688.0 %, Resp=14 B/min, Comment=NSR 03:48 PM Isovue 370 - 200ml,1 Bottle(s) used. dspell 03:48 PM Arterial sheath pulled, Mynx closure device used and was Successful [id number] S/N. dspell 03:49 PM Estimated Blood Loss: minimal dspellman 03:49 PM Post ECG NSR dspellman 03:49 PM Post Blood Pressure 143/73 dspellman 03:49 PM 15:49 Post Pulses Left DP & PT 2+ dspellman 03:50 PM 15:49 Post Pulses Right DP & PT 1+ dspellman 03:50 PM Information taught Cardiac Cath dspell 03:50 PM Education needs Procedure, Plan of Care, and Responsibilities of Patient in Care dspellman 03:50 PM Learning barriers :None dspellman 03:50 PM Education Methods Verbal dspellman 03:50 PM Education evaluation Able to repeat information dspell 03:50 PM Site status No bleeding/hematoma - Lt Groin as reported by Monika Roblero MD, FACC at 15:50 dspellman 03:51 PM Opsite applied dspell 03:51 PM Family placed not available. dspellman 03:51 PM Complications: None dspell 03:53 PM Vitals capture stopped. 03:54 PM Time: 15:39 Patient comfortable and pain free: Yes dspell 03:54 PM Time: 15:39LOC: 4 = Oriented but drowsy dspellman 03:54 PM Report given to Tawana ANDREA Pt taken to 3B Room #63. 15:54 dspellman 03:55 PM Mabel Aldridge RN Position: Nurse Time in: 15:55 dspellman 03:56 PM Patient out of room: 15:56 dspellman 03:57 PM Lesion found in Mid LMCA. Pre Stenosis: 25 Pre SIMONE Flow: 3: Complete and Brisk Flow/Perfusion dspellman 03:59 PM Lesion found in Proximal LAD. Pre Stenosis: 25 Pre SIMONE Flow: 3: Complete and Brisk Flow/Perfusion dspellman 03:59 PM Lesion found in Mid LAD. Pre Stenosis: 30 Pre SIMONE Flow: 3: Complete and Brisk Flow/Perfusion dspellman 03:59 PM Lesion found in 1st Diagonal. Pre Stenosis: 20 Pre SIMONE Flow: 3: Complete and Brisk Flow/Perfusion dspellman 03:59 PM Lesion found in Mid Circumflex. Pre Stenosis: 25 Pre SIMONE Flow: 3: Complete and Brisk Flow/Perfusion dspellman 04:00 PM Left Main Coronary Artery with 25% stenosis dspellman 04:00 PM Proximal Left Anterior Descending Coronary Artery with 25% stenosis. If graft is supplying this territory, 0 % stenosis. dspellman 04:00 PM Mid/Distal Left Anterior Descending Coronary Artery and diagonal branches with 30% stenosis. If graft is supplying this area, 0 % stenosis dspellman 04:00 PM Circumflex, Obtuse Marginal, Left Posterior Descending, and Left Posterolateral Coronary Arteries with 25 % stenosis. If graft is supplying this area, 0 % stenosis [facility] Complications Complication None None Hemodynamics Pressures Site Systolic/A Wave Diastolic/V Wave Mean LV 132 -10 8 LV 112 -3 12 AO 119 76 96 AO 142 65 94 Post Procedure Information Blood Pressure: 143/73 mmHg Rhythm: NSR Post procedural instructions were given Closure Device Time Device Success/Fail 06/09/2018 3:55:00 PM MynxGrip Successful Site Checks Time Location Status Staff Sheath In? Note 03:50 PM Lt Groin No bleeding/hematoma Monika Roblero MD, [facility] Pulses Time Site Pre-Procedure Post-Procedure Note 3:49:00 PM Left DP & PT 2+ 3:49:00 PM Right DP & PT 1+ Updated by Agustina Marroquin RT (R) on 06/09/2018 4:02:56 PM RT Cinthia electronically signed on 07/01/2018 2:39:33 PM with status of Final
== END 2018-06-10 13:59 | disposition home or self-care (01) | DRG 287 ==
LOC: 3BNU 10:48 → EMEROOARM 10:48 → SUATTDRO 13:54 → 3BNU 13:56
PROVIDERS: ADMIT Internal Medicine; ATTEND Hospitalist

== ENCOUNTER 2019-05-22 10:44 | Observation (INO) ==
--- NOTE | 2019-05-22 10:54 | Emergency Department Note ---
Disposition Clinical Impression: Neurological symptoms Chest pain Qualifiers: Chest pain type: unspecified Qualified Code(s): R07.9 - Chest pain, unspecified Disposition: Admitted As Inpatient Condition: Fair Time of Disposition: 12:42 General Adult HPI - General Chief complaint: ED Chest Pain Stated complaint: chest pain Time Seen by Provider: 05/22/19 10:48 Source: patient, EMS Mode of arrival: EMS Limitations: no limitations Nursing Notes Reviewed: Yes Vital Signs Reviewed: Yes - History of Present Illness HPI Narrative: Patient is an 83-year-old male that presents emergency Department with chest pain that is been intermittent over the past 2-3 days. Patient states that the pain is located in the left side of his chest and radiates into his left neck and jaw and down his left arm. Patient states that he has never had a heart attack before but has been prescribed nitroglycerin. Patient states that he is currently chest pain-free. EMS did give him aspirin in route. Patient states that he does get short of breath with this chest pain. Patient also reports nausea and diaphoresis. Patient states that he had an EKG about a week ago and was told that there was elevation in either come to the hospital but did not come until today. Patient denies using any of his nitroglycerin at home. P atient also reported about 3 weeks ago he started having some weakness to his left upper and lower extremity as well as some numbness to the left side of his face. Patient states that he has never had this before. Denies having a history of a stroke. Pain Scale: 0 - Related Data Home Medications Medication Instructions Recorded Confirmed Atorvastatin [Lipitor] 40 mg PO HS 04/26/16 05/22/19 Docusate [Colace] 100 mg PO HS PRN 04/26/16 05/22/19 Nitroglycerin [Nitrostat] 0.4 mg SL AD PRN 04/26/16 05/22/19 Quetiapine Fumarate [Seroquel] 100 mg PO HS 04/26/16 05/22/19 Sertraline [Zoloft] 100 mg PO DAILY 04/26/16 05/22/19 Zolpidem [Ambien] 10 mg PO HS 04/26/16 05/22/19 Methadone 5 mg PO Q8HR 04/14/18 05/22/19 Oxycodone HCl/Acetaminophen 2 tab PO TID PRN 04/14/18 05/22/19 [Percocet 5-325 mg Tablet] Esomeprazole Magnesium [Nexium] 40 mg PO DAILY 06/09/18 05/22/19 Latanoprost [Xalatan] 1 drop BOTH EYES DAILY 06/09/18 05/22/19 Lipase/Protease/Amylase [Creon Dr 2 cap PO BID 06/09/18 05/22/19 24,000 Units Capsule] Salmeterol Xinafoate [Serevent 1 puff IH BID 06/09/18 05/22/19 Diskus] Allergies Allergy/AdvReac Type Severity Reaction Status Date / Time codeine AdvReac Dizziness Verified 06/09/18 11:40 sucralfate [From Carafate] AdvReac Gastrointestinal Verified 06/09/18 11:40 Upset All systems ED: reviewed and negative except as stated. Constitutional: Denies: fever Cardiovascular: Reports: chest pain Respiratory: Reports: dyspnea Gastrointestinal: Reports: nausea Musculoskeletal: Reports: neck pain, other (Pain in the left arm) Neurological: Denies: weakness, numbness, paresthesias Past Medical History - Past Medical History Medical history: Reports: COPD, coronary artery disease, GERD, glaucoma, hype rlipidemia, hypertension, thyroid disease Surgical history: Reports: cholecystectomy, orthopedic, other Psychiatric history: Reports: anxiety, depression - Social History Smoking Status: Current every day smoker Smokeless Tobacco Status: No Alcohol use: Reports: none Drug use: Reports: none Physical Exam - General Limitations: no limitations General appearance: alert, in no apparent distress - Head Head exam: atraumatic, normocephalic - Eye Eye exam: Present: normal appearance, EOMI - Neck Neck exam: Present: normal inspection, full ROM, trachea midline - Respiratory Respiratory exam: Present: normal lung sounds bilaterally. Absent: respiratory distress, wheezes - Cardiovascular Cardiovascular exam: Present: regular rate, normal rhythm, normal heart sounds, +S1, +S2 - Abdominal Exam Abdominal exam: Present: soft, Non-Tender, normal bowel sounds - Neurological Exam Neurological exam: Present: alert, oriented X3 - Expanded Neurological Exam Cranial nerves: EOM function (II, III, IV, ): Normal, facial sensation (V): N ormal, facial palsy (VII): Normal, gag reflex (IX): Normal, spinal accessory function (XI): Normal, tongue deviation (XII): Normal Motor strength - LUE: 5/5 Motor strength - RUE: 5/5 Motor strength - LLE: 4/5 Motor strength - RLE: 5/5 Upper motor neuron exam: pronator drift: Present on left Sensory exam upper extremity: light touch: Normal Sensory exam lower extremity: light touch: Normal Coma Scale Eye Opening: Spontaneous Coma Scale Motor Response: Obeys Commands Coma Scale Verbal Response: Oriented Coma Scale Total: 15 - Psychiatric Psychiatric exam: Present: normal affect, normal mood - Skin Skin exam: Present: warm, dry, intact Course Vital Signs Temperature 98.5 F 05/22/19 10:46 Pulse Rate 76 05/22/19 10:46 Respiratory Rate 16 05/22/19 10:46 Blood Pressure 182/92 05/22/19 10:46 O2 Sat by Pulse Oximetry 99 05/22/19 10:46 Temperature 98.5 F 05/22/19 10:46 Pulse Rate 68 05/22/19 11:13 Respiratory Rate 18 05/22/19 11:13 Blood Pressure 154/132 05/22/19 11:13 O2 Sat by Pulse Oximetry 98 05/22/19 11:13 Oxygen Delivery Oxygen Delivery Room Air Medical Decision Making - MDM Narrative Medical decision making narrative: Due the patient is not emergency Department with reports of chest and we will obtain basic laboratory testing, chest x-ray and EKG. Patient did receive aspirin and routes we will not give him another dose here in the emergency department. The patient was chest pain-free upon arrival to no nitroglycerin will be administered. Due to the patient's past medical history and his presentation I feel that is the most appropriate for him to be admitted to the hospital for further evaluation and management. Patient has initial heart score of 5. This is prior to his troponin being resulted. Due the patient also having reports of weakness the left side a CT scan of the head was also obtained. Patient's EKG did not show any acute ischemic changes. Laboratory testing is relatively unremarkable with a negative troponin. Patient will require admission to the hospital for chest pain rule out. The CT was reviewed and does not show any acute intracranial abnormalities. I spoke with the admitting hospitalist Dr. Issa and she has accepted the patient to their service. Patient will be admitted to the hospital for further evaluation and management of his chest pain and possible strokelike symptoms. - Medical Records Medical records reviewed: Yes I reviewed the patient's medical records. - Lab Data Lab results reviewed: Yes I reviewed the patient's lab results. Result diagrams: 05/22/19 10:58 05/22/19 10:58 Lab Results 05/22/19 05/22/19 05/22/19 Range/Units 10:58 10:58 10:58 WBC 4.4 (4.3-11.1) K/mcL RBC 3.91 L (4.19-5.50) M/mcL Hgb 13.0 (12.9-16.9) g/dL Hct 38.9 (37.5-50.1) % MCV 99.5 (83.0-100.0) fL MCH 33.2 (28.0-33.3) pg MCHC 33.4 (31.6-35.5) g/dL RDW 13.5 (11.5-14.5) % Plt Count 121 L (140-400) K/mcL MPV 11.6 (9.4-12.4) fL Immature Gran % 0.2 (0-4) % Seg Neutrophils % 52.8 % Lymphocytes % 32.2 % Monocytes % 11.4 % Eosinophils % 3.2 % Basophils % 0.2 % Neutrophils # 2.3 (1.6-8.9) K/mcL Lymphocytes # 1.4 (0.6-4.6) K/mcL Monocytes # 0.5 (0.0-1.3) K/mcL Eosinophils # 0.1 (0.0-0.6) K/mcL Basophils # 0.0 (0.0-0.2) K/mcL PT 11.8 (9.4-12.1) Seconds INR 1.0 APTT 30.9 (26.0-36.0) Seconds Sodium 139 (136-145) mEq/L Potassium 3.6 (3.5-5.1) mEq/L Chloride 106 (98-107) mEq/L Carbon Dioxide 27 (23-29) mEq/L BUN 11 (8-23) mg/dL Creatinine 0.84 (0.70-1.30) mg/dL Est GFR ( Amer) > 60 (> 60) Est GFR (Non-Af Amer) > 60 (> 60) BUN/Creatinine Ratio 13 (6-26) Glucose 105 (70-105) mg/dL Calculated Osmolality 288 (280-300) Calcium 9.1 (8.6-10.3) mg/dL Troponin I < 0.03 (< 0.04) ng/mL - Radiology Data Radiology results reviewed: Yes I reviewed the patient's radiology results. Chest X-Ray 05/22/19 10:51 IMPRESSION: No radiographic evidence of acute cardiopulmonary process. D/ / Bayron Mariee MD / Bayron Mariee MD Interpreting Provider: Bayron Mariee MD Head CT 05/22/19 11:22 IMPRESSION: Stable exam without evidence for acute intracranial abnormality. D/ / Wenceslao Salgado MD / Wenceslao Salgado MD Interpreting Provider: Wenceslao Salgado MD - EKG Data EKG #1 EKG attestation: Yes I reviewed and interpreted this EKG. EKG results narrative: EKG shows a sinus rhythm and rate of 75 bpm, NM interval 171, curious duration 100, QTc of 458. No evidence of STEMI on EKG. This is compared to previous EKG on 06/09/18. Attestation Statement - Attestation Attestation: I, Kristofer Shen, examined this patient and my medical decision-making was reviewed with the COSTUME SPECIALIST/PA/Advanced Practice Nurse/Resident Physician. I agree with the documented findings, disposition and treatment plan as described except to the extent set forth below. 83-year-old male presents emergency Department with concerns of chest pain. Patient states symptoms have been present over the past month intermittently. He states it occurs daily at rest and with exertion. He describes it as a chest pressure that radiates to the left jaw and left neck. He also describes having some paresthesias during the exam. During the exam I find that he has left- sided pronator drift and left lower extremity weakness compared to the right. He is unsure about when this started however he thinks it may be present over the past week to month. CT was obtained which did not show evidence of mass or obvious CVA. Patient was updated regarding CT results. Patient had a negative initial troponin. I reviewed the EKG with the resident and agree with the interpretation. Patient will be admitted to the hospitalist for further care and evaluation.
[2019-05-22 11:14] LABS: Basophils % 0.2 %; Eosinophils # 0.1 K/mcL (0.0-0.6); Eosinophils % 3.2 %; Hematocrit 38.9 % (37.5-50.1); Immature Granulocytes % 0.2 % (0-4); Lymphocytes # 1.4 K/mcL (0.6-4.6); Lymphocytes % 32.2 %; Mean Corpuscular HGB Conc 33.4 g/dL (31.6-35.5); Mean Corpuscular Hemoglobin 33.2 pg (28.0-33.3); Mean Corpuscular Volume 99.5 fL (83.0-100.0); Mean Platelet Volume 11.6 fL (9.4-12.4); Monocytes # 0.5 K/mcL (0.0-1.3); Monocytes % 11.4 %; Neutrophils # 2.3 K/mcL (1.6-8.9); Platelet Count 121 K/mcL (140-400); Red Blood Count 3.91 M/mcL (4.19-5.50); Red Cell Distribution Width 13.5 % (11.5-14.5); Segmented Neutrophils % 52.8 %; White Blood Count 4.4 K/mcL (4.3-11.1)
[2019-05-22 11:24] LABS: Prothrombin Time 11.8 Seconds (9.4-12.1)
[2019-05-22 11:27] LABS: Activated Partial Thrombo Time 30.9 Seconds (26.0-36.0)
[2019-05-22 11:30] LABS: BUN/Creatinine Ratio 13 (6-26); Blood Urea Nitrogen 11 mg/dL (8-23); Calcium 9.1 mg/dL (8.6-10.3); Carbon Dioxide 27 mEq/L (23-29); Chloride 106 mEq/L (98-107); Glucose 105 mg/dL (70-105); Osmolality,Calculated 288 (280-300); Potassium 3.6 mEq/L (3.5-5.1); Sodium 139 mEq/L (136-145); Troponin I < 0.03 ng/mL (< 0.04); eGFR For African Americans > 60 (> 60); eGFR For Non-African Americans > 60 (> 60)
[2019-05-22] MEDS ORDERED: Ondansetron 4 MG/2 ML VIAL IVP PRN (12:42)
[2019-05-22] MEDS ORDERED: Naloxone 0.4 MG/ML INJ IVP PRN (12:42)
--- NOTE | 2019-05-22 12:42 | Internal Med History&Physical ---
Date of Encounter: 05/23/19 Time of Encounter: 12:41 Internal Medicine - H&P: HPI Chief complaint: WEEKNESS History of present illness: Mr. Crain is a 83 year old male COPD, coronary artery disease, GERD, glaucoma, hyperlipidemia, hypertension, thyroid disease, gastropatesis, vitamin d deficiency, anorexia, BPH, neuritis, anxiety and depression who presented to the ER with 3 weeks history of intermittent weakness of the left upper and lower extremity as well as the left side of his face associated with numbness and tingling. CT of the head was obtained and revealed no significant abnormalities. The patient is also C/o intermittent sharp chest pain for the last 3 days that is radiating to the left neck jaw and down to his left arm. The pain is burning in character associated with shortness of breath, nausea and diaphoresis. The p atient denying palpitation, paroxysmal nocturnal dyspnea, orthopnea, and progressive forcing of lower extremity edema. The patient was treated by aspirin. The patient was evaluated by the ER staff and EKG revealed no significant ST-T wave changes and troponin first set was was no significant abnormalities. The patient was admitted for further evaluation and management of TIA as well as to r/o ACS. Past Med Surg Social Fam HX - Past Medical History Medical history: COPD, coronary artery disease, GERD, glaucoma, hyperlipidemia, hypertension, thyroid disease Additional medical history: gastropatesis, vitamin d deficiency, anorexia, BPH, neuritis Psychiatric history: anxiety, depression - Past Surgical History Surgical History: cholecystectomy, orthopedic, other Additional surgical history: Back Surgery - Social History Smoking Status: Current every day smoker Smokeless Tobacco Status: No Alcohol use: none Drug use: none - Family History Father Family Member Ethnicity: Non- Living Status: Hx Family Cancer: Yes (Brain tumor) Brother Family Member Ethnicity: Non- Living Status: Hx Family Cardiac Disorders: Yes (NE) Sister Family Member Ethnicity: Non- Living Status: Still Living Son Family Member Ethnicity: Non- Living Status: Hx Family Cancer: Yes (Colon) Mother Adopted: No Family Member Ethnicity: Non- Living Status: Hx Family Cardiac Disorders: Yes (NE) Hx Family Respiratory Disorders: No Hx Family Cancer: Yes Hx Family GI Disorders: No Hx Family Endocrine Disorder: No Hx Family Neuromuscular Disorders: No Hx Family Neurologic Disorders: No Hx Family HEENT Disorders: No Hx Family Autoimmune Disorders: No Internal Medicine - H&P: Meds Atorvastatin [Lipitor] 40 mg PO HS 04/26/16 [History] Docusate [Colace] 100 mg PO HS PRN 04/26/16 [History] Nitroglycerin [Nitrostat] 0.4 mg SL AD PRN 04/26/16 [History] Quetiapine Fumarate [Seroquel] 100 mg PO HS 04/26/16 [History] Sertraline [Zoloft] 100 mg PO DAILY 04/26/16 [History] Zolpidem [Ambien] 10 mg PO HS 04/26/16 [History] Methadone 5 mg PO Q8HR 04/14/18 [History] Oxycodone HCl/Acetaminophen [Percocet 5-325 mg Tablet] 2 tab PO TID PRN 04/14/18 [History] Esomeprazole Magnesium [Nexium] 40 mg PO DAILY 06/09/18 [History] Latanoprost [Xalatan] 1 drop BOTH EYES DAILY 06/09/18 [History] Lipase/Protease/Amylase [Creon Dr 24,000 Units Capsule] 2 cap PO BID 06/09/18 [History] Salmeterol Xinafoate [Serevent Diskus] 1 puff IH BID 06/09/18 [History] Allergy/AdvReac Type Severity Reaction Status Date / Time codeine AdvReac Dizziness Verified 06/09/18 11:40 sucralfate [From Carafate] AdvReac Gastrointestinal Verified 06/09/18 11:40 Upset All Systems PM: A 10-system review of systems was performed and is negative for pertinent findings except as documented above in the HPI. - Constitutional Vitals: Temp Pulse Resp BP Pulse Ox 98.5 F 60 16 136/84 98 05/22/19 10:46 05/22/19 12:06 05/22/19 12:06 05/22/19 12:06 05/22/19 12:06 General appearance: Present: A&O X 3 - Head Head exam: Present: atraumatic, normocephalic - Neck Neck exam general surgery: Present: supple, trachea midline. Absent: lymphadenopathy - Respiratory Respiratory exam: Present: CTAB. Absent: accessory muscle use, rales, rhonchi, wheezes - Cardiovascular Cardiovascular exam: Present: RRR, +S1, +S2. Absent: diastolic murmur, gallop, rubs, systolic murmur - GI/Abdominal GI/Abdominal exam: Present: normal bowel sounds, soft, no peritoneal signs. Absent: distended, tenderness - Extremities Exam Extremities exam: Present: warm, radial pulses palpable and symmetrical. Absent: calf tenderness, cyanotic, pedal edema - Neurological Exam Neurological exam: Present: CN II-XII intact, oriented X3, no focal deficits. Absent: pronater drift, facial droop, speech deficit Internal Med - H&P Results - Labs CBC & Chem 7: 05/23/19 04:17 05/23/19 04:17 Labs: Short CBC 05/22/19 Range/Units 10:58 WBC 4.4 (4.3-11.1) K/mcL Hgb 13.0 (12.9-16.9) g/dL Hct 38.9 (37.5-50.1) % Plt Count 121 L (140-400) K/mcL Neutrophils # 2.3 (1.6-8.9) K/mcL BMP 05/22/19 10:58 Sodium 139 Potassium 3.6 Chloride 106 Carbon Dioxide 27 BUN 11 Creatinine 0.84 Glucose 105 Calcium 9.1 Cardiac Enzymes 05/22/19 Range/Units 10:58 Troponin I < 0.03 (< 0.04) ng/mL - Impressions ITS Impressions Chest X-Ray 05/22/19 10:51 IMPRESSION: No radiographic evidence of acute cardiopulmonary process. D/ / Bayron Mariee MD / Bayron Mariee MD Interpreting Provider: Bayron Mariee MD Head CT 05/22/19 11:22 IMPRESSION: Stable exam without evidence for acute intracranial abnormality. D/ / Wenceslao Salgado MD / Wenceslao Salgado MD Interpreting Provider: Wenceslao Salgado MD - Assessment and Plan (1) Neurological symptoms Current Visit: Yes Status: Acute Assessment and plan: The patient presented to the ER with 3 weeks history of intermittent weakness of the left upper and lower extremity as well as the left side of his face associated with numbness and tingling. CT of the head was obtained and revealed no significant abnormalities , R/O TIA. at this time the patient is neurol ogically intact and has no neurological symptoms at this point. PLAN: -CPP x 2 q 8 hr -EKG now and in AM -ASA - carotid Doppler - Echo - MRI in Am (2) Chest pain Current Visit: Yes Status: Acute Assessment and plan: Chest pain R/O CAD, the patient s/p cardiac cath that revealed Mild athero sclerotic coronary artery disease. The left ventricle is normal and has normal contractility EF 65% and cardiology recommended Optimal medical therapy of patient's disease and aggressive risk factor modification. 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 transplanted heart: [place] heart Associated angina: angina presence unspecified Qualified Code(s): I25.10 - Atherosclerotic heart disease of [place] coronary artery without angina pectoris (6) COPD (chronic obstructive pulmonary disease) Current Visit: No Status: Chronic Qualifiers: COPD type: unspecified COPD Qualified Code(s): J44.9 - Chronic obstructive pulmonary disease, unspecified (7) Chronic pancreatitis Current Visit: No Status: Chronic Qualifiers: Pancreatitis type: other Qualified Code(s): K86.1 - Other chronic pancreatitis (8) GERD (gastroesophageal reflux disease) Current Visit: No Status: Chronic Qualifiers: Esophagitis presence: with esophagitis Qualified Code(s): K21.0 - Gastro- esophageal reflux disease with esophagitis (9) HTN (hypertension) Current Visit: No Status: Chronic Qualifiers: Hypertension type: essential hypertension Qualified Code(s): I10 - [place] l (primary) hypertension (10) History of abdominal aortic aneurysm Current Visit: No Status: Chronic (11) Thyroid disease Current Visit: No Status: Chronic (12) Tobacco abuse Current Visit: No Status: Chronic - Time Spent With Patient Total time spent is greater than 50% in coordination of care (as documented) at patient's floor/unit and/or counseling patient:
[2019-05-22] MEDS ORDERED: *HR* OxyCODONE/APAP 5/325 TABLET PO PRN (17:37)
[2019-05-22] MEDS ORDERED: Nitroglycerin 0.4 MG TAB.SUBL SL PRN (17:37)
[2019-05-22] MEDS: *HR* OxyCODONE/APAP 10/325 TABLET PO PRN (20:15)
[2019-05-22] MEDS: Albuterol 2.5 MG/3 ML NEBULIZER IH SCH (22:04)
[2019-05-22] MEDS: *HR* Methadone 5 MG TABLET PO SCH (23:38)
[2019-05-23] MEDS: Albuterol 2.5 MG/3 ML NEBULIZER IH SCH ×4 (03:30→21:56)
[2019-05-23 04:29] LABS: Basophils % 0.2 %; Eosinophils # 0.1 K/mcL (0.0-0.6); Eosinophils % 2.9 %; Hematocrit 37.7 % (37.5-50.1); Hemoglobin 12.6 g/dL (12.9-16.9); Lymphocytes # 1.7 K/mcL (0.6-4.6); Lymphocytes % 35.1 %; Mean Corpuscular HGB Conc 33.4 g/dL (31.6-35.5); Mean Corpuscular Hemoglobin 32.8 pg (28.0-33.3); Mean Corpuscular Volume 98.2 fL (83.0-100.0); Mean Platelet Volume 11.3 fL (9.4-12.4); Monocytes # 0.5 K/mcL (0.0-1.3); Monocytes % 9.5 %; Neutrophils # 2.5 K/mcL (1.6-8.9); Platelet Count 125 K/mcL (140-400); Red Blood Count 3.84 M/mcL (4.19-5.50); Red Cell Distribution Width 13.4 % (11.5-14.5); Segmented Neutrophils % 52.3 %; White Blood Count 4.9 K/mcL (4.3-11.1)
[2019-05-23 04:36] LABS: INR 1.1; Prothrombin Time 12.4 Seconds (9.4-12.1)
[2019-05-23 04:38] LABS: Activated Partial Thrombo Time 29.9 Seconds (26.0-36.0)
[2019-05-23 04:48] LABS: Alanine Aminotransferase 10 Units/L (7-52); Albumin 3.7 g/dL (3.5-5.7); Albumin/Globulin Ratio 1.5 (1.1-2.2); Alkaline Phosphatase 80 Units/L (34-104); Aspartate Amino Transferase 16 Units/L (13-39); BUN/Creatinine Ratio 14 (6-26); Bilirubin,Total 0.6 mg/dL (0.3-1.0); Blood Urea Nitrogen 11 mg/dL (8-23); Calcium 9.2 mg/dL (8.6-10.3); Carbon Dioxide 28 mEq/L (23-29); Chloride 104 mEq/L (98-107); Chol/HDL Ratio 3.6 (0-4.9); Cholesterol 164 mg/dL (< 200); Globulin 2.4 g/dL (2.4-3.5); Glucose 86 mg/dL (70-105); HDL Cholesterol 45 mg/dL (40-59); LDL Cholesterol,Calculated 101 mg/dL (0-99); Osmolality,Calculated 291 (280-300); Phosphorous 3.7 mg/dL (2.7-4.5); Potassium 3.7 mEq/L (3.5-5.1); Sodium 141 mEq/L (136-145); Total Protein 6.1 g/dL (6.4-8.9); Triglycerides 92 mg/dL (< 150); eGFR For African Americans > 60 (> 60); eGFR For Non-African Americans > 60 (> 60)
[2019-05-23 06:41] LABS: Troponin I < 0.03 ng/mL (< 0.04)
[2019-05-23] MEDS ORDERED: Regadenoson 0.4 MG/5 ML SYRINGE IVP ONE (07:40)
--- NOTE | 2019-05-23 08:48 | Internal Med Progress Note ---
Hospitalist Progress Note - Encounter Date of Encounter: 05/23/19 Time of Encounter: 08:45 - Subjective Interval History: Mr. Crain is a 83 year old male COPD, coronary artery disease, GERD, glaucoma, hyperlipidemia, hypertension, thyroid disease, gastropatesis, vitamin d deficiency, anorexia, BPH, neuritis, anxiety and depression who presented to the ER with 3 weeks history of intermittent weakness of the left upper and lower extremity as well as the left side of his face associated with numbness and tingling. CT of the head was obtained and revealed no significant abnormalities. The patient is also C/o intermittent sharp chest pain for the last 3 days that is radiating to the left neck jaw and down to his left arm. The patient was admitted for further evaluation and management of TIA as well as to r/o ACS. Patient seen and examined in the room. She reported intermittent left-sided weakness and paresthesias for the last couple weeks. She also reported left- sided chest pain and the left neck and the jaw pain. Reported mild shortness of breath, but no palpitation or syncope. - Exam Vitals: Temp Pulse Resp BP Pulse Ox 98.1 F 62 17 129/81 94 05/23/19 07:52 05/23/19 07:52 05/23/19 07:52 05/23/19 07:52 05/23/19 07:52 Exam: PHYSICAL EXAMINATION: GENERAL APPEARANCE: The patient is alert, oriented and in no acute distress. HEENT: Head is normocephalic. The sinuses are nontender. Pupils are equal and reactive. The nares are patent. Oropharynx clear without lesions. NECK: Supple without lymphadenopathy. HEART: Regular rate and rhythm. LUNGS: No crackles or wheezes are heard. ABDOMEN: Soft, nontender, nondistended with good bowel sounds heard. Inguinal area is normal. EXTREMITIES: Without cyanosis, clubbing or edema. NEUROLOGICAL: Gross nonfocal. SKIN: Warm and dry without any rash. - Assessment and Plan (1) Neurological symptoms Current Visit: Yes Status: Acute Assessment and Plan: 05/22 The patient presented to the ER with 3 weeks history of intermittent weakness of the left upper and lower extremity as well as the left side of his face associated with numbness and tingling. CT of the head was obtained and revealed no significant abnormalities , R/O TIA. at this time the patient is neurologically intact and has no neurological symptoms at this point. PLAN: -CPP x 2 q 8 hr -EKG now and in AM -ASA - carotid Doppler - Echo - MRI in Am. 05/23 Patient currently has no neurological deficit on physical exam. Pending workup including MRI of brain. Continue daily aspirin. (2) Chest pain Current Visit: Yes Status: Acute Assessment and Plan: 05/22 Chest pain R/O CAD, the patient s/p cardiac cath that revealed Mild atherosclerotic coronary artery disease. The left ventricle is normal and has normal contractility EF 65% and cardiology recommended Optimal medical therapy of patient's disease and aggressive risk factor modification. DD *Muskuloskeletal CP - myofascial strain, costochondritis *GERD *Esophageal spasm *Pericarditis - unlikely *Pneumonia - no infiltrate on CXR PLAN: - cardiac enzymes x 2 q 8 hr - EKG now and in AM - ASA - O2 by NC to keep SpO2 greater than 92% - UA - CBCD, BMP in AM - Fasting lipids - 2D Echo 05/23 Troponin was negative, EKG has no acute ST-T change. Pending echocardiogram and a stress test. (3) HTN (hypertension) Current Visit: No Status: Chronic Assessment and Plan: BP controlled, continue current treatment. (4) Tobacco abuse Current Visit: No Status: Chronic Assessment and Plan: Smoking cessation discussed with patient. (5) History of abdominal aortic aneurysm Current Visit: No Status: Chronic Assessment and Plan: Encouraged to stop smoking, follow-up with PCP as outpatient. (6) COPD (chronic obstructive pulmonary disease) Current Visit: No Status: Chronic Assessment and Plan: No respiratory distress, continue home medications. (7) Hyperlipidemia Current Visit: No Status: Acute Assessment and Plan: Repeated lipid panel this morning showed LDL 101, HDL 45. Continue current treatment. 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 (9) CAD (coronary artery disease) Current Visit: No Status: Chronic Assessment and Plan: Same as above. (10) GERD (gastroesophageal reflux disease) Current Visit: No Status: Chronic Assessment and Plan: Continue home medication. (11) Thyroid disease Current Visit: No Status: Chronic Assessment and Plan: Continue home medication. DVT Prophylaxis: Heparin subcutaneous. - Time Spent with Patient Total time spent is greater than 50% in coordination of care (as documented) at patient's floor/unit and/or counseling patient: Greater than 35 minutes Plan of Care Discussed with: patient Internal Medicine: Result - Labs CBC & Chem 7: 05/23/19 04:17 05/23/19 04:17 Labs: Short CBC 05/22/19 05/23/19 Range/Units 10:58 04:17 WBC 4.4 4.9 (4.3-11.1) K/mcL Hgb 13.0 12.6 L (12.9-16.9) g/dL Hct 38.9 37.7 (37.5-50.1) % Plt Count 121 L 125 L (140-400) K/mcL Neutrophils # 2.3 2.5 (1.6-8.9) K/mcL BMP 05/22/19 05/23/19 10:58 04:17 Sodium 139 141 Potassium 3.6 3.7 Chloride 106 104 Carbon Dioxide 27 28 BUN 11 11 Creatinine 0.84 0.81 Glucose 105 86 Calcium 9.1 9.2 Cardiac Enzymes 05/22/19 05/22/19 05/22/19 Range/Units 10:58 17:18 23:02 Troponin I < 0.03 < 0.03 < 0.03 (< 0.04) ng/mL 05/23/19 Range/Units 04:17 Troponin I < 0.03 (< 0.04) ng/mL Liver Function 05/23/19 Range/Units 04:17 Total Bilirubin 0.6 (0.3-1.0) mg/dL AST 16 (13-39) Units/L ALT 10 (7-52) Units/L Alkaline Phosphatase 80 (34-104) Units/L Albumin 3.7 (3.5-5.7) g/dL - ABG Interpretation ABG results: PT/INR, D-dimer PT 12.4 Seconds (9.4-12.1) H 05/23/19 04:17 - Impressions Impressions Chest X-Ray 05/22/19 10:51 IMPRESSION: No radiographic evidence of acute cardiopulmonary process. D/ / Bayron Mariee MD / Bayron Mariee MD Interpreting Provider: Bayron Mariee MD Head CT 05/22/19 11:22 IMPRESSION: Stable exam without evidence for acute intracranial abnormality. D/ / Wenceslao Salgado MD / Wenceslao Salgado MD Interpreting Provider: Wenceslao Salgado MD Consult Discharge Plan - Plan Referrals: Lilly Valdez, SCARFER OPERATOR [Primary Care Provider] - (2) Chest pain Qualifiers: Chest pain type: unspecified Qualified Code(s): R07.9 - Chest pain, unspecified (3) HTN (hypertension) Qualifiers: Hypertension type: essential hypertension Qualified Code(s): I10 - Essential (primary) hypertension (6) COPD (chronic obstructive pulmonary disease) Qualifiers: COPD type: unspecified COPD Qualified Code(s): J44.9 - Chronic obstructive pulmonary disease, unspecified (7) Hyperlipidemia Qualifiers: Hyperlipidemia type: mixed hyperlipidemia Qualified Code(s): E78.2 - Mixed hyperlipidemia (8) Colvin esophagus Qualifiers: 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 transplanted heart: [place] heart Associated angina: angina presence unspecified Qualified Code(s): I25.10 - Atherosclerotic heart disease of [place] coronary artery without angina pectoris (10) GERD (gastroesophageal reflux disease) Qualifiers: Esophagitis presence: with esophagitis Qualified Code(s): K21.0 - Gastro- esophageal reflux disease with esophagitis
[2019-05-23] MEDS: *HR* Methadone 5 MG TABLET PO SCH ×3 (12:56→21:04)
[2019-05-23] MEDS: *HR* OxyCODONE/APAP 10/325 TABLET PO PRN (14:41)
[2019-05-23] MEDS: *HR* Heparin 5,000 UNIT/ML VIAL SQ SCH (17:08)
[2019-05-23] MEDS ORDERED: Latanoprost 2.5 ML BOTTLE BOTH EYES SCH (21:00)
[2019-05-24] MEDS: Albuterol 2.5 MG/3 ML NEBULIZER IH SCH (03:55)
[2019-05-24 04:16] LABS: Hematocrit 38.1 % (37.5-50.1); Hemoglobin 12.9 g/dL (12.9-16.9); Mean Corpuscular HGB Conc 33.9 g/dL (31.6-35.5); Mean Corpuscular Volume 100.5 fL (83.0-100.0); Mean Platelet Volume 11.8 fL (9.4-12.4); Platelet Count 131 K/mcL (140-400); Red Blood Count 3.79 M/mcL (4.19-5.50); Red Cell Distribution Width 13.5 % (11.5-14.5)
[2019-05-24 04:36] LABS: BUN/Creatinine Ratio 16 (6-26); Blood Urea Nitrogen 13 mg/dL (8-23); Calcium 9.1 mg/dL (8.6-10.3); Carbon Dioxide 26 mEq/L (23-29); Chloride 105 mEq/L (98-107); Glucose 91 mg/dL (70-105); Osmolality,Calculated 288 (280-300); Potassium 3.8 mEq/L (3.5-5.1); Sodium 139 mEq/L (136-145); eGFR For African Americans > 60 (> 60); eGFR For Non-African Americans > 60 (> 60)
[2019-05-24] MEDS: *HR* Heparin 5,000 UNIT/ML VIAL SQ SCH (05:11)
[2019-05-24 06:54] VITALS: BP 114/57
--- NOTE | 2019-05-24 08:20 | Discharge Summary ---
- NOTES TO OUTPATIENT PROVIDER Notes to Outpatient Provider: f/u with PCP within 2 weeks. Orders not resulted at time of discharge: Pending orders 05/22/19 12:42 Urinalysis reflex Microscopic [URIN] Routine Date of Encounter: 05/24/19 Time of Encounter: 08:18 - Discharge Diagnosis (1) Neurological symptoms Priority: Primary Status: Acute (2) Chest pain Priority: Primary Status: Acute Qualifiers: Chest pain type: unspecified Qualified Code(s): R07.9 - Chest pain, unspecified (3) HTN (hypertension) Priority: Secondary Status: Chronic Qualifiers: Hypertension type: essential hypertension Qualified Code(s): I10 - Essential (primary) hypertension (4) Tobacco abuse Priority: Secondary Status: Chronic (5) History of abdominal aortic aneurysm Priority: Secondary Status: Chronic (6) COPD (chronic obstructive pulmonary disease) Priority: Secondary Status: Chronic Qualifiers: COPD type: unspecified COPD Qualified Code(s): J44.9 - Chronic obstructive pulmonary disease, unspecified (7) Hyperlipidemia Priority: Secondary Status: Chronic Qualifiers: Hyperlipidemia type: mixed hyperlipidemia Qualified Code(s): E78.2 - Mixed hyperlipidemia (8) Colvin esophagus Priority: Secondary Status: Chronic Qualifiers: Colvin's esophagus type: with dysplasia of unspecified degree Qualified Code(s): K22.719 - Colvin's esophagus with dysplasia, unspecified; K22.71 - Colvin's esophagus with dysplasia (9) CAD (coronary artery disease) Priority: Secondary Status: Chronic Qualifiers: Coronary Disease-Associated Artery/Lesion type: unspecified vessel or lesion type [place] vs. transplanted heart: [place] heart Associated angina: angina presence unspecified Qualified Code(s): I25.10 - Atherosclerotic heart disease of [place] coronary artery without angina pectoris (10) GERD (gastroesophageal reflux disease) Priority: Secondary Status: Chronic Qualifiers: Esophagitis presence: with esophagitis Qualified Code(s): K21.0 - Gastro- esophageal reflux disease with esophagitis (11) Thyroid disease Priority: Secondary Status: Chronic Hospital course: Mr. Crain is a 83 year old male COPD, coronary artery disease, GERD, glaucoma, hyperlipidemia, hypertension, thyroid disease, gastropatesis, vitamin d deficiency, anorexia, BPH, neuritis, anxiety and depression who presented to the ER with 3 weeks history of intermittent weakness of the left upper and lower extremity as well as the left side of his face associated with numbness and tingling. CT of the head was obtained and revealed no significant abnormalities. The patient is also C/o intermittent sharp chest pain for the last 3 days that is radiating to the left neck jaw and down to his left arm. The pain is burning in character associated with shortness of breath, nausea and diaphoresis. The patient was evaluated by the ER staff and EKG revealed no significant ST-T wave changes and troponin first set was was no significant abnormalities. The patient was admitted for further evaluation and management of TIA as well as to r/o ACS. MRI of brain was performed which was negative for acute CVA. Echocardiogram was unremarkable with normal LV ejection fraction. A stress test was also negative for ischemia or infarct. Patient chest pain and her neurological symptoms currently are resolved. He will be discharged home today, follow-up with PCP within 2 weeks. Discharge discussed with: patient Time spent discussing smoking cessation with patient: more than 10 minutes - Time Spent with Patient Total time spent providing and/or coordinating discharge services: Time spent: Greater than 30 minutes - Discharge Medications Prescriptions: Continued Nitroglycerin [Nitrostat] 0.4 mg SL AD PRN PRN Reason: Chest Pain Quetiapine Fumarate [Seroquel] 100 mg PO HS Zolpidem [Ambien] 10 mg PO HS Atorvastatin [Lipitor] 40 mg PO HS Sertraline [Zoloft] 100 mg PO DAILY Methadone 5 mg PO Q8HR Lipase/Protease/Amylase [Creon Dr 24,000 Units Capsule] 2 cap PO BID Levothyroxine [Synthroid] 75 mcg PO 0630 Omeprazole [PriLOSEC] 40 mg PO DAILY OxyCODONE/APAP 10/325 [Percocet 10/325 MG] 1 each PO Q8HR PRN PRN Reason: Pain Travoprost [Travatan Z] 1 drop BOTH EYES HS Home Medications: Atorvastatin [Lipitor] 40 mg PO HS 04/26/16 [History] Nitroglycerin [Nitrostat] 0.4 mg SL AD PRN 04/26/16 [History] Quetiapine Fumarate [Seroquel] 100 mg PO HS 04/26/16 [History] Sertraline [Zoloft] 100 mg PO DAILY 04/26/16 [History] Zolpidem [Ambien] 10 mg PO HS 04/26/16 [History] Methadone 5 mg PO Q8HR 04/14/18 [History] Lipase/Protease/Amylase [Creon Dr 24,000 Units Capsule] 2 cap PO BID 06/09/18 [History] Levothyroxine [Synthroid] 75 mcg PO 0630 05/23/19 [History] Omeprazole [PriLOSEC] 40 mg PO DAILY 05/23/19 [History] OxyCODONE/APAP 10/325 [Percocet 10/325 MG] 1 each PO Q8HR PRN 05/23/19 [History] Travoprost [Travatan Z] 1 drop BOTH EYES HS 05/23/19 [History] Allergies/Adverse Reactions: Allergy/AdvReac Type Severity Reaction Status Date / Time codeine AdvReac Dizziness Verified 05/23/19 18:55 sucralfate [From Carafate] AdvReac Gastrointestinal Verified 05/23/19 18:55 Upset Date of admission: 05/22/19 12:53 Primary care physician: Lilly Valdez CNP Anticipated date of discharge: 05/24/19 - Constitutional Vitals: Temp Pulse Resp BP Pulse Ox 98.1 F 58 16 114/57 94 05/24/19 06:50 05/24/19 06:50 05/24/19 06:50 05/24/19 06:50 05/24/19 06:50 General appearance: Present: A&O X 3 Exam: PHYSICAL EXAMINATION: GENERAL APPEARANCE: The patient is alert, oriented and in no acute distress. HEENT: Head is normocephalic. The sinuses are nontender. Pupils are equal and reactive. The nares are patent. Oropharynx clear without lesions. NECK: Supple without lymphadenopathy. HEART: Regular rate and rhythm. LUNGS: No crackles or wheezes are heard. ABDOMEN: Soft, nontender, nondistended with good bowel sounds heard. Inguinal area is normal. EXTREMITIES: Without cyanosis, clubbing or edema. NEUROLOGICAL: Gross nonfocal. SKIN: Warm and dry without any rash. - Patient Status Disposition: Home, Self-Care Condition: Fair Functional capacity at discharge: independent ambulation Overall status at discharge: patient is progressing back to baseline - Discharge Instructions Follow Up With: Lilly Valdez CNP [Primary Care Provider] - (Appt has been requested) - Diet and Activity Activity: increase activity as tolerated Diet: low fat, low cholesterol, low salt diet
[2019-05-24] MEDS: *HR* OxyCODONE/APAP 10/325 TABLET PO PRN (08:32)
--- NOTE | 2019-05-24 12:33 | Electrocardiograph Report ---
[address] [address] Test Date: 2019-05-22 Pat Name: Jason Crain Department: [id number] Room: 3B16 Gender: M Protective Services Social Worker: : 1935 Requested By: Derik Barger Order Number: [id number] Reading MD: Gary Bryant Measurements Intervals [place] Rate: 75 P: 59 IN: 171 QRS: 68 QRSD: 100 T: 67 QT: 410 QTc: 458 Interpretive Statements Sinus rhythm Electronically Signed On 05-24-2019 12:31:26 EDT by Gary Bryant
--- NOTE | 2019-05-24 16:15 | Electrocardiograph Report ---
[address] [address] Test Date: 2019-05-23 Pat Name: Jason Crain Department: 113 Room: 3B16 Gender: M Staff Research Associate: ALEXANDRA : 1935 Requested By: Candy Issa Order Number: [id number] Reading MD: Gary Bryant Measurements Intervals [place] Rate: 61 P: 79 AR: 193 QRS: 36 QRSD: 97 T: 45 QT: 427 QTc: 431 Interpretive Statements SINUS RHYTHM Electronically Signed On 05-24-2019 16:13:37 EDT by Gary Bryant
== END 2019-05-24 09:06 | disposition home or self-care (01) ==
LOC: 3BNU 10:44 → EMEROOARM 10:44 → 3BNU 13:34
PROVIDERS: ADMIT Internal Medicine Nephrology; ATTEND Internal Medicine Nephrology

== ENCOUNTER 2020-09-04 13:19 | Observation (INO) ==
[2020-09-04 14:20] LABS: Prothrombin Time 12.1 Seconds (9.4-12.1)
[2020-09-04 14:22] LABS: Activated Partial Thrombo Time 27.7 Seconds (26.0-36.0)
[2020-09-04 14:28] LABS: Eosinophils % 2.4 %; Immature Granulocytes % 0.2 % (0-4); Mean Platelet Volume 11.6 fL (9.4-12.4)
[2020-09-04 14:30] LABS: Basophils % 0.2 %; Eosinophils # 0.1 K/mcL (0.0-0.6); Hematocrit 41.3 % (37.5-50.1); Hemoglobin 13.6 g/dL (12.9-16.9); Lymphocytes # 1.5 K/mcL (0.6-4.6); Lymphocytes % 25.4 %; Mean Corpuscular HGB Conc 32.9 g/dL (31.6-35.5); Mean Corpuscular Volume 100.2 fL (83.0-100.0); Monocytes # 0.5 K/mcL (0.0-1.3); Monocytes % 8.2 %; Platelet Count 131 K/mcL (140-400); Red Blood Count 4.12 M/mcL (4.19-5.50); Red Cell Distribution Width 12.6 % (11.5-14.5); Segmented Neutrophils % 63.6 %; White Blood Count 5.9 K/mcL (4.3-11.1)
[2020-09-04 14:34] LABS: Albumin 4.3 g/dL (3.5-5.7); Albumin/Globulin Ratio 1.6 (1.1-2.2); Bilirubin,Direct 0.1 mg/dL (0.0-0.2); Bilirubin,Indirect 0.4 mg/dL (0.0-1.0); Bilirubin,Total 0.5 mg/dL (0.3-1.0); Globulin 2.7 g/dL (2.4-3.5)
[2020-09-04 14:36] LABS: BUN/Creatinine Ratio 12 (6-26); Blood Urea Nitrogen 9 mg/dL (8-23); Calcium 9.2 mg/dL (8.6-10.3); Carbon Dioxide 28 mEq/L (23-29); Chloride 105 mEq/L (98-107); Glucose 99 mg/dL (70-105); Osmolality,Calculated 287 (280-300); Sodium 139 mEq/L (136-145); eGFR For African Americans > 60 (> 60); eGFR For Non-African Americans > 60 (> 60)
[2020-09-04 14:37] LABS: Troponin I < 0.03 ng/mL (< 0.04)
[2020-09-04 14:46] LABS: Neutrophils # 3.8 K/mcL (1.6-8.9)
[2020-09-04 15:41] LABS: Bilirubin,Urine Negative (Negative); Blood,Urine Negative (Negative); Clarity,Urine Clear (Clear); Color,Urine Yellow (Yellow); Glucose,Urine (UA) Normal (Normal); Ketones,Urine Negative (Negative); Leukocyte Esterase,Urine Negative (Negative); Nitrite,Urine Negative (Negative); Protein,Urine Negative (Neg-Trace); Urobilinogen,Urine Normal (Normal)
[2020-09-04] MEDS ORDERED: Isovue-370 500 ML BOTTLE IVP ONE ×2 (16:12)
[2020-09-04] MEDS ORDERED: Aspirin 81 MG TAB.CHEW PO ONE (19:59)
[2020-09-04] MEDS ORDERED: Famotidine 20 MG/2 ML VIAL IVP ONE (20:36)
[2020-09-04] MEDS ORDERED: Perflutren Lipid Microsphere 1.3 ML in 0.9 % Sodium Chloride 8.7 ML IVP PRN (20:37)
[2020-09-04] MEDS ORDERED: Naloxone 0.4 MG/ML INJ IVP PRN (20:41)
[2020-09-04] MEDS ORDERED: Acetaminophen 325 MG TABLET PO PRN (20:41)
[2020-09-04] MEDS ORDERED: Prochlorperazine 10 MG/2 ML VIAL IVP PRN (20:44)
[2020-09-04] MEDS: Nitroglycerin 0.4 MG TAB.SUBL SL SCH ×2 (20:45→20:46)
[2020-09-04] MEDS ORDERED: Morphine Sulfate 2 MG/ML SYRINGE IVP ONE (20:46)
[2020-09-04] MEDS ORDERED: GI Cocktail 40 ML EACH PO ONE (22:25)
[2020-09-04] MEDS ORDERED: Melatonin 3 MG TABLET PO PRN (22:38)
[2020-09-04] MEDS: QUEtiapine Fumarate 100 MG TABLET PO SCH (22:57)
[2020-09-05 02:18] LABS: Hematocrit 37.7 % (37.5-50.1); Hemoglobin 12.6 g/dL (12.9-16.9); Mean Corpuscular HGB Conc 33.4 g/dL (31.6-35.5); Mean Corpuscular Hemoglobin 33.1 pg (28.0-33.3); Mean Platelet Volume 11.2 fL (9.4-12.4); Platelet Count 122 K/mcL (140-400); Red Blood Count 3.81 M/mcL (4.19-5.50); Red Cell Distribution Width 12.6 % (11.5-14.5)
[2020-09-05 02:36] LABS: BUN/Creatinine Ratio 14 (6-26); Blood Urea Nitrogen 10 mg/dL (8-23); Calcium 9.1 mg/dL (8.6-10.3); Carbon Dioxide 27 mEq/L (23-29); Chloride 105 mEq/L (98-107); Chol/HDL Ratio 3.2 (0-4.9); Cholesterol 134 mg/dL (< 200); Glucose 98 mg/dL (70-105); HDL Cholesterol 42 mg/dL (40-59); LDL Cholesterol,Calculated 75 mg/dL (< 100); Osmolality,Calculated 287 (280-300); Phosphorous 2.7 mg/dL (2.7-4.5); Potassium 3.8 mEq/L (3.5-5.1); Sodium 139 mEq/L (136-145); Triglycerides 84 mg/dL (< 150); eGFR For African Americans > 60 (> 60); eGFR For Non-African Americans > 60 (> 60)
[2020-09-05] MEDS ORDERED: *HR* Heparin 5,000 UNIT/ML VIAL SQ SCH (06:00)
[2020-09-05] MEDS ORDERED: Regadenoson 0.4 MG/5 ML SYRINGE IVP ONE (06:17)
[2020-09-05] MEDS: *HR* OxyCODONE/APAP 10/325 TABLET PO PRN (17:45)
[2020-09-05] MEDS: QUEtiapine Fumarate 100 MG TABLET PO SCH (20:45)
[2020-09-05] MEDS: Latanoprost 2.5 ML BOTTLE BOTH EYES SCH (20:46)
[2020-09-05] MEDS: *HR* Methadone 5 MG TABLET PO SCH (20:46)
[2020-09-06 01:57] LABS: Red Cell Distribution Width 12.5 % (11.5-14.5)
[2020-09-06 01:59] LABS: Hematocrit 37.6 % (37.5-50.1); Hemoglobin 12.7 g/dL (12.9-16.9); Immature Platelets 6.6 % (1.1-6.1); Mean Corpuscular HGB Conc 33.8 g/dL (31.6-35.5); Mean Corpuscular Volume 100.5 fL (83.0-100.0); Mean Platelet Volume 11.6 fL (9.4-12.4); Red Blood Count 3.74 M/mcL (4.19-5.50); White Blood Count 5.6 K/mcL (4.3-11.1)
[2020-09-06 02:35] LABS: BUN/Creatinine Ratio 20 (6-26); Blood Urea Nitrogen 15 mg/dL (8-23); Calcium 9.1 mg/dL (8.6-10.3); Carbon Dioxide 27 mEq/L (23-29); Chloride 108 mEq/L (98-107); Glucose 94 mg/dL (70-105); Osmolality,Calculated 293 (280-300); Potassium 3.9 mEq/L (3.5-5.1); Sodium 141 mEq/L (136-145); eGFR For African Americans > 60 (> 60); eGFR For Non-African Americans > 60 (> 60)
[2020-09-06] MEDS: *HR* Methadone 5 MG TABLET PO SCH ×2 (08:05→20:48)
[2020-09-06] MEDS: *HR* OxyCODONE/APAP 10/325 TABLET PO PRN (08:06)
[2020-09-06] MEDS: Latanoprost 2.5 ML BOTTLE BOTH EYES SCH (18:08)
[2020-09-06] MEDS: QUEtiapine Fumarate 100 MG TABLET PO SCH (20:48)
[2020-09-07 05:15] LABS: Hematocrit 37.9 % (37.5-50.1); Hemoglobin 12.6 g/dL (12.9-16.9); Immature Platelets 7.8 % (1.1-6.1); Mean Corpuscular HGB Conc 33.2 g/dL (31.6-35.5); Mean Corpuscular Hemoglobin 32.9 pg (28.0-33.3); Mean Platelet Volume 11.6 fL (9.4-12.4); Red Blood Count 3.83 M/mcL (4.19-5.50); Red Cell Distribution Width 12.7 % (11.5-14.5); White Blood Count 6.2 K/mcL (4.3-11.1)
[2020-09-07 05:38] LABS: BUN/Creatinine Ratio 22 (6-26); Blood Urea Nitrogen 15 mg/dL (8-23); Carbon Dioxide 26 mEq/L (23-29); Chloride 108 mEq/L (98-107); Glucose 88 mg/dL (70-105); Osmolality,Calculated 290 (280-300); Potassium 3.6 mEq/L (3.5-5.1); Sodium 140 mEq/L (136-145); eGFR For African Americans > 60 (> 60); eGFR For Non-African Americans > 60 (> 60)
[2020-09-07 06:05] LABS: Folate 15.4 ng/mL (3.0-16.0)
[2020-09-07] MEDS ORDERED: *HR* Midazolam HCl 5 MG/5 ML VIAL IVP ONE ×2 (07:08→07:42)
[2020-09-07] MEDS ORDERED: *HR* FentaNYL (PF) 100 MCG/2 ML VIAL ONE (07:08)
[2020-09-07] MEDS ORDERED: Tetracaine/Benzocaine/Butamben 1 SPRAY AEROSOL MM ONE (07:42)
[2020-09-07] MEDS: *HR* FentaNYL (PF) 100 MCG/2 ML VIAL IVP ONE ×2 (07:44→07:46)
[2020-09-07] MEDS ORDERED: 0.9 % Sodium Chloride 500 ML IVC SCH (07:45)
[2020-09-07] MEDS: *HR* Methadone 5 MG TABLET PO SCH (09:23)
[2020-09-07 12:03] VITALS: BP 117/76
== END 2020-09-07 16:11 | disposition home or self-care (01) ==
LOC: EMEROOARM 13:19 → 3BNU 13:19
PROVIDERS: ADMIT Family Medicine; ATTEND Family Medicine
PROC: ENDOEBX (2020-09-07 18:10)

== ENCOUNTER 2021-05-06 14:03 | Observation (INO) ==
[2021-05-06 15:35] LABS: Basophils % 0.2 %; Eosinophils # 0.1 K/mcL (0.0-0.6); Eosinophils % 2.9 %; Hematocrit 36.4 % (37.5-50.1); Hemoglobin 12.2 g/dL (12.9-16.9); Lymphocytes # 1.2 K/mcL (0.6-4.6); Mean Corpuscular HGB Conc 33.5 g/dL (31.6-35.5); Mean Corpuscular Volume 98.4 fL (83.0-100.0); Mean Platelet Volume 10.9 fL (9.4-12.4); Monocytes # 0.4 K/mcL (0.0-1.3); Monocytes % 10.4 %; Neutrophils # 2.3 K/mcL (1.6-8.9); Platelet Count 133 K/mcL (140-400); Red Cell Distribution Width 12.8 % (11.5-14.5); Segmented Neutrophils % 56.5 %; White Blood Count 4.1 K/mcL (4.3-11.1)
[2021-05-06 15:49] LABS: INR 1.1; Prothrombin Time 12.8 Seconds (9.4-12.1)
[2021-05-06 15:51] LABS: Activated Partial Thrombo Time 27.3 Seconds (26.0-36.0)
[2021-05-06 15:55] LABS: BUN/Creatinine Ratio 13 (6-26); Blood Urea Nitrogen 10 mg/dL (8-23); Calcium 8.5 mg/dL (8.6-10.3); Carbon Dioxide 23 mEq/L (23-29); Chloride 107 mEq/L (98-107); Glucose 103 mg/dL (70-105); Osmolality,Calculated 283 (280-300); Potassium 3.5 mEq/L (3.5-5.1); Sodium 137 mEq/L (136-145); eGFR For African Americans > 60 (> 60); eGFR For Non-African Americans > 60 (> 60)
[2021-05-06 15:56] LABS: Troponin I < 0.03 ng/mL (< 0.04)
[2021-05-06] MEDS ORDERED: Naloxone 0.4 MG/ML INJ IVP PRN (17:23)
[2021-05-06 18:47] VITALS: BP 129/79; PULSE 69; TEMP 98.2; O2SAT 95
[2021-05-06] MEDS ORDERED: *HR* OxyCODONE/APAP 10/325 TABLET PO PRN (20:21)
== END 2021-05-06 21:00 | disposition left against medical advice (07) ==
LOC: 3BNU 14:03 → EMEROOARM 14:03 → 3BNU 17:24
PROVIDERS: ADMIT Internal Medicine; ATTEND Internal Medicine